=== PATIENT | female | born 1985 | race Caucasian/White ===

== ENCOUNTER → 2016-07-29 | Outpatient (CLI) | payer OTHER ==
[~2016-07-29] MED LIST: ACET50TA PO; IBUP-1114 PO; IBUP100SUS PO; PREN1TAB11 PO; PRENTAB26 PO; TUMS500C PO
[2016-07-29 12:34] LABS: ALBUMIN 3.4 GM/DL (3.2-5.2); ALBUMIN/GLOBULIN RATIO 0.94 (1.00-1.93); ALKALINE PHOSPHATASE 58 U/L (45-117); ALT/SGPT 22 U/L (12-78); ANION GAP 7 MEQ/L (8-16); AST/SGOT 18 U/L (15-37); BILIRUBIN,DIRECT < 0.1 MG/DL (0.0-0.2); BILIRUBIN,TOTAL 0.4 MG/DL (0.2-1.0); BLOOD UREA NITROGEN 13 MG/DL (7-18); CALCIUM LEVEL 8.6 MG/DL (8.5-10.1); CARBON DIOXIDE LEVEL 29 MEQ/L (21-32); CHLORIDE LEVEL 107 MEQ/L (98-107); CHOLESTEROL LEVEL 180 MG/DL (<200); CREATININE FOR GFR 0.62 MG/DL (0.55-1.02); GLOMERULAR FILTRATION RATE > 60.0 (>60); GLUCOSE, FASTING 83 MG/DL (70-105); POTASSIUM SERUM 4.1 MEQ/L (3.5-5.1); SODIUM LEVEL 143 MEQ/L (136-145); TRIGLYCERIDES LEVEL 275 MG/DL (<150)
== END ==
LOC: M LAB 10:54
PROVIDERS: ATTEND Nurse Practitioner Family
DX: A15.0 Tuberculosis of lung (principal); E04.0 Nontoxic diffuse goiter; Z13.220 Encounter for screening for lipoid disorders

== ENCOUNTER → 2017-05-29 | Outpatient (REF) | payer OTHER | LOC: M LAB REF 12:56 | DX: J11.1 Influenza due to unidentified influenza virus with other respiratory manifestations (principal) | CPT/HCPCS: 87633 ==

== ENCOUNTER 2017-07-03 09:22 | Emergency (ER) | payer OTHER ==
[2017-07-03] MEDS: METOCLOPRAMIDE INJ 10MG/2ML VIAL (J2765) IV (10:14)
[2017-07-03] MEDS: NS 1,000 ML IV (10:14)
[2017-07-03 10:17] LABS: BASO % 0.4 % (0.0-1.0); EOS # 0.4 10^3/uL (0.0-0.50); EOS % 4.6 % (0.0-3.0); HEMATOCRIT 42.6 % (36.0-47.0); HEMOGLOBIN 14.6 g/dl (12.0-16.0); IMMATURE GRANULOCYTE % 0.2 % (0-3.0); LYMPH # 1.8 10^3/uL (1.5-4.5); LYMPH % 22.2 % (24.0-44.0); MEAN CORPUSCULAR HEMOGLOBIN 30.6 pg (27.0-33.0); MEAN CORPUSCULAR HGB CONC 34.3 g/dl (32.0-36.5); MEAN CORPUSCULAR VOLUME 89.3 fl (80.0-96.0); MONO # 0.3 10^3/uL (0.0-0.8); MONO % 3.7 % (0.0-5.0); NEUTROPHILS # 5.7 10^3/uL (1.8-7.7); NEUTROPHILS % 68.9 % (36.0-66.0); PLATELET COUNT, AUTOMATED 172 10^3/uL (150-450); RED BLOOD COUNT 4.77 10^6/uL (4.00-5.40); RED CELL DISTRIBUTION WIDTH 12.5 % (11.5-14.5); WHITE BLOOD COUNT 8.3 10^3/uL (4.0-10.0)
[2017-07-03 10:43] LABS: ALBUMIN 3.4 GM/DL (3.2-5.2); ALBUMIN/GLOBULIN RATIO 0.81 (1.00-1.93); ALKALINE PHOSPHATASE 81 U/L (45-117); ALT/SGPT 35 U/L (12-78); ANION GAP 5 MEQ/L (8-16); AST/SGOT 33 U/L (7-37); BILIRUBIN,DIRECT < 0.1 MG/DL (0.0-0.2); BILIRUBIN,TOTAL 0.2 MG/DL (0.2-1.0); BLOOD UREA NITROGEN 10 MG/DL (7-18); CALCIUM LEVEL 8.3 MG/DL (8.5-10.1); CARBON DIOXIDE LEVEL 27 MEQ/L (21-32); CHLORIDE LEVEL 107 MEQ/L (98-107); CREATININE FOR GFR 0.75 MG/DL (0.55-1.30); GLOMERULAR FILTRATION RATE > 60.0 (>60); GLUCOSE, FASTING 88 MG/DL (70-100); HCG, SERUM QUANTITATIVE < 1.0 MIU/ML; LIPASE 116 U/L (73-393); POTASSIUM SERUM 3.7 MEQ/L (3.5-5.1); SODIUM LEVEL 139 MEQ/L (136-145); TOTAL PROTEIN 7.6 GM/DL (6.4-8.2)
[2017-07-03 10:57] LABS: INFLUENZA A AMPLIFICATION NEGATIVE (NEGATIVE); INFLUENZA B AMPLIFICATION NEGATIVE (NEGATIVE)
[2017-07-03 11:38] LABS: APPEARANCE, URINE CLOUDY (CLEAR); BACTERIA, URINE AUTO NEGATIVE (NEGATIVE); BILIRUBIN, URINE AUTO NEGATIVE (NEGATIVE); BLOOD, URINE BLOOD NEGATIVE (NEGATIVE); COLOR, URINE YELLOW (YELLOW); GLUCOSE, URINE (UA) AUTO NEGATIVE (NEGATIVE); KETONE, URINE AUTO NEGATIVE (NEGATIVE); LEUKOCYTE ESTERASE, URINE AUTO TRACE (NEGATIVE); MUCUS, URINE LARGE (NEGATIVE); NITRITE, URINE AUTO NEGATIVE (NEGATIVE); PROTEIN, URINE AUTO NEGATIVE (NEGATIVE); RBC, URINE AUTO 1 /HPF (0-3); SPECIFIC GRAVITY URINE AUTO 1.023 (1.002-1.035); SQUAMOUS EPITHELIAL CELL UR AU 38 /HPF (0-6); UROBILINOGEN, URINE AUTO 0.2 mg/dL (0.0-2.0); WBC, URINE AUTO 2 /HPF (0-3)
== END 2017-07-03 12:37 | disposition home or self-care (01) ==
LOC: M ED 09:22
DX: J06.9 Acute upper respiratory infection, unspecified (principal); J45.909 Unspecified asthma, uncomplicated; F33.9 Major depressive disorder, recurrent, unspecified; Z79.3 Long term (current) use of hormonal contraceptives
CPT/HCPCS: J2765

== ENCOUNTER 2018-07-04 13:43 | Emergency (ER) | payer OTHER ==
[~2018-07-04] VITALS: Ht 167.6 cm; Wt 80.3 kg
[~2018-07-04 13:43] MED LIST changes: +MAPA500T2 PO; +TESS100C PO; +TRI-TAB16; +ZOFR4TAB14 PO
[2018-07-04] MEDS ORDERED: SERT-155 (13:51)
[2018-07-04 14:56] LABS: INFLUENZA A AMPLIFICATION NEGATIVE (NEGATIVE); INFLUENZA B AMPLIFICATION NEGATIVE (NEGATIVE)
[2018-07-04] MEDS ORDERED: MUCI600T37 PO (15:10)
[2018-07-04] MEDS ORDERED: TESS100C PO (15:10)
[2018-07-04 15:16] VITALS: BP 121/83
== END 2018-07-04 15:27 | disposition home or self-care (01) ==
LOC: M ED 13:43
DX: J20.9 Acute bronchitis, unspecified (principal); J45.909 Unspecified asthma, uncomplicated; Z86.59 Personal history of other mental and behavioral disorders; Z88.8 Allergy status to other drugs, medicaments and biological substances

== ENCOUNTER → 2019-08-04 | Outpatient (CLI) | payer OTHER ==
[~2019-08-04] MED LIST changes: -ACET50TA PO; +IBUP100S44 PO; -IBUP100SUS PO; +MAPA500T17 PO; +MUCI600T37 PO; +SERT50TA29
--- NOTE | 2019-08-04 17:33 | REP ---
Clinical: Chronic bilateral knee pain. Technique: AP, lateral, bilateral oblique and sunrise views of the right and left knee. Findings: Right knee demonstrates minimal increased sclerosis along the medial tibial plateau as well as mild patellofemoral joint space narrowing. Remainder of the examination is age-appropriate. No acute fracture or dislocation. No effusion. Left knee demonstrates minimal increased sclerosis along the medial tibial plateau as well as mild patellofemoral joint space narrowing. Remainder of the examination is age-appropriate. No acute fracture or dislocation. Impression: Very minimal symmetric age-related degenerative changes. Electronically Signed by Honorio Arana MD 08/04/2019 05:25 P
== END ==
LOC: M WUC 13:07
PROVIDERS: ATTEND Physician Assistant
DX: M25.561 Pain in right knee (principal); M25.562 Pain in left knee

== ENCOUNTER → 2019-08-17 | Outpatient (CLI) | payer OTHER ==
[2019-08-17 12:05] LABS: BASO # 0.1 10^3/uL (0.0-0.2); BASO % 0.7 % (0.0-1.0); C REACTIVE PROTEIN QUANTITATIV < 0.30 MG/DL (0.00-0.30); EOS # 0.3 10^3/uL (0.0-0.5); EOS % 4.5 % (0.0-3.0); HEMATOCRIT 43.5 % (36.0-47.0); HEMOGLOBIN 14.6 g/dl (12.0-15.5); LYMPH # 2.2 10^3/uL (1.5-5.0); LYMPH % 30.8 % (24.0-44.0); MEAN CORPUSCULAR HEMOGLOBIN 30.7 pg (27.0-33.0); MEAN CORPUSCULAR HGB CONC 33.6 g/dl (32.0-36.5); MEAN CORPUSCULAR VOLUME 91.4 fl (80.0-96.0); MONO # 0.3 10^3/uL (0.0-0.8); NEUTROPHILS # 4.4 10^3/uL (1.5-8.5); NEUTROPHILS % 59.7 % (36.0-66.0); PLATELET COUNT, AUTOMATED 231 10^3/uL (150-450); RED BLOOD COUNT 4.76 10^6/uL (4.00-5.40); RHEUMATOID FACTOR QUANT < 10.0 IU/ML (<15.0); WHITE BLOOD COUNT 7.3 10^3/uL (4.0-10.0)
[2019-08-17 12:29] LABS: ERYTHROCYTE SEDIMENTATION RATE 12 mm/hr (0-20)
[2019-08-23 14:07] LABS: ANTI DOUBLE STRAND-DNA AB <1 IU/mL (0-9); ANTINUCLEAR ANTIBODIES DIRECT Positive (Negative); HLA-B27 Negative (.); Lyme Disease IgG/IgM Antibodie <0.91 ISR (0.00-0.90); Lyme Disease IgM Ab Quantitati <0.80 index (0.00-0.79); RNP ANTIBODIES <0.2 AI (0.0-0.9); SJOGREN'S ANTI SS-A <0.2 AI (0.0-0.9); SJOGREN'S ANTI SS-B 1.7 AI (0.0-0.9); SMITH ANTIBODIES <0.2 AI (0.0-0.9)
== END ==
LOC: M LAB 10:52
PROVIDERS: ATTEND Orthopaedic Surgery
DX: M25.562 Pain in left knee (principal)

== ENCOUNTER 2020-06-01 10:39 | Emergency (ER) | payer OTHER ==
[~2020-06-01] VITALS: Ht 167.6 cm; Wt 84.3 kg
--- OUTSIDE RECORDS SUMMARY | 2020-06-01 10:48 | CCD ---
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 Active Not available hydroxyzine HCl 25 mg tablet Take 1 tablet every day by oral route at bedtime. 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/24/2016 History Emotional State Finding Active 11/18/2017 History Pain in Right Knee Active 08/03/2019 History Pain in Left Knee Active 08/03/2019 History Seasonal Allergic Rhinitis Active 09/21/2019 Histo ry Mild Intermittent Asthma Active 09/21/2019 History Rheumatoid Arthritis of Multiple Joints Active 09/21/[address] Concept Active 09/21/2019 History Hypertrophic Condition of Skin Active 10/29/2019 H istory Screening for Malignant Neoplasm of Cervix Active 10/[address] Concept Active 10/29/2019 History Breast Neoplasm Screening Status Active 10/29/2019 History Procedures Notes: elbow surgery Results Lab Results None recorded. Past Encounters 03/06/2020 Tension-type Headache; Psychophysiologic Insomnia; Allergic Rhinitis Robson Beavers, RPA-C: [address] [facility], [facility] [address], [place] [address], Ph. Social History Tobacco Smoking Status Never Smoker Vaccine List Vaccine Type influenza, seasonal, injectable 02/13/2016 Tdap 10/15/2010 Plan of Care Reminders Provider Appointments None recorded. Lab None recorded. Referral None recorded. Procedures None recorded. Surgeries None recorded. Imaging None recorded. Vitals 03/06/2020 03:50PM ESTABLISHED [id number] Height Weight BMI Blood Pressure 66 in 183 lbs 6.4 oz 29.6 kg/m2 127/85 mm[Hg ] 10/29/2019 Height Weight Blood Pressure 66 in 183 lbs 2.08 oz 116/81 mm[Hg] 09/21/2019 Height Weight Blood Pressure 66 in 182 lbs 8 oz 118/82 mm[Hg] 08/03/2019 Height Weight Blood Pressure 66 in 181 lbs 4 oz 119/80 mm[Hg]
--- OUTSIDE RECORDS SUMMARY | 2020-06-01 10:48 | CCD ---
Author Organization Unknown Address [address] [place] [address] Phone [phone] Care Team Providers Care Press Loader Name Role Phone Robson Beavers Jeannette Unavailable Unavailable Allergies Code Code System Name Reaction Severity Status Onset NKDA Notes: SEASONAL Medications Name Status Start Date Stop Date albuterol sulfate HFA 90 mcg/actuation aerosol inhaler Active Not available cefuroxime axetil 500 mg tablet TAKE 1 TABLET BY MOUTH EVERY 12 HOURS FOR 10 DAYS Completed 03/06/2020 fluticasone propionate 50 mcg/actuation nasal spray,suspension SPRAY ONE SPRAY IN EACH NOSTRIL ONCE A DAY Active Not available hydroxyzine HCl 25 mg tablet TAKE ONE TABLET BY MOUTH AT BEDTIME Completed 11/2020 zawukpow-foaewmtvt-zrzcgzaxg 3.5 mg-10,000 unit/mL-1 % ear d rops,susp Completed 03/06/2020 prednisone 5 mg tablet TAKE TWO TABLETS BY MOUTH EVERY MORNING AND TAKE ONE TABLET BY MOUTH EVERY EVENING FOR 5 DAYS THEN TAKE ONE TABLET BY MOUTH TWICE A DAY FOR Completed 03/06/2020 sumatriptan 25 mg tablet TAKE 1 TABLET BY MOUTH AT HEADACHE ONSET REPEAT WITH 1 TABLET IF HEADACHE PERSIST AFTER 2 HOURS MAXIMUM DAILY DOSE 2 Active Not available Problems Name Status Onset [...] Results Lab Results None recorded. Past Encounters 05/22/2020 Painless Rectal Bleeding EL FalconC: [address] , [facility] [address], [place] [address], Ph. 03/06/2020 Tension-type Headache; Psychophysiologic Insomnia; Allergic Rhinitis EL SantoC: [address] , [facility] [address], [place] [address], Ph. Social History Tobacco Smoking Status Never Smoker Vaccine List Vaccine Type influenza, seasonal, injectable 02/13/2016 Tdap 10/15/2010 Plan of Care Patient Instructions Please go to the ER if bleeding recurred , faintness, dizziness, black tarry stool, abdominal pain, fever, chills, pain. We have referred you to gastroenterology Reminders Provider Appointments None recorded. Lab None recorded. Referral None recorded. Procedures None recorded. Surgeries None recorded. Imaging None recorded. Vitals 05/22/2020 11:50AM [facility] 20 Height Blood Pressure 66 in 153/93 mm[Hg] 03/06/2020 03:50PM ESTABLISHED [id number] Height Weight BMI Blood Pressure 66 in 183 lbs 6.4 oz 29.6 kg/m2 127/85 mm[Hg ] 10/29/2019 Height Weight BMI Blood Pressure 66 in 183 lbs 2.08 oz 29.66 kg/m2 116/81 mm[H g] 09/21/2019 Height Weight BMI Blood Pressure 66 in 182 lbs 8 oz 29.56 kg/m2 118/82 mm[Hg] 08/03/2019 Height Weight BMI Blood Pressure 66 in 181 lbs 4 oz 29.36 kg/m2 119/80 mm[Hg]
--- OUTSIDE RECORDS SUMMARY | 2020-06-01 10:49 | CCD ---
Author Author [facility] Organization [facility] Address Unknown Phone Unavailable Care Team Providers Care Surg Rn Name Role Phone BEAVERS, MICHAEL ROBSON RPA-C Unavailable Unavailable BEAVERS, MICHAEL ROBSON RPA-C Unavailable Unavailable BEAVERS, MICHAEL ROBSON RPA-C Unavailable Unavailable BEAVERS, MICHAEL ROBSON RPA-C Unavailable Unavailable BEAVERS, MICHAEL ROBSON RPA-C Unavailable Unavailable BEAVERS, MICHAEL ROBSON RPA-C Unavailable Unavailable BEAVERS, MICHAEL ROBSON RPA-C Unavailable Unavailable BEAVERS, MICHAEL ROBSON RPA-C Unavailable Unavailable BEAVERS, MICHAEL ROBSON RPA-C Unavailable Unavailable BEAVERS, MICHAEL ROBSON RPA-C Unavailable Unavailable BEAVERS, MICHAEL ROBSON RPA-C Unavailable Unavailable BEAVERS, MICHAEL ROBSON RPA-C Unavailable Unavailable BEAVERS, MICHAEL ROBSON RPA-C Unavailable Unavailable BEAEVRS, MICHAEL ROBSON RPA-C Unavailable Unavailable BEAVERS, MICHAEL ROBSON RPA-C Unavailable Unavailable BEAVERS, MICHAEL ROBSON RPA-C Unavailable Unavailable BEAVERS, MICHAEL ROBSON RPA-C Unavailable Unavailable BEAVERS, MICHAEL ROBSON RPA-C Unavailable Unavailable BEAVERS, MICHAEL ROBSON RPA-C Unavailable Unavailable BEAVERS, MICHAEL ROBSON RPA-C Unavailable Unavailable BEAVERS, MICHAEL ROBSON RPA-C Unavailable Unavailable BEAVERS, MICHAEL ROBSON RPA-C Unavailable Unavailable BEAVERS, MICHAEL ROBSON RPA-C Unavailable Unavailable BEAVERS, MICHAEL ROBSON RPA-C Unavailable Unavailable BEAVERS, MICHAEL ROBSON RPA-C Unavailable Unavailable BEAVERS, MICHAEL ROBSON RPA-C Unavailable Unavailable BEAVERS, MICHAEL ROBSON RPA-C Unavailable Unavailable BEAVERS, MICHAEL ROBSON RPA-C Unavailable Unavailable BEAVERS, MICHAEL ROBSON RPA-C Unavailable Unavailable BEAVERS, MICHAEL ROBSON RPA-C Unavailable Unavailable BEAVERS, MICHAEL ROBSON RPA-C Unavailable Unavailable BEAVERS, MICHAEL ROBSON RPA-C Unavailable Unavailable BEAVERS, MICHAEL ROBSON RPA-C Unavailable Unavailable BEAVERS, MICHAEL ROBSON RPA-C Unavailable Unavailable BEAVERS, MICHAEL ROBSON RPA-C Unavailable Unavailable BEAVERS, MICHAEL ROBSON RPA-C Unavailable Unavailable BEAVERS, MICHAEL ROBSON RPA-C Unavailable Unavailable BEAVERS, MICHAEL ROBSON RPA-C Unavailable Unavailable BEAVERS, MICHAEL ROBSON RPA-C Unavailable Unavailable SMALLWOOD, SUKHWINDER Unavailable Unavailable SMALLWOOD, SUKHWINDER Unavailable Unavailable SMALLWOOD, SUKHWINDER Unavailable Unavailable SMALLWOOD, SUKHWINDER Unavailable Unavailable SMALLWOOD, SUKHWINDER Unavailable Unavailable SMALLWOOD, SUKHWINDER Unavailable Unavailable SMALLWOOD, SUKHWINDER Unavailable Unavailable SMALLWOOD, SUKHWINDER Unavailable Unavailable SMALLWOOD, SUKHWINDER Unavailable Unavailable SMALLWOOD, SUKHWINDER Unavailable Unavailable SMALLWOOD, SUKHWINDER Unavailable Unavailable SMALLWOOD, SUKHWINDER Unavailable Unavailable SMALLWOOD, SUKHWINDER Unavailable Unavailable SMALLWOOD, SUKHWINDER Unavailable Unavailable SMALLWOOD, SUKHWINDER Unavailable Unavailable SMALLWOOD, SUKHWINDER Unavailable Unavailable SMALLWOOD, SUKHWINDER Unavailable Unavailable SMALLWOOD, SUKHWINDER Unavailable Unavailable SMALLWOOD, SUKHWINDER Unavailable Unavailable SMALLWOOD, SUKHWINDER Unavailable Unavailable SMALLWOOD, SUKHWINDER Unavailable Unavailable SMALLWOOD, SUKHWINDER Unavailable Unavailable SMALLWOOD, SUKHWINDER Unavailable Unavailable SMALLWOOD, SUKHWINDER Unavailable Unavailable SMALLWOOD, SUKHWINDER Unavailable Unavailable Casey Arita MD Unavailable Unavailable Casey Arita MD Unavailable Unavailable Casey Arita MD Unavailable Unavailable Casey Arita MD Unavailable Unavailable Casey Arita MD Unavailable Unavailable Pasniciuc, I Che DIAZ Unavailable Unavailable Pasniciuc, Casey Bolton MD Unavailable Unavailable Pasniciuc, I Che DIAZ Unavailable Unavailable Pasniciuc, Casey Bolton MD Unavailable Unavailable Pasniciuc, I Che DIAZ Unavailable Unavailable Pasniciuc, I Che DIAZ Unavailable Unavailable Pasniciuc, Casey Bolton MD Unavailable Unavailable Pasniciuc, Casey Bolton MD Unavailable Unavailable Pasniciuc, Casey Bolton MD Unavailable Unavailable Pasniciuc, Casey Bolton MD Unavailable Unavailable Pasniciuc, Casey Bolton MD Unavailable Unavailable Pasniciuc, I Che DIAZ Unavailable Unavailable Pasniciuc, I Che DIAZ Unavailable Unavailable Pasniciuc, I Che DIAZ Unavailable Unavailable Pasniciuc, Casey Bolton MD Unavailable Unavailable Pasniciuc, I Che DIAZ Unavailable Unavailable Pasniciuc, I Che DIAZ Unavailable Unavailable Pasniciuc, I Che DIAZ Unavailable Unavailable Pasniciuc, Casey Bolton MD Unavailable Unavailable Pasniciuc, Casey Bolton MD Unavailable Unavailable Pasniciuc, Casey Bolton MD Unavailable Unavailable Pasniciuc, Casey Bolton MD Unavailable Unavailable Pasniciuc, Casey Bolton MD Unavailable Unavailable Pasniciuc, I Che DIAZ Unavailable Unavailable Pasniciuc, Casey Bolton MD Unavailable Unavailable Pasniciuc, Casey Bolton MD Unavailable Unavailable Pasniciuc, Casey Bolton MD Unavailable Unavailable Pasniciuc, Casey Bolton MD Unavailable Unavailable Pasniciuc, Casey Bolton MD Unavailable Unavailable Pasniciuc, I Che DIAZ Unavailable Unavailable Pasniciuc, Casey Bolton MD Unavailable Unavailable Pasniciuc, Casey Bolton MD Unavailable Unavailable Pasniciuc, Casey Bolton MD Unavailable Unavailable Pasniciuc, Casey Bolton MD Unavailable Unavailable Pasniciuc, Casey Bolton MD Unavailable Unavailable Pasniciuc, Casey Bolton MD Unavailable Unavailable Pasniciuc, Casey Bolton MD Unavailable Unavailable Pasniciuc, Casey Bolton MD Unavailable Unavailable Pasniciuc, Casey Bolton MD Unavailable Unavailable Pasniciuc, Casey Bolton MD Unavailable Unavailable Pasniciuc, Casey Bolton MD Unavailable Unavailable Pasniciuc, Casey Bolton MD Unavailable Unavailable Pasniciuc, Casey Bolton MD Unavailable Unavailable Park, Eunmi Unavailable Fish, B Alvino DIAZ Unavailable Unavailable Fish, B Alvino DIAZ Unavailable Unavailable Fish, B Alvino DIAZ Unavailable Unavailable Fish, B Alvino DIAZ Unavailable Unavailable Fish, Mary Jo De lOiveira MD Unavailable Unavailable Fish, B Alvino DIAZ Unavailable Unavailable Fish, B Alvino DIAZ Unavailable Unavailable Fish, B Alvino DIAZ Unavailable Unavailable Fish, B Alvino DIAZ Unavailable Unavailable Fish, B Alvino DIAZ Unavailable Unavailable Fish, B Alvino DIAZ Unavailable Unavailable Fish, B Alvino DIAZ Unavailable Unavailable Fish, B Alvino DIAZ Unavailable Unavailable Fish, B Alvino DIAZ Unavailable Unavailable Fish, B Alvino DIAZ Unavailable Unavailable Fish, B Alvino DIAZ Unavailable Unavailable Fish, B Alvino DIAZ Unavailable Unavailable Fish, B Alvino DIAZ Unavailable Unavailable Fish, B Alvino DIAZ Unavailable Unavailable Fish, B Alvino DIAZ Unavailable Unavailable Fish, B Alvino DIAZ Unavailable Unavailable Fish, B Alvino DIAZ Unavailable Unavailable Fish, B Alvino DIAZ Unavailable Unavailable Fish, B Alvino DIAZ Unavailable Unavailable Fish, B Alvino DIAZ Unavailable Unavailable Fish, B Alvino DIAZ Unavailable Unavailable Fish, B Alvino DIAZ Unavailable Unavailable Fish, B Alvino DIAZ Unavailable Unavailable Fish, B Alvino DIAZ Unavailable Unavailable Fish, B Alvino DIAZ Unavailable Unavailable Fish, B Alvino DIAZ Unavailable Unavailable Fish, B Alvino DIAZ Unavailable Unavailable Fish, B Alvino DIAZ Unavailable Unavailable Fish, B Alvino DIAZ Unavailable Unavailable Fish, B Alvino DIAZ Unavailable Unavailable Fish, B Alvino DIAZ Unavailable Unavailable Fish, B Alvino DIAZ Unavailable Unavailable Fish, B Alvino DIAZ Unavailable Unavailable Fish, B Alvino DIAZ Unavailable Unavailable Fish, B Alvino DIAZ Unavailable Unavailable Fish, B Alvino DIAZ Unavailable Unavailable Fish, B Alvino DIAZ Unavailable Unavailable Fish, B Alvino DIAZ Unavailable Unavailable Fish, B Alvino DIAZ Unavailable Unavailable Fish, B Alvino DIAZ Unavailable Unavailable Fish, B Alvino DIAZ Unavailable Unavailable Fish, B Alvino DIAZ Unavailable Unavailable Fish, B Alvino DIAZ Unavailable Unavailable Fish, B Alvino DIAZ Unavailable Unavailable Fish, B Alvino DIAZ Unavailable Unavailable Fish, B Alvino DIAZ Unavailable Unavailable Fish, B Alvino DIAZ Unavailable Unavailable Fish, B Alvino DIAZ Unavailable Unavailable [facility], KGATES Unavailable Unavailable BEAVERS, MICHAEL ROBSON RPA-C Unavailable Unavailable BEAVERS, MICHAEL ROBSON RPA-C Unavailable Unavailable BEAVERS, MICHAEL ROBSON RPA-C Unavailable Unavailable BEAVERS, MICHAEL ROBSON RPA-C Unavailable Unavailable BEAVERS, MICHAEL ROBSON RPA-C Unavailable Unavailable BEAVERS, MICHAEL ROBSON RPA-C Unavailable Unavailable BEAVERS, MICHAEL ROBSON RPA-C Unavailable Unavailable BEAVERS, MICHAEL ROBSON RPA-C Unavailable Unavailable BEAVERS, MICHAEL ROBSON RPA-C Unavailable Unavailable BEAVERS, MICHAEL ROBSON RPA-C Unavailable Unavailable BEAVERS, MICHAEL ROBSON RPA-C Unavailable Unavailable BEAVERS, MICHAEL ROBSON RPA-C Unavailable Unavailable BEAVERS, MICHAEL ROBSON RPA-C Unavailable Unavailable BEAVERS, MICHAEL ROBSON RPA-C Unavailable Unavailable BEAVERS, MICHAEL ROBSON RPA-C Unavailable Unavailable BEAVERS, MICHAEL ROBSON RPA-C Unavailable Unavailable BEAVERS, MICHAEL ROBSON RPA-C Unavailable Unavailable BEAVERS, MICHAEL ROBSON RPA-C Unavailable Unavailable BEAVERS, MICHAEL ROBSON RPA-C Unavailable Unavailable BEAVERS, MICHAEL ROBSON RPA-C Unavailable Unavailable BEAVERS, MICHAEL ROBSON RPA-C Unavailable Unavailable BEAVERS, MICHAEL ROBSON RPA-C Unavailable Unavailable BEAVERS, MICHAEL ROBSON RPA-C Unavailable Unavailable BEAVERS, MICHAEL ROBSON RPA-C Unavailable Unavailable BEAVERS, MICHAEL ROBSON RPA-C Unavailable Unavailable BEAVERS, MICHAEL ROBSON RPA-C Unavailable Unavailable BEAVERS, MICHAEL ROBSON RPA-C Unavailable Unavailable BEAVERS, MICHAEL ROBSON RPA-C Unavailable Unavailable BEAVERS, MICHAEL ROBSON RPA-C Unavailable Unavailable BEAVERS, MICHAEL ROBSON RPA-C Unavailable Unavailable BEAVERS, MICHAEL ROBSON RPA-C Unavailable Unavailable BEAVERS, MICHAEL ROBSON RPA-C Unavailable Unavailable BEAVERS, MICHAEL ROBSON RPA-C Unavailable Unavailable BEAVERS, MICHAEL ROBSON RPA-C Unavailable Unavailable BEAVERS, MICHAEL ROBSON RPA-C Unavailable Unavailable BEAVERS, MICHAEL ROBSON RPA-C Unavailable Unavailable BEAVERS, MICHAEL ROBSON RPA-C Unavailable Unavailable BEAVERS, MICHAEL ROBSON RPA-C Unavailable Unavailable BEAVERS, MICHAEL ROBSON RPA-C Unavailable Unavailable [facility], RFROST BEAVERS PA ROBSON Unavailable Unavailable Re-disclosure Warning The records that you are about to access may contain information from federally-assisted alcohol or drug abuse programs. If such information is present, then the following federally mandated warning applies: This information has been disclosed to you from records protected by federal confidentiality rules (42 CFR part 2). The federal rules prohibit you from making any further disclosure of this information unless further disclosure is expressly permitted by the written consent of the person to whom it pertains or as otherwise permitted by 42 CFR part 2. A general authorization for the release of medical or other information is NOT sufficient for this purpose. The Federal rules restrict any use of the information to criminally investigate or prosecute any alcohol or drug abuse patient.The records that you are about to access may contain highly sensitive health information, the redisclosure of which is protected by Article 27-F of the [facility] Public Health law. If you continue you may have access to information: Regarding HIV / AIDS; Provided by facilities licensed or operated by the [facility] Office of Mental Health; or Provided by the [facility] Office for People With Developmental Disabilities. If such information is present, then the following [facility] mandated warning applies: This information has been disclosed to you from confidential records which are protected by state law. State law prohibits you from making any further disclosure of this information without the specific written consent of the person to whom it pertains, or as otherwise permitted by law. Any unauthorized further disclosure in violation of state law may result in a fine or mcc sentence or both. A general authorization for the release of medical or other information is NOT sufficient authorization for further disc losure. Allergies and Adverse Reactions Type Description Substance Reaction Status Data Source(s ) Miscellaneous allergy SEASONAL SEASONAL [facility] Family History Family Member Name Family Member Gender Family Member Status Date o f Status Description Data Source(s) Unknown Female Problem (finding) 10/11/2019 12:00:00 AM EDT [facility] ([facility]) Unknown Female Problem (finding) 10/11/2019 12:00:00 AM EDT [facility] ([facility]) Encounters Encounter Providers Location Date Indications Data Source(s ) LALA Falcon: [address], [address], [place] [address], Ph. Attender: SUKHWINDER SMALLWOOD [facility] Medical 05/22/2020 12:00:00 AM CATHERINE MCKEON ([facility]) LALA Santo: [address], [place] [address], Ph. Attender: ROBSON REEVES [facility] 03/06/2020 12:00:00 AM EST MIKE ([facility]) LALA Santo: [address], [place] [address], Ph. Attender: ROBSON REEVES [facility] 03/06/2020 12:00:00 AM EST MIKE ([facility]) Psychiatric Diagnostic Evaluation (Non-Medical) Attender: [facility] 01/27/2020 12:00:00 PM EDT - 01/27/2020 12:00:00 PM EDT [facility] ([facility]) Attender: [facility] 01/27/2020 12:00:00 AM EDT [facility] ([facility]) Extended Individual Psychotherapy - 45 min Attender: [facility] 01/12/2020 09:00:00 AM EDT - 01/12/2020 09:00:00 AM EDT [facility] ([facility]) Attender: [facility] 01/12/2020 12:00:00 AM EDT [facility] ([facility]) OutpatientOFFICE/OUTPATIENT VISIT, EST Attender: Che mcginnis MD [facility] 12/13/2019 03:40:00 PM EDT - 12/13/2019 03:40:00 PM ED T [facility] Plica syndrome, right knee Pain Outpatient Attender: ELIU HAYNES [facility] 06/2019 12:55:00 PM EDT [facility] Outpatient Attender: ROBSON REEVES [facility] 10/29/2019 01:38:01 PM EDT [facility] Outpatient Referrer: Che Arita MD 10/11/2019 04:09:5 9 PM EDT [facility] OutpatientOFFICE/OUTPATIENT VISIT, NEW Attender: Che mcginnis MD [facility] 10/11/2019 03:00:00 PM EDT - 10/11/2019 03:00:00 PM ED T RashPainPolyarthritisOther specified abnormal findings of blood chemistry [facility] ([facility]) Rash Pain Polyarthritis Other specified abnormal findings of blo od chemistry Outpatient Attender: ROBSON BEAVERS LALA [facility] 09/27/2019 10:40:02 AM EDT [facility] Outpatient Attender: ELIU HAYNES PAYTONJERONIMO [facility] 09/12 10:39:01 AM EDT [facility] Outpatient Attender: ROBSON BEAVERS LALA [facility] 09/22/2019 12:00:24 AM EDT [facility] Outpatient Attender: ROBSON BEAVERS LALA [facility] 09/21/2019 09:38:01 AM EDT [facility] Outpatient Attender: ELIU HAYNES ERNST [facility] 05/2019 02:15:00 PM EDT [facility] Outpatient Attender: Alvino Schultz MD Physical Therapy 09/09/2019 0 2:45:00 PM EDT [facility] ([facility]) Outpatient [facility]: [facility]/13 10:34:03 AM EDT [facility] OFFICE OUTPATIENT NEW 30 MINUTES Attender: Alvino Schultz MD Physic al Therapy 08/16/2019 10:45:00 AM EDT [facility] ([facility]) Outpatient Att[facility]: [facility] 07/14 09:52:00 AM EDT [facility] 10:12:01 AM ED T [facility] Outpatient Attender: [facility]EN [facility] 08/03/2019 10:06:00 AM ED T [facility]/03/2019 10:03:00 AM ED T [facility]: [facility]/03/2019 09:53:00 AM ED T [facility]: [facility] 07/30/2019 10:39:00 AM ED [facility]: [facility] 07/02/2019 12:47:00 PM ED [facility] Outpatient [facility]: [facility]/02/2019 12:46:00 PM ED T [facility] Medications Medication Brand Name Start Date Product Form Dose Route Admi nistrative Instructions Pharmacy Instructions Status Indications Reaction Description Data Source(s) 25 mg 03/06/2020 12:00:00 AM EST tablet 30 TAKE ONE TABLET BY MOUTH AT BEDTIME TAKE ONE TABLET BY MOUTH AT BEDTIME SOLD: 03/07/2020 [facility] 25 mg 03/06/2020 12:00:00 AM EST tablet 9 TAKE 1 TABLET BY MOUTH AT HEADACHE ONSET REPEAT WITH 1 TABLET IF HEADACHE PERSIST AFTER 2 HOURS MAXIMUM DAILY DOSE = 2 TAKE 1 TABLET BY MOUTH AT HEADACHE ONSET REPEAT WITH 1 TABLET IF HEADACHE PERSIST AFTER 2 HOURS MAXIMUM DAILY DOSE = 2 SOLD: 03/07/2020 [facility] 50 mcg/actuation 03/06/2020 12:00:00 AM EST spray,suspension 16 SPRAY ONE SPRAY IN EACH NOSTRIL ONCE A DAY SPRAY ONE SPRAY IN EACH NOSTRIL ONCE A DAY SOLD: 03/07/2020 [facility] 5 mg 10/11/2019 12:00:00 AM EDT tablet 30 TAKE TWO TABLETS BY MOUTH EVERY MORNING AND TAKE ONE TABLET BY MOUTH EVERY EVENING FOR 5 DAYS, THEN TAKE ONE TABLET BY MOUTH TWICE A DAY FOR 5 DAYS, THEN TAKE ONE TABLET BY MOUTH EVERY MORNING FOR 5 DAYS TAKE TWO TABLETS BY MOUTH EVERY MORNING AND TAKE ONE TABLET BY MOUTH EVERY EVENING FOR 5 DAYS, THEN TAKE ONE TABLET BY MOUTH TWICE A DAY FOR 5 DAYS, THEN TAKE ONE TABLET BY MOUTH EVERY MORNING FOR 5 DAYS SOLD: 10/18/2019 [facility] Prednisone 5 MG Oral Tablet prednisone 5 mg tablet prednison e 5 mg tablet 10/11/2019 12:00:00 AM EDT completed take 2 tablets in am and one in pm for 5 days; 1 tablet BID for 5 days; 1 tablet in am for 5 days. [facility] ([facility]) 90 mcg/actuation 09/21/2019 12:00:00 AM EDT HFA aerosol inha ler 8 INHALE 2 PUFFS BY MOUTH EVERY 4 HOURS NEEDED FOR WHEEZING OR FOR SHORTNESS OF BREATH INHALE 2 PUFFS BY MOUTH EVERY 4 HOURS NEEDED FOR WHEEZING OR FOR SHORTNESS OF BREATH SOLD: 09/23/2019 [facility] 3.5-10,000-1 mg/mL-unit/mL-% 08/20/2019 12:00:00 AM EDT drop s,suspension 10 INSTILL 3 DROPS IN THE AFFECTED EAR(S) THREE TIMES A DAY FOR 7 DAYS INSTILL 3 DROPS IN THE AFFECTED EAR(S) THREE TIMES A DAY FOR 7 DAYS SOLD: 08/20/2019 [facility] 500 mg 04/19/2019 12:00:00 AM EST tablet 20 TAKE 1 TABLET BY MOUTH EVERY 12 HOURS FOR 10 DAYS TAKE 1 TABLET BY MOUTH EVERY 12 HOURS FOR 10 DAYS SOLD : 04/19/2019 [facility] Cefuroxime 500 MG Oral Tablet cefuroxime axetil 500 mg tablet TAKE 1 TABLET BY MOUTH EVERY 12 HOURS FOR 10 DAYS cefuroxime axetil 500 mg tablet TAKE 1 T ABLET BY MOUTH EVERY 12 HOURS FOR 10 DAYS co mpleted cefuroxime 500 MG Oral Tablet MIKE ([facility]) Prednisone 5 MG Oral Tablet prednisone 5 mg tablet TAKE TWO TABLETS BY MOUTH EVERY MORNING AND TAKE ONE TABLET BY MOUTH EVERY EVENING FOR 5 DAYS THEN TAKE ONE TABLET BY MOUTH TWICE A DAY FOR prednisone 5 mg tablet TAKE TWO TABLETS BY MOUTH EVERY MORNING AND TAKE ONE TABLET BY MOUTH EVERY EVENING FOR 5 DAYS THEN TAKE ONE TABLET BY MOUTH TWICE A DAY FOR completed prednisone 5 MG Oral Tablet [facility] ([facility]) Hydroxyzine Hydrochloride 25 MG Oral Tab let hydroxyzine HCl 25 mg tablet TAKE ONE TABLET BY MOUTH AT BEDTIME hydroxyzine HCl 25 mg tablet TAKE ONE TA BLET BY MOUTH AT BEDTIME completed hydroxyzine hydrochloride 25 MG Oral Tablet [facility] ([facility]) Cefuroxime 500 MG Oral Tablet cefuroxime axetil 500 mg tablet TAKE 1 TABLET BY MOUTH EVERY 12 HOURS FOR 10 DAYS cefuroxime axetil 500 mg tablet TAKE 1 T ABLET BY MOUTH EVERY 12 HOURS FOR 10 DAYS co mpleted cefuroxime 500 MG Oral Tablet [facility] ([facility]) Hydrocortisone 10 MG/ML / Neomycin 3.5 M G/ML / Polymyxin B 56273 UNT/ML Otic Suspension jvwtsgoi-apfqiyefg-ohbafjjwf 3.5 mg-10,000 unit/mL-1 % ear drops,susp uzorboqm-qpvrqamuk-fqcrzhkoo 3.5 mg-10,000 unit/mL-1 % ear drops,susp completed hydrocortisone 1 0 MG/ML / neomycin 3.5 MG/ML / polymyxin B 45501 UNT/ML Otic Suspension MIKE ([facility]) Prednisone 5 MG Oral Tablet prednisone 5 mg tablet TAKE TWO TABLETS BY MOUTH EVERY MORNING AND TAKE ONE TABLET BY MOUTH EVERY EVENING FOR 5 DAYS THEN TAKE ONE TABLET BY MOUTH TWICE A DAY FOR prednisone 5 mg tablet TAKE TWO TABLETS BY MOUTH EVERY MORNING AND TAKE ONE TABLET BY MOUTH EVERY EVENING FOR 5 DAYS THEN TAKE ONE TABLET BY MOUTH TWICE A DAY FOR completed prednisone 5 MG Oral Tablet [facility] ([facility]) Hydrocortisone 10 MG/ML / Neomycin 3.5 M G/ML / Polymyxin B 56741 UNT/ML Otic Suspension uoduhlib-inhyqymar-idwsbucdz 3.5 mg-10,000 unit/mL-1 % ear drops,susp huajcrkl-lokbarith-imjtvolke 3.5 mg-10,000 unit/mL-1 % ear drops,susp completed hydrocortisone 1 0 MG/ML / neomycin 3.5 MG/ML / polymyxin B 89573 UNT/ML Otic Suspension [facility] ([facility]) Insurance Providers Payer name Policy type / Coverage type Policy ID Covered constitution party ID Covered constitution party's relationship to ellis Policy Ellis Plan Information [facility] MCDO [id number] SP [id number] Managed [facility] - [facility] Community Plan P [id number] S [id number] Medicaid S [id number] S [id number] Managed Care - Community Plan [facility] P [id number] S [id number] Managed Care - Community Plan [facility] P [id number] S [id number] Medicaid S [id number] S [id number] [employer] MCDO [id number] SP [id number] MEDICAID [id number] SP [id number] [facility](MCAID) O [id number] S [id number] MEDICAID M [id number] [facility] [employer] M[employer]O [id number] SP [id number] [employer] [id number] SP [id number] [employer] UNAVAILABLE UNAVAILABLE [employer] [id number] SP [id number] O BLUE [id number] SP [id number] O BLUE [id number] SP [id number] [employer] P [id number] S [id number] Problems, Conditions, and Diagnoses Code Display Name Description Problem Type Effective Dates Data Source(s) F33.1 Major depressive disorder, recurrent, mo derate Major Depressive Disorder, Recurrent episode, Moderate Condition 01/27/2020 12:00:00 AM EDT [facility] ([facility]) 701.9 Skin tag Skin tag 10/29/2019 01:37:30 PM ED T [facility] left nipple Z12.39 Encounter for other screening for malign ant neoplasm of breast Encounter for other screening for malignant neoplasm of breast 0 10/29/2019 01:37:30 PM EDT [facility] V76.2 Screening for malignant neoplasms of the cervix Screening for malignant neoplasms of the cervix 10/29/2019 01:37:30 PM EDT [facility] Z01.419 Encounter for gynecological examination (general) (routine) without abnormal findings Encounter for gynecological examination (general) (routine) without abnormal findings 10/29/2019 01:37:30 PM EDT [place] Noah barr [facility] 714.0 Rheumatoid arthritis of multiple joints Rheumatoid arthritis of multiple joints 10/29/2019 01:37:30 PM EDT [facility] 09/2019 [facility] [id number] Breast neoplasm screening status Breast Neoplasm Screening Status Problem 10/29/2019 12:00:00 AM EDT [place] ([facility]) [id number] SNOMED CT Concept SNOMED CT Concept Problem 10/28 12:00:00 AM EDT [place] ([facility]) [id number] Screening for malignant neoplasm of cerv ix Screening for Malignant Neoplasm of Cervix Problem 10/29/2019 12:00:00 AM EDT [place] ([facility]) [id number] Hypertrophic condition of skin Hypertrophic Condition of Skin Problem 10/29/2019 12:00:00 AM EDT [place] ([facility]) [id number] Breast neoplasm screening status Breast Neoplasm Screening Status Problem 10/29/2019 12:00:00 AM EDT [place] ([facility]) [id number] SNOMED CT Concept SNOMED CT Concept Problem 10/28 12:00:00 AM EDT [place] ([facility]) [id number] Screening for malignant neoplasm of cerv ix Screening for Malignant Neoplasm of Cervix Problem 10/29/2019 12:00:00 AM EDT [place] ([facility]) 76554914 Hypertrophic condition of skin Hypertrophic Condition of Skin Problem 10/29/2019 12:00:00 AM EDT [place] ([facility]) V85.25 Body Mass Index 29.0-29.9, adult Body Mass Index 29.0- 29.9, adult 09/27/2019 10:38:09 AM EDT [facility] V18.0 Family history of diabetes mellitus Family history of diabetes mellitus 09/21/2019 09:37:51 AM EDT [facility] [id number] Other seasonal allergic rhinitis Other seasonal allerg ic rhinitis 09/21/2019 09:37:51 AM EDT [facility] [id number] Mild intermittent asthma, uncomplicated Mild intermittent asthma, uncomplicated 09/21/2019 09:37:51 AM EDT [facility] Z00.00 Encounter for general adult medical examination without abnormal findings Encounter for general adult medical examination without abno rmal findings 09/21/2019 09:37:51 AM EDT [facility] [id number] SNOMED CT Concept SNOMED CT Concept Problem 09/20 12:00:00 AM EDT [place] ([facility]) [id number] Rheumatoid arthritis of multiple joints Rheumatoid Arthritis of Multiple Joints Problem 09/21/2019 12:00:00 AM EDT [place] ([facility]) [id number] Mild intermittent asthma Mild Intermittent Asthma Prob peg 09/21/2019 12:00:00 AM EDT [place] ([facility]) [id number] Seasonal allergic rhinitis Seasonal Allergic Rhinitis Problem 09/21/2019 12:00:00 AM EDT [place] ([facility]) [id number] SNOMED CT Concept SNOMED CT Concept Problem 09/20 12:00:00 AM EDT [place] ([facility]) 355614362 Rheumatoid arthritis of multiple joints Rheumatoid Arthritis of Multiple Joints Problem 09/21/2019 12:00:00 AM EDT [place] ([facility]) 870271343 Mild intermittent asthma Mild Intermittent Asthma Prob peg 09/21/2019 12:00:00 AM EDT [place] ([facility]) 039752373 Seasonal allergic rhinitis Seasonal Allergic Rhinitis Problem 09/21/2019 12:00:00 AM EDT [place] ([facility]) 719.46 Pain in left knee Pain in left knee 08/03/2019 10:10:31 AM EDT [facility] 719.46 Pain in right knee Pain in right knee 0 10:10:31 AM EDT [facility] [id number] Pain in left knee Pain in Left Knee Problem 12:00:00 AM EDT [place] ([facility]) [id number] Pain in right knee Pain in Right Knee Problem 08/03/2019 12:00:00 AM EDT [place] ([facility]) [id number] Pain in left knee Pain in Left Knee Problem 12:00:00 AM EDT [place] ([facility]) [id number] Pain in right knee Pain in Right Knee Problem 08/03/2019 12:00:00 AM EDT [place] ([facility]) Surgeries/Procedures Procedure Description Date Indications Data Source(s) Psychiatric Diagnostic Evaluation (Non-Medical) 01/27/2020 12:00:00 AM EDT - 01/27/2020 12:00:00 AM EDT [facility] ([facility]) Psychiatric Diagnostic Evaluation (Non-Medical) 2019 12:00:00 AM EDT [facility] ([facility]) Extended Individual Psychotherapy - 45 min 01/12/2020 12:00:00 AM EDT - 01/12/2020 12:00:00 AM EDT [facility] ([facility]) Extended Individual Psychotherapy - 45 min 0 12:00:00 AM EDT [facility] ([facility]) OFFICE/OUTPATIENT VISIT, [facility] 12/13/2019 12:00:00 AM EDT - 12/13/2019 12:00:00 AM EDT [facility] ([facility]) OFFICE/OUTPATIENT VISIT, NEW 10/11/2019 12:00:00 AM EDT - 10/11/2019 12:00:00 AM EDT [facility] ([facility]) CERVICAL SPINE X-RAY, 4 VIEWS 10/11/2019 12:00:00 AM EDT - 10/11/2019 12:00:00 AM EDT [facility] ([facility]) CCP ANTIBODY 10/11/2019 12:00:00 AM EDT - 10/11/2019 1 2:00:00 AM EDT [facility] ([facility]) RHEUMATOID FACTOR, QUANT 10/11/2019 12:0 0:00 AM EDT - 10/11/2019 12:00:00 AM EDT [facility] ([facility]) ANTINUCLEAR ANTIBODIES ([facility]) Titer By SWT 10/11/2019 12:00:00 AM EDT - 10/11/2019 12:00:00 AM EDT [facility] ROUTINE VENIPUNCTURE 10/11/2019 12:00:00 AM EDT - 10/11/2019 12:00:00 AM EDT [facility] ([facility]) CCP ANTIBODY 10/11/2019 12:00:00 AM EDT - 10/11/2019 1 2:00:00 AM EDT [facility] ([facility]) RHEUMATOID FACTOR, QUANT 10/11/2019 12:0 0:00 AM EDT - 10/11/2019 12:00:00 AM EDT [facility] ([facility]) ASSAY OF BLOOD/URIC ACID 10/11/2019 12:0 0:00 AM EDT - 10/11/2019 12:00:00 AM EDT [facility] ([facility]) ANTINUCLEAR ANTIBODIES ([facility]) Titer By SWT 10/11/2019 12:00:00 AM EDT - 10/11/2019 12:00:00 AM EDT [facility] C-REACTIVE PROTEIN 10/11/2019 12:00:00 AM EDT - 2019 12:00:00 AM EDT [facility] ([facility]) RBC SED RATE, AUTOMATED 10/11/2019 12:00 :00 AM EDT - 10/11/2019 12:00:00 AM EDT [facility] ([facility]) MRI Lower Extremity Any Joint 08/19/2019 12:00:00 AM E DT [place] ([facility]) MRI Lower Extremity Any Joint 08/19/2019 12:00:00 AM E DT [facility] ([facility]) Results ID Date Data Source [id number] 05/23/2020 02:00:00 PM EST [facility] Name Value Range Interpretation Code Description Data Genevieve rce(s) Supporting Document(s) SARS coronavirus 2 RNA Not Detected [facility] [place] This lab was ordered by [facility] and reported by [facility]. ID Date Data Source [id number] 05/16/2020 10:30:00 AM EST [facility] Name Value Range Interpretation Code Description Data Genevieve rce(s) Supporting Document(s) SARS coronavirus 2 RNA Not Detected [facility] [place] This lab was ordered by [facility] and reported by [facility]. ID Date Data Source [id number] 05/09/2020 02:00:00 PM EST [facility] Name Value Range Interpretation Code Description Data Genevieve rce(s) Supporting Document(s) SARS coronavirus 2 RNA Not Detected [facility] [place] This lab was ordered by [facility] and reported by [facility]. ID Date Data Source [id number] 05/02/2020 10:30:00 AM EST [facility] Name Value Range Interpretation Code Description Data Genevieve rce(s) Supporting Document(s) SARS coronavirus 2 RNA Not Detected [facility] [place] This lab was ordered by [facility] and reported by [facility]. ID Date Data Source [id number] 04/25/2020 03:00:00 PM EST [facility] Name Value Range Interpretation Code Description Data Genevieve rce(s) Supporting Document(s) SARS coronavirus 2 RNA Not Detected [facility] [place] This lab was ordered by [facility] and reported by [facility]. ID Date Data Source [id number] 04/18/2020 01:00:00 PM EST [facility] Name Value Range Interpretation Code Description Data Genevieve rce(s) Supporting Document(s) SARS coronavirus 2 RNA Not Detected [facility] [place] This lab was ordered by [facility] and reported by [facility]. ID Date Data Source [id number] 04/11/2020 03:05:00 PM EST [facility] Name Value Range Interpretation Code Description Data Genevieve rce(s) Supporting Document(s) SARS coronavirus 2 RNA [facility] This lab was ordered by [facility] and reported by [facility]. ID Date Data Source [id number] 04/04/2020 02:00:00 PM EST [facility] Name Value Range Interpretation Code Description Data Genevieve rce(s) Supporting Document(s) SARS coronavirus 2 RNA [facility] This lab was ordered by [facility] and reported by [facility]. ID Date Data Source [id number] 03/28/2020 09:15:00 AM EST [facility] Name Value Range Interpretation Code Description Data Genevieve rce(s) Supporting Document(s) SARS coronavirus 2 RNA [facility] This lab was ordered by [facility] and reported by [facility]. ID Date Data Source [id number] 03/21/2020 01:05:00 PM EST [facility] Name Value Range Interpretation Code Description Data Genevieve rce(s) Supporting Document(s) SARS coronavirus 2 RNA [facility] This lab was ordered by [facility] and reported by [facility]. ID Date Data Source [id number] 03/16/2020 08:39:00 AM EST [facility] Name Value Range Interpretation Code Description Data Genevieve rce(s) Supporting Document(s) SARS coronavirus 2 RNA [facility] This lab was ordered by [facility] and reported by [facility]. ID Date Data Source [id number] 03/07/2020 09:00:00 AM EST [facility] Name Value Range Interpretation Code Description Data Genevieve rce(s) Supporting Document(s) SARS coronavirus 2 RNA [facility] This lab was ordered by [facility] and reported by [facility]. ID Date Data Source [id number] 02/29/2020 10:30:00 AM EST [facility] Name Value Range Interpretation Code Description Data Genevieve rce(s) Supporting Document(s) SARS coronavirus 2 RNA [facility] This lab was ordered by [facility] and reported by [facility]. ID Date Data Source [id number] 02/22/2020 12:00:00 PM EST [facility] Name Value Range Interpretation Code Description Data Genevieve rce(s) Supporting Document(s) SARS coronavirus 2 RNA [facility] This lab was ordered by [facility] and reported by [facility]. ID Date Data Source [id number] 02/15/2020 10:38:00 AM EST [facility] Name Value Range Interpretation Code Description Data Genevieve rce(s) Supporting Document(s) SARS coronavirus 2 RNA [facility] This lab was ordered by [facility] and reported by [facility]. ID Date Data Source [id number] 02/08/2020 02:00:00 PM EDT [facility] Name Value Range Interpretation Code Description Data Genevieve rce(s) Supporting Document(s) SARS coronavirus 2 RNA [facility] This lab was ordered by [facility] and reported by [facility]. ID Date Data Source [id number] 02/01/2020 02:25:00 PM EDT [facility] Name Value Range Interpretation Code Description Data Genevieve rce(s) Supporting Document(s) SARS coronavirus 2 RNA [facility] This lab was ordered by [facility] and reported by [facility]. ID Date Data Source [id number] 01/25/2020 10:35:00 AM EDT [facility] Name Value Range Interpretation Code Description Data Genevieve rce(s) Supporting Document(s) SARS coronavirus 2 RNA [facility] This lab was ordered by [facility] and reported by [facility]. ID Date Data Source [id number] 01/18/2020 10:00:00 AM EDT [facility] Name Value Range Interpretation Code Description Data Genevieve rce(s) Supporting Document(s) SARS coronavirus 2 RNA [facility] This lab was ordered by [facility] and reported by [facility]. ID Date Data Source [id number] 01/11/2020 09:00:00 AM EDT [facility] Name Value Range Interpretation Code Description Data Genevieve rce(s) Supporting Document(s) SARS coronavirus 2 RNA [facility] This lab was ordered by [facility] and reported by [facility]. ID Date Data Source [id number] 01/06/2020 10:00:00 AM EDT [facility] Name Value Range Interpretation Code Description Data Genevieve rce(s) Supporting Document(s) SARS coronavirus 2 RNA [facility] This lab was ordered by [facility] and reported by [facility]. ID Date Data Source [id number] 12/28/2019 11:05:00 AM EDT [facility] Name Value Range Interpretation Code Description Data Genevieve rce(s) Supporting Document(s) SARS coronavirus 2 RNA [facility] This lab was ordered by [facility] and reported by [facility]. ID Date Data Source [id number] 12/21/2019 12:00:00 PM EDT [facility] Name Value Range Interpretation Code Description Data Genevieve rce(s) Supporting Document(s) SARS coronavirus 2 RNA [facility] This lab was ordered by [facility] and reported by [facility]. ID Date Data Source [id number] 12/16/2019 11:00:00 AM EDT [facility] Name Value Range Interpretation Code Description Data Genevieve rce(s) Supporting Document(s) SARS coronavirus 2 RNA [facility] This lab was ordered by [facility] and reported by [facility]. ID Date Data Source [id number] 12/07/2019 11:09:00 AM EDT [facility] Name Value Range Interpretation Code Description Data Genveieve rce(s) Supporting Document(s) SARS coronavirus 2 RNA [facility] This lab was ordered by [facility] and reported by [facility]. ID Date Data Source [id number] 11/02/2019 03:32:00 PM EDT [facility] Name Value Range Interpretation Code Description Data Genevieve rce(s) Supporting Document(s) SARS coronavirus 2 RNA [facility] This lab was ordered by [facility] and reported by [facility]. ID Date Data Source [id number] 10/29/2019 01:07:25 PM EDT [facility] Measurements & CalculationsHeight: 66 inches (5 ft. 6 in.) 167.64 cm Weight: 183 pounds 2 oz. 83.24 kg Body Mass Index (BMI): 29.66BMI Interpretation: OverweightBody Surface Area (BSA): 1.93Weight Management Education Done (Nutrition/Physical Activity)Vital SignsTemperature: 98.7F 37.06C tympanic Pulse Rate: 83 beats/minuteRespiratory Rate: 18 respirations/minuteBlood Pressure: 116/81 left arm sitting automaticO2 Saturation: 97% Vital Signs performed by: Bernice Dowell LPN, October 29, 2019 1:09 PMInitial Intake Information From: patientRoom #: 2Infectious Disease / Travel ScreeningRecent travel for you or any close contacts? NoHave you had any close contact with anyone diagnosed with or under investigation for COVID-19 (coronavirus)? NoFever? NoRespiratory symptoms: cough, cold, congestion, shortness of breath, difficulty breathing? NoLoss of smell? NoLoss of taste? NoSmoking, Tobacco, Vaping or Smoke Exposure StatusSmoke Status: former smokerTobacco Use: NoDo you vape? NoPassive Smoke Exposure: YesPassive Smoke Exposure comments: outsideMenstrual HistoryLast Menstrual Period (LMP): 10/10/2019Any possibility of ? NoHealthcare HistorySince your last office visit...Have you been admitted to the hospital? NoHave you been to an emergency room (ER) or urgent care clinic? NoHave you seen another healthcare provider? Yes - ortho groupHave you seen a dentist? Yes - [facility]Int[facility] performed by: Bernice Dowell LPN, October 29, 2019 1:10 PMRate Your HealthIn general, would you say your health is? FairPain AssessmentAre you currently having any pain which... You would like your provider to address? No Affects your activity level? NoDepression Screening - PHQ-2Over the last two weeks, have you... Had little interest or pleasure in doing things? Not at all Been feeling down, depressed, or hopeless? Not at all PHQ-2 Score: 0Anxiety Screening - THANIA-2Over the last two weeks, have you been... Feeling nervous, anxious, or on edge? Not at all Unable to stop or control worrying? Not at all THANIA-2 Score: 0Food InsecurityWithin the past year...Did you worry whether your food would run out before you got money to buy more? NoWas there a time when the food you bought didn't last and you didn't have money to get more? NoScreening, Brief Intervention, & Referral to Treatment (SBIRT)Pre-Screening Questions How many times have you have 4 or more drinks in a day? 0How many times have you used an illegal drug or used a prescription medication for a non- medical reason? 0Performed by: Bernice Dowell LPN, October 29, 2019 1:11 PMPatient History Medical History:AsthmaSeasonal allergiesTB- treated in pastpossible Sjogren's 08/2019RA in both knees-10/05/19urgical History:elbow surgeryFamily History:Diabetes (Father)Social/Personal History: OB Past History History Total Preg.: 4 Full Term: 3 Spontaneous Ab: 1 LivinMenstrual History LMP: 10/10/2019Use Contraception? NoExperienced Menopause? NoChief ComplaintPap smearHistory of Present Illness (HPI)34 yo female pt presents for routine well woman exam and pap smear. No com plaints. Declines STI screening. Seen for initial Rheum intake 10/05/2019, diagnosed with rheumatoid arthritis in her knees and possible Sjogren's still. Returns 12/13/2019. Started on Prednisone, ends in 4 days. HPI performed by: Robson BENJAMIN, October 29, 2019 1:24 PMTransitions of Care InboundProblem ReviewProblem List was reviewed and/or updated during this visit.Medication Reconciliation & ReviewMedication List was reviewed and/or updated during this visit, including review of any [id number] medications, herbal therapies, and/or supplements.Allergy ReviewAllergy List was reviewed and/or updated during this visit.Adult Preventive CareLabs/Meds/Other Counseling-Nutrition and Physical Activity:BMI Interpretation: Overweight (10/29/2019) Counseling: Done (10/29/2019) Physical Activity: Done (10/29/2019)Review of Systems General: Denies loss of appetite, chills, dizziness, fatigue, fever, headache, feeling ill. Cardiovascular: Denies chest pain, palpitations, feeling faint. Respira tory: Denies cough, difficulty breathing, shortness of breath. Breast: Denies discoloration, tenderness, breast changes, breast lump, nipple discharge. Gastrointestinal: Denies nausea, vomiting, diarrhea, pain or discomfort. Genitourinary: Denies pain with urination, burning with urination, urinary frequency, blood in urine, pelvic pain, vaginal discharge, vaginal sores, vaginal itching. Skin: Denies rash, redness, itching. Physical ExamGeneral Appearance: well nourished, well hydrated, no acute distressEyes, External: conjunctivae and lids normal, EOMIThyroid: no nodules, masses, tenderness, or enlargementBreasts, Inspection: no asymmetry, skin changes, or nipple discharge, flesh toned skin tag on left nipple (unchanged per patient)Breasts, Palpation: no masses or tendernessPeripheral Circulation: no clubbing, cyanosis, edema, or varicositiesAbdomen: soft, non-tender, no masses, bowel sounds normalExternal Genitalia: normal, no lesions or dischargeVulva: normal, no lesions or dischargeVagina: normal appearance, no discharge or lesions; no evidence of cystocele or rectoceleCervix: normal appearance, no lesions or discharge, no cervical motion tenderness, no friabilityUterus: normal size and position, midline, mobileAdnexa: no masses or tendernessGait & Station: normalSkin, Inspection: no rashes, lesions, or ulcerationsAxillary Nodes: no adenopathyOrientation: oriented to time, place, and personMood & Affect: no depression, anxiety, or agitationJudgment & Insight: intactChaperone During Exam: Titus Villanueva Management Plan Transitions of CareInboundRate Your HealthIn general, would you say your health is? FairAssessment & Plan Problems:Added: Encounter for gynecological examination (general) (routine) without abnormal findings (WAD21-Y42.419) Assessment: Instructions: You have had your PAP smear done today to test for cervical cancer. The results typically take about 7 days to return. You will be notified of your results, but you should expect a phone call if your results are abnormal in any way. If pap is normal, current recommendation is to repeat this test every 2-3 years. Recommend annual well woman and breast exams.Screening for malignant neoplasms of the cervix (ICD-V76.2) (QTR00-U33.4) Assessment: Instructions: As above.Encounter for other screening for malignant neoplasm of breast (ICD10- Z12.39) Assessment: Instructions: Clinical breast exam was performed in the office today, no abormalities identified. Patient instructed on how to perform self breast exams at home and recommended to perform this monthly. Notify the o ffice of any concerns.Skin tag (ICD-701.9) (OMJ16-V55.8): left nipple Assessment: Instructions: Monitor.Changed:From: Dx of Anti-nuclear factor positive (ICD-795.79) (SRH93-O18.8): possible Sjogren's To: Rheumatoid arthritis of multiple joints (ICD-714.0) (FIT03-W65.89): 09/2019 [facility] RheumAssessed:Rheumatoid arthritis of multiple joints (ICD-714.0) (ICD10- M06.89): 09/2019 [facility] Rheum Assessment: Instructions: Continue per harness cleaner.Assessment not Saved Skin tag (ADL79-M35.8): Patient Instructions/Care Plan: Encounter for gynecological examination (general) (routine) without abnormal findings: You have had your PAP smear done today to test for cervical cancer. The results typically take about 7 days to return. You will be notified of your results, but you should expect a phone call if your results are abnormal in any way. If pap is normal, current recommendation is to repeat this test every 2-3 years. Recommend annual well woman and breast exams.Screening for malignant neoplasms of the cervix: As above.Encounter for other screening for malignant neoplasm of breast: Clinical breast exam was performed in the office today, no abormalities identified. Patient instructed on how to perform self breast exams at home and recommended to perform this monthly. Notify the office of any concerns.Skin tag: Monitor.Rheumatoid arthritis of multiple joints: Continue per harness cleaner. Plan developed in collaboration with patient and/or familyMedications:CEPHALEXIN 500 MG ORAL CAPSULEPREDNISONE 20 MG ORAL TABLETALBUTEROL SULFATE HFA 108 (90 BASE) MCG/ACT INHALATION AEROSOL SOLUTIONMedication Changes:Added: PREDNISONE 10 MG ORAL TABLET-take two in the morningCEPHALEXIN 500 MG ORAL CAPSULE-take one capsule by mouth three times a day for 7 daysChanged:From: ORAL PREDNISONE 10 MG ORAL TABLET Qty: [id number] To: PREDNISONE 20 MG ORAL TABLET-take 2 tablets by mouth everyday for 8 daysAllergies:* SEASONAL (Moderate)Orders:CYTP C/V AUTO THIN LYR PREPJ SCR SYS PHYS [CPT-74960] Preventive, Est, (18-39) [CPT-14548] Follow-Up Return to clinic: in 1 year for preventive care visitAdditional Follow-Up: well womanClinical Visit Summary Completed Name Value Range Interpretation Code Description Data Genevieve rce(s) Supporting Document(s) ID Date Data Source [id number] 10/26/2019 03:49:00 PM EDT [facility] Name Value Range Interpretation Code Description Data Genevieve rce(s) Supporting Document(s) SARS coronavirus 2 RNA [facility] This lab was ordered by [facility] and reported by [facility]. ID Date Data Source [id number] 10/19/2019 11:28:00 AM EDT [facility] Name Value Range Interpretation Code Description Data Genevieve rce(s) Supporting Document(s) SARS coronavirus 2 RNA [facility] This lab was ordered by [facility] and reported by [facility]. ID Date Data Source [id number] 10/12/2019 11:43:00 AM EDT [facility] Name Value Range Interpretation Code Description Data Genevieve rce(s) Supporting Document(s) SARS CORONAVIRUS 2 RNA [facility] This lab was ordered by [facility] and reported by [facility]. ID Date Data Source [id number] 10/11/2019 04:15:00 PM [facility] CERVICALCLINICAL HISTORY: Neck pain, no trauma.COMPARISON: None available.TECHNIQUE: AP, lateral, and obliques of the cervical spine.FINDINGS: There is straightening of the cervical lordosis. No alignment abnormality is seen. Mild posterior spurring is present at C4-5 and possibly C7-T1. No significant disc space narrowing is identified. Prevertebral soft tissues do not appear widened. There is slight calcification of the anterior longitudinal ligament at C6-7. Neural foramina appear widely patent.IMPRESSION: Mild degenerative changes. Possible muscle spasm. No alignment abnormality or foraminal narrowing identifiedDictated by: ALVINO LASSITER M.D. on 10/11/2019 04:25 PM Transcribed by: babs on 10/11/2019 04:28 PMcc: Name Value Range Interpretation Code Description Data Genevieve rce(s) Supporting Document(s) ID Date Data Source [id number] 10/11/2019 03:48:00 PM EDT [facility] Name Value Range Interpretation Code Description Data Genevieve rce(s) Supporting Document(s) 15 mm/h (0-20) ESR [facility] ([facility]) Unless otherwise specified, testing perf ormed by [facility] [address] [place] [address]

ID Date Data Source [id number] 10/11/2019 03:48:00 PM EDT [facility] ([facility]) Name Value Range Interpretation Code Description Data Genevieve rce(s) Supporting Document(s) 4.1 g/dL (3.5-4.6) ALBUMIN [facility] ([facility]) Unless otherwise specified, testing perf ormed by [facility] [address] [place] [address]

ID Date Data Source [id number] 10/11/2019 03:48:00 PM EDT [facility] ([facility]) Name Value Range Interpretation Code Description Data Genevieve rce(s) Supporting Document(s) 20 U/L (12-78) ALT (SGPT) [facility] ([facility]) Unless otherwise specified, testing perf ormed by [facility] [address] [place] [address] 01016

ID Date Data Source [id number] 10/11/2019 03:48:00 PM EDT [facility] ([facility]) Name Value Range Interpretation Code Description Data Genevieve rce(s) Supporting Document(s) 17 U/L (11-39) AST (SGOT) [facility] ([facility]) Unless otherwise specified, testing perf ormed by [facility] [address] [place] [address] 525[address]

ID Date Data Source [id number] 10/11/2019 03:48:00 PM EDT [facility] ([facility]) Name Value Range Interpretation Code Description Data Genevieve rce(s) Supporting Document(s) >60 (>59) GFR ( AMER) [facility] ([facility]) 0.81 mg/dL (0.60-1.00) CREATININE [facility] ([facility]) >60 (>59) GFR [facility] GFR INTERPRETATION [facility] ([facility]) --NORMAL KIDNEY FUNCTION OR MILD DISEASE - GFR >OR= 60CHRONIC KIDNEY DISEASE - GFR 15 - 59RENAL FAILURE - GFR <15 Est. GFR calculation based on the MDRDstudy equation, which assumes a steadystate for creatinine. Est. GFR should notbe used for medication dosing.Unless otherwise specified, testing performed by [facility] [employer] [address] [place] [address]

ID Date Data Source [id number] 10/11/2019 03:48:00 PM EDT [facility] ([facility]) Name Value Range Interpretation Code Description Data Genevieve rce(s) Supporting Document(s) 9.0 10*3/uL (4.1-11.0) WBC [facility] ([facility] 4.59 10*6/uL (4.00-5.40) RBC [facility] 41.7 % (36.0-47.0) HCT [facility] ([facility]) 14.1 g/dL (12.0-16.0) HGB [facility] ([facility]) 30.8 pg (27.0-32.0) MCH [facility] ([facility]) 33.9 g/dL (32.0-36.0) MCHC [facility] ([facility]) 90.8 fL (80.0-95.0) MCV [facility] ([facility]) 13.9 % (10.5-14.5) RDW [facility] ([facility]) 9.7 fL (7.1-10.7) MPV [facility] ([facility]) 211 10*3/uL (150-450) PLT [facility] ([facility]) 66.3 % (35.0-75.0) NEUT % [facility] ([facility]) 3.5 % (0.0-8.0) MONO % [facility] 25.1 % (16.0-52.0) LYMPH % [facility] ([facility]) 5.9 10*3/uL (1.8-7.7) NEUT # [facility] ([facility]) 4.3 % (0.0-5.0) EOS % [facility] 0.8 % (0.0-4.0) BASO % [facility] 2.3 10*3/uL (1.2-4.8) LYMPH # [facility] ([facility]) 0.3 10*3/uL (0.0-0.8) MONO # [facility] ([facility]) 0.4 10*3/uL (0.0-0.5) EOS # [facility] ([facility]) 0.1 10*3/uL (0.0-0.2) BASO # [facility] ([facility]) Unless otherwise specified, testing perf ormed by [facility] [address] [place] [address] 88165

ID Date Data Source [id number] 10/11/2019 03:48:00 PM EDT [facility] ([facility]) Name Value Range Interpretation Code Description Data Genevieve rce(s) Supporting Document(s) 4.0 mg/dL (2.6-6.0) URIC ACID [facility]) Unless otherwise specified, testing perf ormed by [facility] [address] [place] [address]

ID Date Data Source [id number] 10/11/2019 03:48:00 PM EDT [facility] ([facility]) Name Value Range Interpretation Code Description Data Genevieve rce(s) Supporting Document(s) Negative ANAIFA [facility] ID Date Data Source [id number] 10/11/2019 03:48:00 PM EDT [facility] ([facility]) Name Value Range Interpretation Code Description Data Genevieve rce(s) Supporting Document(s) <0.3 (0.0-0.5) C REACTIVE PROTEIN @ [facility] ( [facility]) Unless otherwise specified, testing perf ormed by [facility] [employer] [address] [place] [address]

ID Date Data Source 10/11/2019 09:05:19 PM EDT [facility] Name Value Range Interpretation Code Description Data Genevieve rce(s) Supporting Document(s) WBC 9.0 10*3/uL (4.1-11.0) [facility] RBC 4.59 10*6/uL (4.00-5.40) [facility] HGB 14.1 g/dL (12.0-16.0) [facility] HCT 41.7 % (36.0-47.0) [facility] MCV 90.8 fL (80.0-95.0) [facility] MCH 30.8 pg (27.0-32.0) [facility] MCHC 33.9 g/dL (32.0-36.0) [facility] RDW 13.9 % (10.5-14.5) [facility] PLT 211 10*3/uL (150-450) [facility] MPV 9.7 fL (7.1-10.7) [facility] NEUT % 66.3 % (35.0-75.0) [facility] LYMPH % 25.1 % (16.0-52.0) [facility] MONO % 3.5 % (0.0-8.0) [facility] EOS % 4.3 % (0.0-5.0) [facility] BASO % 0.8 % (0.0-4.0) [facility] NEUT # 5.9 10*3/uL (1.8-7.7) [facility] LYMPH # 2.3 10*3/uL (1.2-4.8) [facility] MONO # 0.3 10*3/uL (0.0-0.8) [facility] Eosinophils [#/volume] in Blood by Automated count 0.4 10*3/uL (0.0-0 .5) [facility] BASO # 0.1 10*3/uL (0.0-0.2) [facility] ID Date Data Source 10/11/2019 09:24:04 PM EDT [facility] Name Value Range Interpretation Code Description Data Genevieve rce(s) Supporting Document(s) ESR 15 mm/h (0-20) [facility] ID Date Data Source 10/11/2019 09:45:48 PM EDT [facility] Name Value Range Interpretation Code Description Data Genevieve rce(s) Supporting Document(s) ALBUMIN 4.1 g/dL (3.5-4.6) [facility] ID Date Data Source 10/11/2019 09:45:48 PM EDT [facility] Name Value Range Interpretation Code Description Data Genevieve rce(s) Supporting Document(s) ALT (SGPT) 20 U/L (12-78) [facility] ID Date Data Source 10/11/2019 09:45:48 PM EDT [facility] Name Value Range Interpretation Code Description Data Genevieve rce(s) Supporting Document(s) AST (SGOT) 17 U/L (11-39) [facility] ID Date Data Source 10/11/2019 09:45:48 PM EDT [facility] [employer] Name Value Range Interpretation Code Description Data Genevieve rce(s) Supporting Document(s) CREATININE 0.81 mg/dL (0.60-1.00) [facility] GFR >60 ml/min/1.73m2 (>59) [facility] [employer] GFR ( AMER) >60 ml/min/1.73m2 (>59) [facility] [employer] [facility] GFR INTERPRETATION [facility] [employer] [facility] --NORMAL KIDNEY FUNCTION OR MILD DISEASE - GFR >OR= 60CHRONIC KIDNEY DISEASE - GFR 15 - 59RENAL FAILURE - GFR <15 Est. GFR calculation based on the MDRDstudy equation, which assumes a steadystate for creatinine. Est. GFR should notbe used for medication dosing. ID Date Data Source 10/11/2019 09:45:48 PM EDT [facility] [employer] Name Value Range Interpretation Code Description Data Genevieve rce(s) Supporting Document(s) C REACTIVE PROTEIN @ <0.3 mg/dL (0.0-0.5) [facility] ID Date Data Source 10/11/2019 09:45:48 PM EDT [facility] [employer] Name Value Range Interpretation Code Description Data Genevieve rce(s) Supporting Document(s) URIC ACID 4.0 mg/dL (2.6-6.0) [facility] ID Date Data Source [id number] 10/05/2019 11:41:00 AM EDT [facility] Name Value Range Interpretation Code Description Data Genevieve rce(s) Supporting Document(s) SARS CORONAVIRUS 2 RNA [facility] This lab was ordered by [facility] and reported by [facility]. ID Date Data Source [id number] 09/28/2019 11:49:00 AM EDT [facility] Name Value Range Interpretation Code Description Data Genevieve rce(s) Supporting Document(s) SARS CORONAVIRUS 2 RNA [facility] This lab was ordered by [facility] and reported by [facility]. ID Date Data Source [id number] 09/21/2019 09:07:01 AM EDT [facility] Measurements & CalculationsHeight: 66 inches (5 ft. 6 in.) 167.64 cm Weight: 182 pounds 8 oz. 82.95 kg Body Mass Index (BMI): 29.56BMI Interpretation: OverweightBody Surface Area (BSA): 1.93Weight Management Education Done (Nutrition/Physical Activity)Vital SignsTemperature: 98.1F tympanic Pulse Rate: 78 beats/minuteRespiratory Rate: 18 respirations/minuteBlood Pressure: 118/82 right arm sitting automaticO2 Saturation: 97% room airVital Signs performed by: Dena Welch LPN, September 21, 2019 9:18 AMVital Signs performed by: Robson BENJAMIN, September 21, 2019 9:24 AMInitial Intake Information From: patientRoom #: 2Infectious Disease / Travel ScreeningRecent travel for you or any close contacts? NoHave you had any close contact with anyone diagnosed with or under investigation for COVID-19 (coronavirus)? NoFever? NoRespiratory symptoms: cough, cold, congestion, shortness of breath, difficulty breathing? NoLoss of smell? NoLoss of taste? NoSmoking, Tobacco, Vaping or Smoke Exposure StatusSmoke Status: former smokerTobacco Use: NoDo you vape? NoMenstrual HistoryLast Menstrual Period (LMP): 09/06/2019Any possibility of ? NoHealthcare HistorySince your last office visit...Have you been admitted to the hospital? NoHave you been to an emergency room (ER) or urgent care clinic? NoHave you seen another healthcare provider? Yes - ortho groupHave you seen a dentist? Yes - [facility]Intake performed by: Dena Welch LPN, September 21, 2019 9:11 AMRate Your HealthIn general, would you say your health is? GoodPain AssessmentAre you currently having any pain which... You would like your provider to address? Yes Affects your activity level? NoDepression Screening - PHQ-2Over the last two weeks, have you... Had little interest or pleasure in doing things? Not at all Been feeling down, depressed, or hopeless? Not at all PHQ-2 Score: 0Anxiety Screening - THANIA-2Over the last two weeks, have you been... Feeling nervous, anxious, or on edge? Not at all Unable to stop or control worrying? Not at all THANIA-2 Score: 0Pain AssessmentPain ScaleNumeric Rating Scale: 5 / 10Location: right kneeDuration: yearsCharacter/Quality: achingIs the pain radiating? NoPRAPARE Sociodemographic Characteristics Race: White Ethnicity: Not or Preferred Language: EnglishFamily and Home Address: [address] [place] [address] What is your housing situation today? I have housing Are you worried about losing your housing? NoMoney and Resources What is the highest level of school that you have finished? high school graduate Employed? 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 PT Insurance: Managed Care - [facility] Community PlanIn the past year, have you or any family members you live with been unable to get any of the following when it was really needed? Denies Insecurity: food, utilities, clothing, early childhood director, phone, legal services, otherIn the past year, have you had trouble affording costs associated with health insurance (such as deductibles, co-payments, etc.)? NoSocial and Emotional Health How often do you see or talk to people that you care about and feel close to? More than 5 times a week How stressed are you? SomewhatAdditional Optional Domains In the past 3 months, have you spent more than 2 nights in a row in a mcc, alf, nursing home center or juvenile correctional facility? No Has lack of transportation kept you from medical appointments or from getting your medications? NoIn the past year, have you had trouble getting any of the following when it was really needed (check all that apply)?noneIn the past year, have you had trouble paying the costs associated with health care or medicine (such as co-payments, costs for services, prices of medicines)? NoHow confident are you that you can control and manage most of your health problems? Somewhat confident Are you a refugee? No (Country of origin: [place]) Do you feel physically and emotionally safe where you live? Yes In the past year, have you been afraid of a partner, ex-partner? NoScreening, Brief Intervention, & Referral to Treatment (SBIRT)Pre-Screening Questions How many times have you have 4 or more drinks in a day? 0How many times have you used an illegal drug or used a prescription medication for a non-medical reason? 0Performed by: Dena Welch LPN, September 21, 2019 9:13 AMPatient History Medical History:AsthmaSeasonal allergiesTB- treated in pastpossible Sjogren's 08/2019Surgical History:elbow surgeryFamily History:Diabetes (Father)Soc ial/Personal History: Chief Complaintannual examHistory of Present Illness (HPI)34 yo female here for annual PE.Pt states no concerns at this time. Last tetanus booster was at age 27. Pt states she needs refill on albuterol inhaler for asthma. Has been taking Liudmila OTC with significant improvement of her allergy symptoms. HPI performed by: Robson BENJAMIN, September 21, 2019 9:26 AMTransitions of Care InboundProblem ReviewProblem List was reviewed and/or updated during this visit.Medication Reconciliation & ReviewMedication List was reviewed and/or updated during this visit, including review of any [id number] medications, herbal therapies, and/or supplements.Allergy ReviewAllergy List was reviewed and/or updated during this visit.Adult Preventive CareProvider Calculated and Reviewed all Clinical Protocols for patient today. Labs/Meds/Other Counseling-Nutrition and Physical Activity:BMI Interpretation: Overweight (09/21/2019) Counseling: Done (09/21/2019) Physical Activity: Done (09/21/2019)Review of Systems General: Denies loss of appetite, chills, dizziness, fatigue, fever, headache, feeling ill, sweats. Eyes: Denies blurring of vision, double vision. Ears/Nose/Throat: Denies earache, decreased hearing, nasal congestion, sore throat, difficulty swallowing, tooth pain, swollen glands. Cardiovascular: Denies chest pain, palpitations, feeling faint, peripheral edema. Respiratory: Denies cough, difficulty breathing, shortness of breath, wheezing. Gastrointestinal: Denies nausea, vomiting, diarrhea, constipation, pain or discomfort. Genitourinary: Denies pain with urination, burning with urination, blood in urine, pelvic pain. Musculoskeletal: Complains of joint pain. follows with ortho and pending referral from ortho to [facility] in [place] for possible sjogren'sSkin: Denies rash, suspicious lesions. Neurologic: Denies weakness, numbness/tingling, feeling faint. Psychiatric: Denies depression, anxiety. Physical ExamGeneral Appearance: well nourished, well hydrated, no acute distressEyes, External: conjunctivae and lids normal, EOMIExternal Ears: normal, no lesions or deformitiesHearing: grossly intactOtoscopy: canals clear, tympanic membranes int act, no fluid, light reflex intact bilaterallyExternal Nose: normal, no lesions or deformitiesNasal: mucosa, septum, and turbinates normal, nares patentLips/Teeth/Gums: normal dentition, no gingival inflammation, no labial lesionsPharynx: tongue normal, posterior pharynx without erythema or exudate, no thrush/aphthous ulcerNeck: supple, no masses, trachea midline, full range of motion of neckThyroid: no nodules, masses, tenderness, or enlargementRespiratory, Auscultation: clear to auscultation bilaterally; no rales, rhonchi, or wheezesRespiratory, Effort: no intercostal retractions or use of accessory musclesCardiovascular, Auscultation: S1, S2 audible; no murmur, rub, or gallop; RRRPeripheral Circulation: no clubbing, cyanosis, edema, or varicositiesAbdomen: soft, non-tender, no masses, bowel sounds normalGait & Station: normalSkin, Inspection: no rashes, lesions, or ulcerationsOrientation: oriented to time, place, and personMood & Affect: no depression, anxiety, or agitationJudgment & Insight: intactCare Management Plan Transitions of CareInboundRate Your HealthIn general, would you say your health is? GoodAssessment & Plan Problems:Added: Encounter for general adult medical examination without abnormal findings (TWZ89-V58.00) Assessment: Instructions: Recommend annual medical appointments. Recommend routine dental and vision care. Recommend influenza vaccines annually and tetanus boosters every 10 years. Due for pap, scheduled in the near future.Mild intermittent asthma, uncomplicated (XJP71-H77.20) Assessment: Instructions: Continue with antihistamine daily and albuterol inhaler as needed. Call with any concerns or worsening symptoms.Other seasonal allergic rhinitis (KKO25-H10.2) Assessment: Instructions: As above.Anti-nuclear factor positive (ICD-795.79) (SXA84-Y20.8): possible Sjogren's Assessment: Instructions: Continue per orthopedics. Pending referral to arthritis specialist in [place].Family history of diabetes mellitus (ICD-V18.0) (OFF02-P11.3) Assessment: Instructions: Fasting labs ordered to screen sugar.Changed:From: Dx of BMI 28.0- 28.9 (ICD-V85.24) (GKS99-X97.28) To: Body Mass Index 29.0-29.9, adult (ICD- V85.25) (ZME19-P49.29)Assessed:Overweight (ICD-278.02) (EDB45-N03.3) Assessment: Instructions: Fasting labs have been ordered for you today, please complete these at the facility of your choice. When labs are drawn, please ensure that you have had nothing to eat or drink for 8-10 hours prior to the blood drawn. Water or black coffee is OK to have before the blood draw.Body Mass Index 29.0-29.9, adult (ICD-V85.25) (KMC97-Z93.29) Assessment: Instructions: As above.Patient Instructions/Care Plan: Encounter for general adult medical examination without abnormal findings: Recommend annual medical appointments. Recommend routine dental and vision care. Recommend influenza vaccines annually and tetanus boosters every 10 years. Due for pap, scheduled in the near future.Mild intermittent asthma- uncomplicated: Continue with antihistamine daily and albuterol inhaler as needed. Call with any concerns or worsening symptoms.Other seasonal allergic rhinitis: As above.Anti-nuclear factor positive: Continue per orthopedics. Pending referral to arthritis specialist in [place].Overweight: Fasting labs have been ordered for you today, please complete these at the facility of your choice. When labs are drawn, pl ease ensure that you have had nothing to eat or drink for 8-10 hours prior to the blood drawn. Water or black coffee is OK to have before the blood draw.Family history of diabetes mellitus: Fasting labs ordered to screen sugar.Body Mass Index 29.0-29.9- adult: As above. Plan developed in collaboration with patient and/or familyMedications:ALBUTEROL SULFATE HFA 108 (90 BASE) MCG/ACT INHALATION AEROSOL SOLUTIONMedication Changes:New Prescription:ALBUTEROL SULFATE HFA 108 (90 BASE) MCG/ACT INHALATION AEROSOL SOLUTION-2 puffs oral inhalation q 4 hrs prn wheezing or shortness of breath Qty: 1[Inhaler] Refills: 5 Method: ElectronicAllergies:* SEASONAL (Moderate)Orders:Basic Metabolic Panel [[id number], [id number]] Preventive, Est, (18- 39) [[id number]] Follow-Up Return to clinic: in 1 year for preventive care visitAdditional Follow-Up: annual PEClinical Visit Summary CompletedMedications:ALBUTEROL SULFATE HFA 108 (90 BASE) MCG/ACT INHALATION AEROSOL SOLUTION (ALBUTEROL SULFATE) 2 puffs oral inhalation q 4 hrs prn wheezing or shortness of breath #1[Inhaler] x 5 Entered and Authorized by: Robson BENJAMIN Method used: Electronically to [facility] (retail) [address] [place] [address] Note to Pharmacy: Route: INH; RxID: [id number] signed by Robson BENJAMIN on 09/27/2019 at 10:38 AM Name Value Range Interpretation Code Description Data Genevieve rce(s) Supporting Document(s) ID Date Data Source [id number] 09/21/2019 06:00:00 AM EDT [facility] Name Value Range Interpretation Code Description Data Genevieve rce(s) Supporting Document(s) SARS CORONAVIRUS 2 RNA [facility] This lab was ordered by [facility] and reported by [facility]. ID Date Data Source [id number] 09/14/2019 02:07:00 PM EDT [facility] Name Value Range Interpretation Code Description Data Genevieve rce(s) Supporting Document(s) SARS CORONAVIRUS 2 RNA [facility] This lab was ordered by [facility] and reported by [facility]. ID Date Data Source [id number] 09/08/2019 03:22:00 PM EDT [facility] Name Value Range Interpretation Code Description Data Genevieve rce(s) Supporting Document(s) SARS CORONAVIRUS 2 RNA [facility] This lab was ordered by [facility] and reported by [facility]. ID Date Data Source [id number] 08/30/2019 03:35:00 PM EDT [facility] Name Value Range Interpretation Code Description Data Genevieve rce(s) Supporting Document(s) SARS CORONAVIRUS 2 RNA [facility] This lab was ordered by [facility] and reported by [facility]. ID Date Data Source [id number] 08/17/2019 10:58:00 AM EDT [facility] Name Value Range Interpretation Code Description Data Genevieve rce(s) Supporting Document(s) C reactive protein [Mass/volume] in Serum or Plasma by High sensitivity method Laboratory test result 0.00-0.30 [facility] ([facility]) ID Date Data Source [id number] 08/17/2019 10:58:00 AM EDT [facility]) Name Value Range Interpretation Code Description Data Genevieve rce(s) Supporting Document(s) Lyme Disease IgM Ab Quantitati Laboratory test result 0.00-0.79 [facility] ([facility]) <content>Negative <0.80</content >
<content>Equivocal 0.80 - 1.19</content>
<content>Positive >1.19</content>
<content>.</content>
<content>IgM levels may peak at 3-6 weeks post infection, then</content>
<content>gradually decline.</content>
<content></content> Lyme Disease IgG/IgM Antibodie Laboratory test result 0.00-0.90 [facility] ([facility]) <content>Negative <0.91</content >
<content>Equivocal 0.91 - 1.09</content>
<content>Positive >1.09</content>
<content></content> ID Date Data Source [id number] 08/17/2019 10:58:[address] [facility] ([facility]) Name Value Range Interpretation Code Description Data Genevieve rce(s) Supporting Document(s) Erythrocyte sedimentation rate by Westergren method 12 mm/hr 0-20 [facility] ([facility]) HLA-B27 related Ag [Presence] Laboratory test result [facility] ([facility]) HLA-B*27 Negative B27 allele interpretation for all loci based on IMGT/HLA database version 3.38 This test was developed and its performance characteristics determined by [facility]. It has not been cleared or approved by the Food and Drug Administration. [facility] CLIA ID Number [id number] . This test was performed using PCR (Polymerase Chain Reaction)/SSOP (Sequence Specific Oligonucleotide Probes) technique. SBT (Sequence Based Typing) and/or SSP (Sequence Specific Primers) may be used as supplemental methods when necessary. Please contact [facility] Customer Service at if you have any questions. . Director of [facility] Laboratory Dr Bob Segundo, PhD ID Date Data Source [id number] 08/17/2019 10:58:[address] [facility] ([facility]) Name Value Range Interpretation Code Description Data Genevieve rce(s) Supporting Document(s) Antinuclear Antibodies Direct Laboratory test result Abnormal (applies to non- numeric results) [facility]) Anti Double Strand-Dna AB Laboratory test result 0-9 [facility] ([facility]) <content>Negative <5</content>
<content>Equivocal 5 - 9</content>
<content>Positive >9</content>
<content></content> SOFTWARE VALIDATION TECHNICIAN Antibodies Laboratory test result 0.0-0.9 [facility] ([facility]) Daly Antibodies Laboratory test result 0.0-0.9 [facility] ([facility]) Sjogren's Anti SS-B 1.7 AI 0.0-0.9 [facility] (No [facility]) Sjogren's Anti SS-A Laboratory test result 0.0-0.9 [facility] ([facility]) Perez Comment Laboratory test result TRUONG Bah ([facility]) . Autoantibody Disease Association Condition Frequency -------- --------- Antinuclear Antibody, SLE, mixed connective Direct (PEREZ-D) tissue diseases -------- --------- dsDNA SLE 40 - 60% -------- --------- Chromatin Drug induced SLE 90% SLE 48 - 97% -------- --------- SSA (Ro) SLE 25 - 35% Sjogren's Syndrome 40 - 70% Lupus 100% -------- --------- SSB (La) SLE 10% Sjogren's Syndrome 30% ------- --------- Sm (anti-Daly) SLE 15 - 30% ------- --------- SOFTWARE VALIDATION TECHNICIAN Mixed Connective Tissue Disease 95% (U1 nRNP, SLE 30 - 50% anti-ribonucleoprotein) Polymyositis and/or Dermatomyositis 20% -------- --------- Scl-70 (antiDNA Scleroderma (diffuse) 20 - 35% topoisomerase) Crest 13% -------- --------- Radhika-1 Polymyositis and/or Dermatomyositis 20 - 40% -------- --------- Centromere B Scleroderma - Crest variant 80% Performed at: [facility] [id number] Hydraulic Press Operator: Renate Ya MD, Phone: [phone] Performed at: [facility] [id number] Hydraulic Press Operator: Bob Segundo PhD, Phone: [phone] ID Date Data Source [id number] 08/17/2019 10:58:00 AM EDT [facility] ([facility] ) Name Value Range Interpretation Code Description Data Genevieve rce(s) Supporting Document(s) Rheumatoid factor [Units/volume] in Serum or Plasma Laboratory test result [facility] ([facility]) ID Date Data Source [id number] 08/17/2019 10:58:00 AM EDT [facility] ([facility] ) Name Value Range Interpretation Code Description Data Genevieve rce(s) Supporting Document(s) Red Blood Count 4.76 10 4.00-5.40 [facility] ([facility]) White Blood Count 7.3 10 4.0-10.0 [facility] ([facility]) Hematocrit 43.5 % 36.0-47.0 [facility] ([facility]) Hemoglobin 14.6 g/dL 12.0-15.5 [facility] ([facility]) Mean Corpuscular Volume 91.4 fl 80.0-96.0 M [facility] ([facility]) Mean Corpuscular HGB Conc 33.6 g/dL 32.0-36.5 [facility] ([facility]) Mean Corpuscular Hemoglobin 30.7 pg 27.0-33.0 [facility] ([facility]) Platelet Count, Automated 231 10 150-450 [facility] ([facility]) Red Cell Distribution Width 12.9 % 11.5-14.5 [facility] ([facility]) Neutrophils % 59.7 % 36.0-66.0 [facility] ([facility]) Cochran % 4.0 % 0.0-5.0 [facility] ([facility] Lymph % 30.8 % 24.0-44.0 [facility] ([facility]) Baso % 0.7 % 0.0-1.0 [facility] ([facility]) Eos % 4.5 % 0.0-3.0 [facility] ([facility]) Neutrophils # 4.4 10 1.5-8.5 [facility] Nucleated Red Blood Cell % 0.0 % 0-0 [facility] ([facility]) Immature Granulocyte % 0.3 % 0-3.0 [facility] ([facility]) Cochran # 0.3 10 0.0-0.8 [facility] ([facility]) Lymph # 2.2 10 1.5-5.0 [facility] ([facility]) Eos # 0.3 10 0.0-0.5 [facility] ([facility]) Baso # 0.1 10 0.0-0.2 [facility] ([facility]) ID Date Data Source [id number] 08/03/2019 09:45:45 AM EDT [facility] Measurements & CalculationsHeight: 66 inches (5 ft. 6 in.) 167.64 cm Weight: 181 pounds 4 oz. 82.39 kg Body Mass Index (BMI): 29.36BMI Interpretation: OverweightBody Surface Area (BSA): 1.92Vital SignsTemperature: 97.6F tympanic Pulse Rate: 64 beats/minuteRespiratory Rate: 18 respirations/minuteBlood Pressure: 11 9/80 left arm sitting automaticO2 Saturation: 98% room airVital Signs performed by: Dena Welch LPN, August 03, 2019 9:57 AMVital Signs performed by: Robson BENJAMIN, August 03, 2019 10:01 AMInitial Intake Information from: patientRoom #: 1Smoking, Tobacco, Vaping or Smoke Exposure StatusSmoke Status: former smokerTobacco Use: NoDo you vape? NoPassive Smoke Exposure: YesPassive Smoke Exposure comments: outsideMenstrual HistoryLast Menstrual Period (LMP): 07/03/2019Any possibility of ? NoHealthcare HistorySince your last office visit...Have you been admitted to the hospital? NoHave you been to an emergency room (ER) or urgent care clinic? NoHave you seen another healthcare provider? NoHave you seen a dentist? Yes - [facility] dentalRate Your HealthIn general, would you say your health is? GoodPain AssessmentAre you currently having any pain which... You would like your provider to address? Yes Affects your activity level? YesDepression Screening - PHQ-2Over the last two weeks, have you... Had little interest or pleasure in doing things? Not at all Been feeling down, depressed, or hopeless? Several days PHQ-2 Score: 1Anxiety Screening - THANIA-2Over the last two weeks, have you been... Feeling nervous, anxious, or on edge? Nearly every day Unable to stop or control worrying? Not at all THANIA-2 Score: 3Infectious Disease / Travel ScreeningRecent travel for you or any close contacts? NoHave you had any close contact with anyone diagnosed with or under investigation for COVID-19 (coronavirus)? NoHave you had any of the following symptoms recently? Fever? NoRespiratory symptoms: cough, cold, congestion, shortness of breath, difficulty breathing? NoGeneralized Anxiety Disorder 7-Item Screening (THANIA-7)Answer Guide:0 = Not at all1 = Several days2 = Over half the days3 = Nearly every dayOver the last 2 weeks, how often have you been bothered by the following problems?Feeling nervous, anxious, or on edge: 3Not being able to stop or control worryinWorrying too much about different things: 1Trouble relaxinBeing so restless that it's hard to sit still: 0Becoming easily annoyed or irritable: 0Feeling afraid as if something awful might happen: 3Answer Guide:0 = Not difficult at all1 = Somewhat difficult2 = Very difficult3 = Extremely difficultHow difficult have these made it for you to do your work, take care of things at home, or get along with other people? 0GAD-7 Screening Results THANIA-2 Score: 3GAD-7 Score: 10Functional Impairment: Not difficult at allRecommendation: Moderate anxietyPHQ-9 1. Over the last 2 weeks, patient reports the following frequency of symptoms: a. Little interest or pleasure in doing things -Not at all b. Feeling down, depressed, or hopeless -Several days c. Trouble falling asleep, staying asleep, or sleeping too much -Nearly every day d. Feeling tired or having little energy -Nearly every day e. Poor appetite or overeating -More than half the days f. Feeling bad about yourself, feeling that you are a failure, or feeling that you have let yourself or your family down -Several days g. Trouble concentrating on things such as reading the newspaper or watching television -Several days h. Moving or speaking so slowly that other people could have noticed. Or being so fidgety or restless that you have been moving around a lot more than usual -Not at all i. Thinking that you would be better off or that you want to hurt yourself in some way -Not at all2. If you checked off any problems, how difficult have these problems made it for you to do your work, take care of things at home, or get along with o ther people? -Somewhat DifficultToday's PHQ-9 Results Score: 11 Severity: Moderate Diagnosis Recommendation: No recommendation Functional Impairment: Somewhat DifficultToday's Follow-Up Action Depression follow-up done.Pain AssessmentPain ScaleNumeric Rating Scale: 6 / 10Location: maisha kneesDuration: yearsCharacter/Quality: throbbing. shooting when going uptairsIs the pain radiating? YesTo what body part(s) is the pain radiating? sometimes down to feetScreening, Brief Intervention, & Referral to Treatment (SBIRT)Pre- Screening Questions How many times have you have 4 or more drinks in a day? 0How many times have you used an illegal drug or used a prescription medication for a non-medical reason? 0Performed by: Dena Welch LPN, August 03, 2019 9:52 AMPatient History Medical History:AsthmaTB- treated in pastSurgical History:elbow surgFamily History:Diabetes (Father)Social/Personal History: Chief Complaintbil knee pain over the last yearHistory of Present Illness (HPI)34 y/o female here for bilateral knee pain over the last year.Pt states it is a throbbing pain but has a shooting pain along the top of the knee cap when climbing stairs and after a full day of working, right worse than left, ongoing for the last year. Pt states she has used icy hot, heat/ice, ibuprofen in the past and it helps but only for a short period. States the pain is constant but waxes and wanes, is never gone. Denies swelling, injury, prior knee issues. Admits to arthritis in the family. Pt is a [employer] and is active daily both at work and at home with her children, does not have a sedentary lifestyle. HPI performed by: Robson BENJAMIN, August 03, 2019 10:04 AMTransitions of Care InboundProblem ReviewProblem List was reviewed and/or updated during this visit.Medication Reconciliation & ReviewMedication List was reviewed and/or updated during this visit, including review of any oypc-emx-iaqvcrs medications, herbal therapies, and/or supplements. Patient has no known medications.All ergy ReviewAllergy List was reviewed and/or updated during this visit. Patient has no known allergies.Provider Calculated and Reviewed all Clinical Protocols for patient today. Cancer Screening Pap Smear/HPV TestingReviewed: Previous Comments: [facility], 06/01 last PAP (11/18/2017)Today's Comments: [facility] HealthReview of Systems General: Denies chills, dizziness, fatigue, fever, headache, feeling ill. Musculoskeletal: Complains of see HPI, joint pain, muscle aches, stiffness. Denies joint swelling, recent injury. Skin: Denies rash, redness, itching, suspicious lesions. Neurologic: Denies weakness, numbness/tingling. Physical ExamGeneral Appearance: well nourished, well hydrated, no acute distressEyes, External: conjunctivae and lids normal, EOMIRespiratory, Auscultation: clear to auscultation bilaterally; no rales, rhonchi, or wheezesCardiovascular, Auscultation: S1, S2 audible; no murmur, rub, or gallop; RRRPeripheral Circulation: no clubbing, cyanosis, edema, or varicositiesGait & Station: normalLower Extremity, Right: normal ROM and strength, no joint enlargement, pain to palpation proximal to patella, positive patellar grind b/l, crepitus with flexion, no laxity or instability of the kneeLower Extremity, Left: normal ROM and strength, no joint enlargement, pain to palpation proximal to patella, positive patellar grind b/l, crepitus with flexion, no laxity or instability of the kneeSkin, Inspection: no rashes, lesions, or ulcerationsOrientation: oriented to time, place, and personJudgment & Insight: intactCare Management Plan Transitions of CareInboundRate Your HealthIn general, would you say your health is? GoodAssessment & Plan Problems:Added: Pain in right knee (ICD-719.46) ([id number]-Z89.561) Assessment: Instructions: Knee xrays, given order today to take elsewhere for views. Will also refer to ortho for ongoing knee pain. Discussed the utility of physical therapy, which may provide some relief. Continue ibuprofen, heat/ice alternati ng, elevate the legs and rest after work or prolonged activity. May try over the counter supportive knee brace in the meantime.Pain in left knee (ICD-719.46) (ZMQ08-S31.562) Assessment: Instructions: As above.Patient Instructions/Care Plan: Pain in right knee: Knee xrays, given order today to take elsewhere for views. Will also refer to ortho for ongoing knee pain. Discussed the utility of physical therapy, which may provide some relief. Continue ibuprofen, heat/ice alternating, elevate the legs and rest after work or prolonged activity. May try over the counter supportive knee brace in the meantime.Pain in left knee: As above. Plan developed in collaboration with patient and/or familyMedication Changes:Removed:SERTRALINE HCL 50 MG ORAL TABLET-1 tab by mouth every dayAllergies:No Known Allergies (updated 08/03/2019) Orders:X-Ray - Knee, complete, 4 or more views [CPT-32264] X-Ray - Knee, complete, 4 or more views [CPT-31297] Adult - Ofc Vst, EST, Level III [CPT- 21137] Orthopaedics Consult [CPT-89140] Follow-Up Return to clinic: in 6 weeks for preventive care visitAdditional Follow-Up: annual PEClinical Visit Summary Completed Name Value Range Interpretation Code Description Data Genevieve rce(s) Supporting Document(s) Procedure Social History Code Duration Value Status Description Data Source(s ) Smoking 01/27/2020 12:00:00 AM EDT Unknown if ever smoked comp leted Unknown if ever smoked [facility] ([facility]) Smoking 01/12/2020 12:00:00 AM EDT Unknown if ever smoked comp leted Unknown if ever smoked [facility] ([facility]) Caffeine Use Details 12/13/2019 12:00:00 AM EDT completed [facility] ([facility]) 12/13/2019 12:00:00 AM EDT Ex-cigarette smoker completed Ex-cigarette smoker [facility] ([facility]) Smoking 12/13/2019 12:00:00 AM EDT Former smoker completed Former smoker Lela ([facility]) Vital Signs ID Date Data Source UNK Name Value Range Interpretation Code Description Data Source(s) Systolic blood pressure 153 mm[Hg] 153 mm[Hg] [facility] Body height 66 [in_i] 66 [in_i] [facility] ([facility]) Diastolic blood pressure 93 mm[Hg] 93 mm[Hg] [facility] ([facility]) Body weight 2934.4 [oz_av] 2934.4 [oz_av] ATHEN A ([facility]) Systolic blood pressure 127 mm[Hg] 127 mm[Hg] A THENA ([facility]) Body mass index (BMI) [Ratio] 29.6 kg/m2 29.6 k g/m2 [facility] ([facility]) Body height 66 [in_i] 66 [in_i] [facility] ([facility]) Diastolic blood pressure 85 mm[Hg] 85 mm[Hg] [facility] ([facility]) Body weight 2934.4 [oz_av] 2934.4 [oz_av] ATHEN A ([facility]) Systolic blood pressure 127 mm[Hg] 127 mm[Hg] [facility] Body mass index (BMI) [Ratio] 29.6 kg/m2 29.6 k g/m2 [facility] ([facility]) Body height 66 [in_i] 66 [in_i] [facility] ([facility]) Diastolic blood pressure 85 mm[Hg] 85 mm[Hg] [facility] ([facility]) Body mass index (BMI) [Ratio] 30.38 kg/m2 Overweight 30.38 kg/m2 [facility] ([facility]) Diastolic blood pressure 82 mm[Hg] 82 mm[Hg] [facility] ([facility]) Systolic blood pressure 120 mm[Hg] 120 mm[Hg] N [facility] ([facility]) Body weight 83.461 kg 83.461 kg [facility] ([facility]) Body height 165.74 cm 165.74 cm [facility] ([facility]) Body weight 2930.08 [oz_av] 2930.08 [oz_av] ATH ANUSHA ([facility]) Systolic blood pressure 116 mm[Hg] 116 mm[Hg] A [facility] ([facility]) Body mass index (BMI) [Ratio] 29.66 kg/m2 29.66 kg/m2 [facility] ([facility]) Body height 66 [in_i] 66 [in_i] [facility] ([facility]) Diastolic blood pressure 81 mm[Hg] 81 mm[Hg] [facility] ([facility]) Body weight 2930.08 [oz_av] 2930.08 [oz_av] ATH ANUSHA ([facility]) Systolic blood pressure 116 mm[Hg] 116 mm[Hg] A [facility] ([facility]) Body height 66 [in_i] 66 [in_i] [facility] ([facility]) Diastolic blood pressure 81 mm[Hg] 81 mm[Hg] [facility] ([facility]) Body mass index (BMI) [Ratio] 30.22 kg/m2 Overweight 30.22 kg/m2 [facility] ([facility]) Diastolic blood pressure 60 mm[Hg] 60 mm[Hg] [facility] ([facility]) Systolic blood pressure 100 mm[Hg] 100 mm[Hg] N [facility] ([facility]) Body weight 83.007 kg 83.007 kg [facility] ([facility]) Body height 165.74 cm 165.74 cm [facility] Body weight 2920 [oz_av] 2920 [oz_av] MI[facility] ([facility]) Systolic blood pressure 118 mm[Hg] 118 mm[Hg] A [facility] ([facility]) Body mass index (BMI) [Ratio] 29.56 kg/m2 29.56 kg/m2 [facility] ([facility]) Body height 66 [in_i] 66 [in_i] [facility] ([facility]) Diastolic blood pressure 82 mm[Hg] 82 mm[Hg] [facility] ([facility]) Body weight 2920 [oz_av] 2920 [oz_av] [facility] ([facility]) Systolic blood pressure 118 mm[Hg] 118 mm[Hg] A [facility] ([facility]) Body height 66 [in_i] 66 [in_i] [facility] ([facility]) Diastolic blood pressure 82 mm[Hg] 82 mm[Hg] [facility] ([facility]) Body mass index (BMI) [Ratio] 29.4 kg/m2 29.4 k g/m2 [facility] ([facility]) Body weight 179.12 [lb_av] 179.12 [lb_av] MEDEN T ([facility]) Body height 65.5 [in_i] 65.5 [in_i] [facility] ([facility]) 5'5.50" Body temperature 96.5 [degF] 96.5 [degF] [facility] ([facility] ) Body weight 2900 [oz_av] 2900 [oz_av] [facility] ([facility]) Systolic blood pressure 119 mm[Hg] 119 mm[Hg] [facility] Body mass index (BMI) [Ratio] 29.36 kg/m2 29.36 kg/m2 [facility] ([facility]) Body height 66 [in_i] 66 [in_i] [facility] ([facility]) Diastolic blood pressure 80 mm[Hg] 80 mm[Hg] [facility] ([facility]) Body weight 2900 [oz_av] 2900 [oz_av] [facility] ([facility]) Systolic blood pressure 119 mm[Hg] 119 mm[Hg] Bryanna CHIN ([facility]) Body height 66 [in_i] 66 [in_i] [facility] ([facility]) Diastolic blood pressure 80 mm[Hg] 80 mm[Hg] [facility] ([facility]) Patient Treatment Plan of Care Planned Activity Planned Date Details Description Data Source (s) Prednisone 5 MG Oral Tablet 10/11/2019 12:00:00 AM EDT [facility] ([facility]) Prednisone 5 MG Oral Tablet [facility] ([facility]) Hydrocortisone 10 MG/ML / Neomycin 3.5 M G/ML / Polymyxin B 90414 UNT/ML Otic Suspension [facility] ([facility]) Hydroxyzine Hydrochloride 25 MG Oral Tablet [facility] ([facility]) Cefuroxime 500 MG Oral Tablet [facility] ([facility]) Prednisone 5 MG Oral Tablet [facility] ([facility]) Hydrocortisone 10 MG/ML / Neomycin 3.5 M G/ML / Polymyxin B 95120 UNT/ML Otic Suspension [facility] ([facility]) Cefuroxime 500 MG Oral Tablet [facility] ([facility])
[2020-06-01 11:40] LABS: BASO % 0.4 % (0.0-1.0); EOS # 0.4 10^3/uL (0.0-0.5); EOS % 4.9 % (0.0-3.0); HEMOGLOBIN 13.9 g/dl (12.0-15.5); LYMPH # 1.5 10^3/uL (1.5-5.0); LYMPH % 19.3 % (24.0-44.0); MEAN CORPUSCULAR HEMOGLOBIN 30.3 pg (27.0-33.0); MEAN CORPUSCULAR HGB CONC 33.1 g/dl (32.0-36.5); MEAN CORPUSCULAR VOLUME 91.5 fl (80.0-96.0); MONO # 0.3 10^3/uL (0.0-0.8); MONO % 3.3 % (2.0-8.0); NEUTROPHILS # 5.7 10^3/uL (1.5-8.5); NEUTROPHILS % 71.8 % (36.0-66.0); PLATELET COUNT, AUTOMATED 216 10^3/uL (150-450); RED BLOOD COUNT 4.59 10^6/uL (4.00-5.40); WHITE BLOOD COUNT 7.9 10^3/uL (4.0-10.0)
--- OUTSIDE RECORDS SUMMARY | 2020-06-01 11:45 | CCD ---
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 If you continue you may have access to information: Regarding HIV / AIDS; Provided by facilities licensed or operated by the [facility] Office of Mental Health; or Provided by the [facility] Office for People With Developmental Disabilities. If such information is present, then the following [facility] mandated warning applies: This information has [...] law may result in a fine or chcf sentence or both. A general authorization for the release of medical or other information is NOT sufficient authorization for further disc losure. Allergies and Adverse Reactions Type Description Substance Reaction Status Data Source(s ) Miscellaneous allergy SEASONAL SEASONAL [facility] Family History Family Member Name Family Member Gender Family Member Status Date o f Status Description Data Source(s) Unknown Female Problem (finding) 10/11/2019 12:00:00 AM EDT [facility] ([facility]) Unknown Female Problem (finding) 10/11/2019 12:00:00 AM EDT [facility] ([facility]) Encounters Encounter Providers Location Date Indications Data Source(s ) LALA Falcon: [address], [address], [place] [address], Ph. Attender: SUKHWINDER SMALLWOOD [facility] Medical 05/22/2020 12:00:00 AM CATHERINE MCKEON ([facility]) LALA Santo: [address], [place] [address], Ph. Attender: ROBSON REEVES [facility] Medical 03/06/2020 12:00:00 AM EST MIKE ([facility]) LALA Santo: [address], [place] [address], Ph. Attender: ROBSON REEVES [facility] - [facility] 03/06/2020 12:00:00 AM EST MIKE ([facility]) Psychiatric Diagnostic Evaluation (Non-Medical) Attender: [facility] 01/27/2020 12:00:00 PM EDT - 01/27/2020 12:00:00 PM EDT [facility] ([facility]) Attender: [facility] 01/27/2020 12:00:00 AM EDT [facility] ([facility]) Extended Individual Psychotherapy - 45 min Attender: [facility] 01/12/2020 09:00:00 AM EDT - 01/12/2020 09:00:00 AM EDT [facility] ([facility]) Attender: [facility] 01/12/2020 12:00:00 AM EDT [facility] ([facility]) OutpatientOFFICE/OUTPATIENT VISIT, EST Attender: Che mcginnis MD [facility] 12/13/2019 03:40:00 PM EDT - 12/13/2019 03:40:00 PM ED T Plica syndrome[facility] Plica syndrome, right knee Pain Outpatient Attender: ELIU HAYNES [facility] 06/2019 12:55:[address] [facility] Outpatient Attender: ROBSON REEVES [facility] 10/29/2019 01:38:[address] [facility] Outpatient Referrer: Che Arita MD 10/11/2019 04:09:5 9 PM EDT [facility] OutpatientOFFICE/OUTPATIENT VISIT, NEW Attender: Che mcginnis MD [facility] 10/11/2019 03:00:00 PM EDT - 10/11/2019 03:00:00 PM ED T RashPainPolyarthritisOther specified abnormal findings of blood [facility]) Rash Pain Polyarthritis Other specified abnormal findings of blo od chemistry Outpatient Attender: ROBSON BEAVERS [facility] 09/27/2019 10:40:[address] [facility] Outpatient Attender: ELIU HAYNES PAYTONJERONIMO [facility] 09/12 10:39:[address] [facility] Outpatient Attender: ROBSON BEAVERS [facility] 09/22/2019 12:00:[address] [facility] Outpatient Attender: ROBSON BEAVERS [facility] 09/21/2019 09:38:[address] [facility] Outpatient Attender: ELIU HAYNES ERNST [facility] 05/2019 02:15:[address] [facility] Outpatient Attender: Alvino Schultz MD Physical Therapy 09/09/2019 0 2:45:00 PM EDT [facility] ([facility]) [facility]patient [facility]: [facility]/13 10:34:[address] [facility] OFFICE OUTPATIENT NEW 30 MINUTES Attender: Alvino Schultz MD Physic al Therapy 08/16/2019 10:45:00 AM EDT [facility] ([facility]) Outpatient [facility]: [facility] 07/14 09:52:[address] [facility] 10:12:[address] [facility] Out[facility] Attender: [facility] 08/03/2019 10:06:[address] [facility] 08/03/2019 10:03:[address] [facility] 08/03/2019 09:53:[address] [facility] Att[facility]: [facility] 07/30/2019 10:39:00 AM ED [facility] Outpatient Attender: [facility] 07/02/2019 12:47:00 PM ED [facility] Outpatient Attender: [facility] 07/02/2019 12:46:[address] [facility] Medications Medication Brand Name Start Date [...] mpleted cefuroxime 500 MG Oral Tablet MIKE ([facility]) Prednisone 5 MG Oral Tablet prednisone 5 [...] completed prednisone 5 MG Oral Tablet [facility]KE ([facility]) Hydroxyzine Hydrochloride 25 MG Oral Tab let hydroxyzine HCl 25 mg tablet TAKE ONE TABLET BY MOUTH AT BEDTIME hydroxyzine HCl 25 mg tablet TAKE ONE TA BLET BY MOUTH AT BEDTIME completed hydroxyzine hydrochloride 25 MG Oral Tablet [facility]KE ([facility]) Cefuroxime 500 MG Oral Tablet cefuroxime axetil 500 mg tablet TAKE 1 TABLET BY MOUTH EVERY 12 HOURS FOR 10 DAYS cefuroxime axetil 500 mg tablet TAKE 1 T ABLET BY MOUTH EVERY 12 HOURS FOR 10 DAYS co mpleted cefuroxime 500 MG Oral Tablet MIKE ([facility]) Hydrocortisone 10 MG/ML / Neomycin 3.5 M G/ML / Polymyxin B 29157 UNT/ML Otic Suspension mksrbgqk-dqejcizza-fiptlnhtd 3.5 mg-10,000 unit/mL-1 % ear drops,susp shvgdszj-rpurkixnz-mkdwvnehs 3.5 mg-10,000 unit/mL-1 % ear drops,susp completed hydrocortisone 1 0 MG/ML / neomycin 3.5 MG/ML / polymyxin B 86234 UNT/ML Otic Suspension [facility] ([facility]) Prednisone 5 MG Oral Tablet prednisone 5 [...] completed prednisone 5 MG Oral Tablet [facility] ([facility]) Hydrocortisone 10 MG/ML / Neomycin 3.5 M G/ML / Polymyxin B 89601 UNT/ML Otic Suspension wotaytsb-zpzfkzmgs-kogqunaye 3.5 mg-10,000 unit/mL-1 % ear drops,susp whnlhvll-ctaazsifp-bwzxdrgyd 3.5 mg-10,000 unit/mL-1 % ear drops,susp completed hydrocortisone 1 0 MG/ML / neomycin 3.5 MG/ML / polymyxin B 91714 UNT/ML Otic Suspension [facility] ([facility]) Insurance Providers Payer name Policy type / Coverage type Policy ID Covered green party ID Covered green party's relationship to ellis Policy Ellis Plan Information [facility] MCDO [id number] SP [id number] [facility] MCDO [id number] SP [id number] Managed Care - [facility] Community Plan P [id number] S [id number] Medicaid S [id number] S [id number] Managed Care - Community Plan [facility] P [id number] S [id number] Managed Care - Community Plan [facility] P [id number] S [id number] Medicaid S [id number] S [id number] MEDICAID [id number] SP [id number] [facility](MCA[facility]) O [id number] S [id number] MEDICAID M [id number] S [id number] [employer] COMMUNITY PLAN MCDO [id number] SP [id number] [employer] [id number] SP [id number] [employer] UNAVAILABLE UNAVAILABLE [employer] [id number] SP [id number] O BLUE [id number] SP [id number] O BLUE [id number] SP [id number] [employer] P [id number] S [id number] Problems, Conditions, and Diagnoses Code Display Name Description Problem Type Effective Dates Data Source(s) F33.1 Major depressive disorder, recurrent, mo derate Major Depressive Disorder, Recurrent episode, Moderate Condition 01/27/2020 12:00:00 AM EDT [facility] ([facility]) 701.9 Skin tag Skin tag 10/29/2019 01:37:[address] [facility] left nipple Z12.39 Encounter for other screening for malign ant neoplasm of breast Encounter for other screening for malignant neoplasm of breast 0 10/29/2019 01:37:[address] [facility] V76.2 Screening for malignant neoplasms of the cervix Screening for malignant neoplasms of the cervix 10/29/2019 01:37:30 PM EDT Lyman Suad kimball [facility] Z01.419 Encounter for gynecological examination (general) (routine) without abnormal findings Encounter for gynecological examination (general) (routine) without abnormal findings 10/29/2019 01:37:30 PM EDT Lyman Noah barr [facility] 714.0 Rheumatoid arthritis of multiple joints Rheumatoid arthritis of multiple joints 10/29/2019 01:37:[address] [facility] 09/2019 [facility] [id number] Breast neoplasm screening status Breast Neoplasm Screening Status Problem 10/29/2019 12:00:00 AM EDT [facility] [place] ([facility]) 566579982 SNOMED CT Concept SNOMED CT Concept Problem 10/28 12:00:00 AM EDT [place] ([facility]) 397916053 Screening for malignant neoplasm of cerv ix Screening for Malignant Neoplasm of Cervix Problem 10/29/2019 12:00:00 AM EDT [place] ([facility]) 15586957 Hypertrophic condition of skin Hypertrophic Condition of Skin Problem 10/29/2019 12:00:00 AM EDT [place] ([facility]) 888605921 Breast neoplasm screening status Breast Neoplasm Screening Status Problem 10/29/2019 12:00:00 AM EDT [place] ([facility]) 834753518 SNOMED CT Concept SNOMED CT Concept Problem 10/28 12:00:00 AM EDT [place] ([facility]) 504564510 Screening for malignant neoplasm of cerv ix Screening for Malignant Neoplasm of Cervix Problem 10/29/2019 12:00:00 AM EDT [place] ([facility]) 00930784 Hypertrophic condition of skin Hypertrophic Condition of Skin Problem 10/29/2019 12:00:00 AM EDT [place] ([facility]) V85.25 Body Mass Index 29.0-29.9, adult Body Mass Index 29.0- 29.9, adult 09/27/2019 10:38:[address] [facility] V18.0 Family history of diabetes mellitus Family history of diabetes mellitus 09/21/2019 09:37:[address] [facility] 23074062 Other seasonal allergic rhinitis Other seasonal allerg ic rhinitis 09/21/2019 09:37:[address] [facility] 407320320 Mild intermittent asthma, uncomplicated Mild intermittent asthma, uncomplicated 09/21/2019 09:37:[address] [facility] Z00.00 Encounter for general adult medical examination without abnormal findings Encounter for general adult medical examination without abno rmal findings 09/21/2019 09:37:[address] [facility] 229716930 SNOMED CT Concept SNOMED CT Concept Problem 09/20 12:00:00 AM EDT [place] ([facility]) 790486253 Rheumatoid arthritis of multiple joints Rheumatoid Arthritis of Multiple Joints Problem 09/21/2019 12:00:00 AM EDT [place] ([facility]) 770622109 Mild intermittent asthma Mild Intermittent Asthma Prob peg 09/21/2019 12:00:00 AM EDT [facility] ([facility]) 328894768 Seasonal allergic rhinitis Seasonal Allergic Rhinitis Problem 09/21/2019 12:00:00 AM EDT [place] ([facility]) 392080427 SNOMED CT Concept SNOMED CT Concept Problem 09/20 12:00:00 AM EDT [facility] ([facility]) 724359927 Rheumatoid arthritis of multiple joints Rheumatoid Arthritis of Multiple Joints Problem 09/21/2019 12:00:00 AM EDT [place] ([facility]) 393636802 Mild intermittent asthma Mild Intermittent Asthma Prob peg 09/21/2019 12:00:00 AM EDT [place] ([facility]) 650551026 Seasonal allergic rhinitis Seasonal Allergic Rhinitis Problem 09/21/2019 12:00:00 AM EDT [place] ([facility]) 719.46 Pain in left knee Pain in left knee 08/03/2019 10:10:[address] [facility] 719.46 Pain in right knee Pain in right knee 0 10:10:[address] [facility] [id number] Pain in left knee Pain in Left Knee Problem 12:00:00 AM EDT [facility] ([facility]) 755370250541117 Pain in right knee Pain in Right Knee Problem 08/03/2019 12:00:00 AM EDT [facility] ([facility]) 517805110605760 Pain in left knee Pain in Left Knee Problem 12:00:00 AM EDT [facility] ([facility]) 900298837316887 Pain in right knee Pain in Right Knee Problem 08/03/2019 12:00:00 AM EDT [facility] ([facility]) Surgeries/Procedures Procedure Description Date Indications Data Source(s) Psychiatric Diagnostic Evaluation (Non-Medical) 01/27/2020 12:00:00 AM EDT - 01/27/2020 12:00:00 AM EDT [facility] ([facility]) Psychiatric Diagnostic Evaluation (Non-Medical) 2019 12:00:00 AM EDT [facility] ([facility]) Extended Individual Psychotherapy - 45 min 01/12/2020 12:00:00 AM EDT - 01/12/2020 12:00:00 AM EDT [facility] ([facility]) Extended Individual Psychotherapy - 45 min 0 12:00:00 AM EDT [facility] ([facility]) OFFICE/OUTPATIENT VISIT, [facility] 12/13/2019 12:00:00 AM EDT - 12/13/2019 12:00:00 [...] Joint 08/19/2019 12:00:00 AM E DT [facility] ([facility]) MRI Lower Extremity Any Joint 08/19/2019 12:00:00 AM E DT [facility] ([facility]) Results ID Date Data Source [id number] 05/23/2020 02:00:00 PM EST [facility] Name Value Range Interpretation Code Description Data Genevieve rce(s) Supporting Document(s) SARS coronavirus 2 RNA Not Detected [facility] [place] This lab was ordered by [facility] and reported by [facility]. ID Date Data Source [id number] 05/16/2020 10:30:00 AM EST [facility] Name Value Range Interpretation Code Description Data Genevieve rce(s) Supporting Document(s) SARS coronavirus 2 RNA Not Detected [facility] [place] This lab was ordered by [facility] and reported by [facility]. ID Date Data Source [id number] 05/09/2020 02:00:00 PM EST [facility] Name Value Range Interpretation Code Description Data Genevieve rce(s) Supporting Document(s) SARS coronavirus 2 RNA Not Detected [facility] [place] This lab was ordered by [facility] and reported by [facility]. ID Date Data Source [id number] 05/02/2020 10:30:00 AM EST [facility] Name Value Range Interpretation Code Description Data Genevieve rce(s) Supporting Document(s) SARS coronavirus 2 RNA Not Detected [facility] [place] This lab was ordered by [facility] and reported by [facility]. ID Date Data Source [id number] 04/25/2020 03:00:00 PM EST [facility] Name Value Range Interpretation Code Description Data Genevieve rce(s) Supporting Document(s) SARS coronavirus 2 RNA Not Detected [facility] [place] This lab was ordered by [facility] and reported by [facility]. ID Date Data Source [id number] 04/18/2020 01:00:00 PM EST [facility] Name Value Range Interpretation Code Description Data Genevieve rce(s) Supporting Document(s) SARS coronavirus 2 RNA Not Detected [facility] [place] This lab was ordered by [facility] and reported by [facility]. ID Date Data Source [id number] 04/11/2020 03:05:00 PM EST [facility] Name Value Range Interpretation Code Description Data Genevieve rce(s) Supporting Document(s) SARS coronavirus 2 RNA [facility] This lab was ordered by [facility] and reported by [facility]. ID Date Data Source [id number] 04/04/2020 02:00:00 PM EST [facility] Name Value Range Interpretation Code Description Data Genevieve rce(s) Supporting Document(s) SARS coronavirus 2 RNA [facility] This lab was ordered by [facility] and reported by [facility]. ID Date Data Source [id number] 03/28/2020 09:15:00 AM EST [facility] Name Value Range Interpretation Code Description Data Genevieve rce(s) Supporting Document(s) SARS coronavirus 2 RNA [facility] This lab was ordered by [facility] and reported by [facility]. ID Date Data Source [id number] 03/21/2020 01:05:00 PM EST [facility] Name Value Range Interpretation Code Description Data Genevieve rce(s) Supporting Document(s) SARS coronavirus 2 RNA [facility] This lab was ordered by [facility] and reported by [facility]. ID Date Data Source [id number] 03/16/2020 08:39:00 AM EST [facility] Name Value Range Interpretation Code Description Data Genevieve rce(s) Supporting Document(s) SARS coronavirus 2 RNA [facility] This lab was ordered by [facility] and reported by [facility]. ID Date Data Source [id number] 03/07/2020 09:00:00 AM EST [facility] Name Value Range Interpretation Code Description Data Genevieve rce(s) Supporting Document(s) SARS coronavirus 2 RNA [facility] This lab was ordered by [facility] and reported by [facility]. ID Date Data Source [id number] 02/29/2020 10:30:00 AM EST [facility] Name Value Range Interpretation Code Description Data Genevieve rce(s) Supporting Document(s) SARS coronavirus 2 RNA [facility] This lab was ordered by [facility] and reported by [facility]. ID Date Data Source [id number] 02/22/2020 12:00:00 PM EST [facility] Name Value Range Interpretation Code Description Data Genevieve rce(s) Supporting Document(s) SARS coronavirus 2 RNA [facility] This lab was ordered by [facility] and reported by [facility]. ID Date Data Source [id number] 02/15/2020 10:38:00 AM EST [facility] Name Value Range Interpretation Code Description Data Genevieve rce(s) Supporting Document(s) SARS coronavirus 2 RNA [facility] This lab was ordered by [facility] and reported by [facility]. ID Date Data Source [id number] 02/08/2020 02:00:00 PM EDT [facility] Name Value Range Interpretation Code Description Data Genevieve rce(s) Supporting Document(s) SARS coronavirus 2 RNA [facility] This lab was ordered by [facility] and reported by [facility]. ID Date Data Source [id number] 02/01/2020 02:25:00 PM EDT [facility] Name Value Range Interpretation Code Description Data Genevieve rce(s) Supporting Document(s) SARS coronavirus 2 RNA [facility] This lab was ordered by [facility] and reported by [facility]. ID Date Data Source [id number] 01/25/2020 10:35:00 AM EDT [facility] Name Value Range Interpretation Code Description Data Genevieve rce(s) Supporting Document(s) SARS coronavirus 2 RNA [facility] This lab was ordered by [facility] and reported by [facility]. ID Date Data Source [id number] 01/18/2020 10:00:00 AM EDT [facility] Name Value Range Interpretation Code Description Data Genevieve rce(s) Supporting Document(s) SARS coronavirus 2 RNA [facility] This lab was ordered by [facility] and reported by [facility]. ID Date Data Source [id number] 01/11/2020 09:00:00 AM EDT [facility] Name Value Range Interpretation Code Description Data Genevieve rce(s) Supporting Document(s) SARS coronavirus 2 RNA [facility] This lab was ordered by [facility] and reported by [facility]. ID Date Data Source [id number] 01/06/2020 10:00:00 AM EDT [facility] Name Value Range Interpretation Code Description Data Genevieve rce(s) Supporting Document(s) SARS coronavirus 2 RNA [facility] This lab was ordered by [facility] and reported by [facility]. ID Date Data Source [id number] 12/28/2019 11:05:00 AM EDT [facility] Name Value Range Interpretation Code Description Data Genevieve rce(s) Supporting Document(s) SARS coronavirus 2 RNA [facility] This lab was ordered by [facility] and reported by [facility]. ID Date Data Source [id number] 12/21/2019 12:00:00 PM EDT [facility] Name Value Range Interpretation Code Description Data Genevieve rce(s) Supporting Document(s) SARS coronavirus 2 RNA [facility] This lab was ordered by [facility] and reported by [facility]. ID Date Data Source [id number] 12/16/2019 11:00:00 AM EDT [facility] Name Value Range Interpretation Code Description Data Genevieve rce(s) Supporting Document(s) SARS coronavirus 2 RNA [facility] This lab was ordered by [facility] and reported by [facility]. ID Date Data Source [id number] 12/07/2019 11:09:00 AM EDT [facility] Name Value Range Interpretation Code Description Data Genevieve rce(s) Supporting Document(s) SARS coronavirus 2 RNA [facility] This lab was ordered by [facility] and reported by [facility]. ID Date Data Source [id number] 11/02/2019 03:32:00 PM EDT [facility] Name Value Range Interpretation Code Description Data Genevieve rce(s) Supporting Document(s) SARS coronavirus 2 RNA [facility] This lab was ordered by [facility] and reported by [facility]. ID Date Data Source [id number] 10/29/2019 01:07:[address] [facility] Measurements & CalculationsHeight: 66 inches (5 [...] during this visit, including review of any xidn-kun-qrpiyxd medications, herbal therapies, and/or supplements.Allergy ReviewAllergy List [...] gynecological examination (general) (routine) without abnormal findings (SFU07-I90.419) Assessment: Instructions: You have had your PAP [...] for malignant neoplasms of the cervix (ICD-V76.2) (IJQ05-D84.4) Assessment: Instructions: As above.Encounter for other screening for malignant neoplasm of breast (ICD10- Z12.39) Assessment: Instructions: Clinical breast exam was performed in the office today, no abormalities identified. Patient instructed on how to perform self breast exams at home and recommended to perform this monthly. Notify the o ffice of any concerns.Skin tag (ICD-701.9) (KTE12-N39.8): left nipple Assessment: Instructions: Monitor.Changed:From: Dx of Anti-nuclear factor positive (ICD-795.79) (RFW43-M45.8): possible Sjogren's To: Rheumatoid arthritis of multiple joints (ICD-714.0) (NQG83-H77.89): 09/2019 [facility] Rheum[facility]:Rheumatoid arthritis of multiple joints (ICD-714.0) (ICD10- M06.89): 09/2019 [facility] Rhe[facility] Assessment: Instructions: Continue per radio announcer.Assessment not Saved Skin tag (WVF22-X42.8): Patient Instructions/Care Plan: Encounter for gynecological examination [...] Monitor.Rheumatoid arthritis of multiple joints: Continue per radio announcer. Plan developed in collaboration with patient and/or familyMedications:CEPHALEXIN 500 MG ORAL CAPSULEPREDNISONE 20 MG ORAL TABLETALBUTEROL SULFATE HFA 108 (90 BASE) MCG/ACT INHALATION AEROSOL SOLUTIONMedication Changes:Added: PREDNISONE 10 MG ORAL TABLET-take two in the morningCEPHALEXIN 500 MG ORAL CAPSULE-take one capsule by mouth three times a day for 7 daysChanged:From: ORAL PREDNISONE 10 MG ORAL TABLET Qty: [id number] To: PREDNISONE 20 MG ORAL TABLET-take 2 tablets by mouth everyday for 8 daysAllergies:* SEASONAL (Moderate)Orders:CYTP C/V AUTO THIN LYR PREPJ SCR SYS PHYS [CPT-15658] Preventive, Est, (18-39) [CPT-07611] Follow-Up Return to clinic: in 1 year for preventive care visitAdditional Follow-Up: well womanClinical Visit Summary Completed Name Value Range Interpretation Code Description Data Genevieve rce(s) Supporting Document(s) ID Date Data Source [id number] 10/26/2019 03:49:00 PM EDT [facility] Name Value Range Interpretation Code Description Data Genevieve rce(s) Supporting Document(s) SARS coronavirus 2 RNA [facility] This lab was ordered by [facility] and reported by [facility]. ID Date Data Source [id number] 10/19/2019 11:28:00 AM EDT [facility] Name Value Range Interpretation Code Description Data Genevieve rce(s) Supporting Document(s) SARS coronavirus 2 RNA [facility] This lab was ordered by [facility] and reported by [facility]. ID Date Data Source [id number] 10/12/2019 11:43:00 AM EDT [facility] Name Value Range Interpretation Code Description Data Genevieve rce(s) Supporting Document(s) SARS CORONAVIRUS 2 RNA [facility] This lab was ordered by [facility] and reported by [facility]. ID Date Data Source [id number] 10/11/2019 04:15:00 PM EDT [facility] [place] [facility] [place] SPINE CERVICALCLINICAL HISTORY: Neck pain, no [...] rce(s) Supporting Document(s) ID Date Data Source [id number] 10/11/2019 03:48:00 PM EDT [facility] Name Value Range Interpretation Code Description Data Genevieve rce(s) Supporting Document(s) 15 mm/h (0-20) ESR [facility] ([facility]) Unless otherwise specified, testing perf ormed by [facility] [address] [place] [id number]

ID Date Data Source [id number] 10/11/2019 03:48:00 PM EDT [facility] ([facility]) Name Value Range Interpretation Code Description Data Genevieve rce(s) Supporting Document(s) 4.1 g/dL (3.5-4.6) ALBUMIN [facility] ([facility]) Unless otherwise specified, testing perf ormed by [facility] [address] [place] [id number]

ID Date Data Source [id number] 10/11/2019 03:48:00 PM EDT [facility] ([facility]) Name Value Range Interpretation Code Description Data Genevieve rce(s) Supporting Document(s) 20 U/L (12-78) ALT (SGPT) [facility] ([facility]) Unless otherwise specified, testing perf ormed by [facility] [address] [place] [address]19

ID Date Data Source [id number] 10/11/2019 03:48:00 PM EDT [facility] ([facility]) Name Value Range Interpretation Code Description Data Genevieve rce(s) Supporting Document(s) 17 U/L (11-39) AST (SGOT) [facility] ([facility]) Unless otherwise specified, testing perf ormed by [facility] [address] [place] [address] 13147

ID Date Data Source [id number] 10/11/2019 03:48:00 PM EDT [facility] ([facility]) Name Value Range Interpretation Code Description Data Genevieve rce(s) Supporting Document(s) >60 (>59) GFR ( AMER) [facility] ([facility]) 0.81 mg/dL (0.60-1.00) CREATININE [facility] ([facility]) >60 (>59) GFR [facility] GFR INTERPRETATION [facility] ([facility]) --NORMAL KIDNEY FUNCTION OR MILD DISEASE - GFR >OR= 60CHRONIC KIDNEY DISEASE - GFR 15 - 59RENAL FAILURE - GFR <15 Est. GFR calculation based on the MDRDstudy equation, which assumes a steadystate for creatinine. Est. GFR should notbe used for medication dosing.Unless otherwise specified, testing performed by [facility] [place] [facility] [address] [place] [address]

ID Date Data Source [id number] 10/11/2019 03:48:00 PM EDT [facility] ([facility] [...] otherwise specified, testing perf ormed by [facility] [address] [place] [address] 13275

ID Date Data Source [id number] 10/11/2019 03:48:00 PM EDT [facility] ([facility]) Name Value Range Interpretation Code Description Data Genevieve rce(s) Supporting Document(s) 4.0 mg/dL (2.6-6.0) URIC ACID [facility]) Unless otherwise specified, testing perf ormed by [facility] [address] [place] [address] 89284

ID Date Data Source [id number] 10/11/2019 03:48:00 PM EDT [facility] ([facility]) Name Value Range Interpretation Code Description Data Genevieve rce(s) Supporting Document(s) Negative ANAIFA [facility] ID Date Data Source [id number] 10/11/2019 03:48:00 PM EDT [facility] ([facility]) Name Value Range Interpretation Code Description Data Genevieve rce(s) Supporting Document(s) <0.3 (0.0-0.5) C REACTIVE PROTEIN @ [facility] ( [facility]) Unless otherwise specified, testing perf ormed by [facility] [place] [facility] [address] [place] [id number]

ID Date Data Source 10/11/2019 09:05:19 PM [...] - CORE MPV 9.7 fL (7.1-10.7) [facility] - C[facility] NEUT % 66.3 % (35.0-75.0) [facility] LYMPH % 25.1 % (16.0-52.0) [facility] C[facility] MONO % 3.5 % (0.0-8.0) [facility] - CORE EOS % 4.3 % (0.0-5.0) [facility] - CORE BASO % 0.8 % (0.0-4.0) [facility] - CORE NEUT # 5.9 10*3/uL (1.8-7.7) [facility] LYMPH # 2.3 10*3/uL (1.2-4.8) [facility] - C[facility] MONO # 0.3 10*3/uL (0.0-0.8) [facility] [facility] Eosinophils [#/volume] in Blood by Automated count 0.4 10*3/uL (0.0-0 .5) [facility] - CORE BASO # 0.1 10*3/uL (0.0-0.2) [facility] [place] - C[facility] ID Date Data Source 10/11/2019 09:24:04 PM EDT [facility] Name Value Range Interpretation Code Description Data Genevieve rce(s) Supporting Document(s) ESR 15 mm/h (0-20) [facility] ID Date Data Source 10/11/2019 09:45:48 PM EDT [facility] Name Value Range Interpretation Code Description Data Genevieve rce(s) Supporting Document(s) ALBUMIN 4.1 g/dL (3.5-4.6) [facility] ID Date Data Source 10/11/2019 09:45:48 PM EDT [facility] Name Value Range Interpretation Code Description Data Genevieve rce(s) Supporting Document(s) ALT (SGPT) 20 U/L (12-78) [facility] ID Date Data Source 10/11/2019 09:45:48 PM EDT [facility] Name Value Range Interpretation Code Description Data Genevieve rce(s) Supporting Document(s) AST (SGOT) 17 U/L (11-39) [facility] ID Date Data Source 10/11/2019 09:45:48 PM EDT [facility] [employer] Name Value Range Interpretation Code Description Data Genevieve rce(s) Supporting Document(s) CREATININE 0.81 mg/dL (0.60-1.00) [facility] GFR >60 ml/min/1.73m2 (>59) [facility] [place] [employer] GFR ( AMER) >60 ml/min/1.73m2 (>59) [facility] [employer] [facility] GFR INTERPRETATION [facility] [place] [facility] --NORMAL KIDNEY FUNCTION OR MILD DISEASE - GFR >OR= 60CHRONIC KIDNEY DISEASE - GFR 15 - 59RENAL FAILURE - GFR <15 Est. GFR calculation based on the MDRDstudy equation, which assumes a steadystate for creatinine. Est. GFR should notbe used for medication dosing. ID Date Data Source 10/11/2019 09:45:48 PM EDT [facility] [employer] Name Value Range Interpretation Code Description Data Genevieve rce(s) Supporting Document(s) C REACTIVE PROTEIN @ <0.3 mg/dL (0.0-0.5) [facility] ID Date Data Source 10/11/2019 09:45:48 PM EDT [facility] [employer] Name Value Range Interpretation Code Description Data Genevieve rce(s) Supporting Document(s) URIC ACID 4.0 mg/dL (2.6-6.0) [facility] ID Date Data Source [id number] 10/05/2019 11:41:00 AM EDT [facility] Name Value Range Interpretation Code Description Data Genevieve rce(s) Supporting Document(s) SARS CORONAVIRUS 2 RNA [facility] This lab was ordered by [facility] and reported by [facility]. ID Date Data Source [id number] 09/28/2019 11:49:00 AM EDT [facility] Name Value Range Interpretation Code Description Data Genevieve rce(s) Supporting Document(s) SARS CORONAVIRUS 2 RNA [facility] This lab was ordered by [facility] and reported by [facility]. ID Date Data Source [id number] 09/21/2019 09:07:[address] [facility] Measurements & CalculationsHeight: 66 inches (5 [...] or Preferred Language: EnglishFamily and Home Address: [address] [place] [address] What is your housing situation today? I have housing Are you worried about losing your housing? NoMoney and Resources What is the highest level of school that you have finished? high school graduate Employed? 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 Denies Insecurity: food, utilities, clothing, early childhood teacher, phone, legal services, otherIn the past year, [...] 2 nights in a row in a chcf, senior living, fpc center or juvenile correctional facility? No Has [...] during this visit, including review of any rujg-hoc-hlocify medications, herbal therapies, and/or supplements.Allergy ReviewAllergy List [...] referral from ortho to [facility] in [place] for possible sjogren'sSkin: Denies rash, suspicious lesions. [...] general adult medical examination without abnormal findings (WKR27-L10.00) Assessment: Instructions: Recommend annual medical appointments. Recommend routine dental and vision care. Recommend influenza vaccines annually and tetanus boosters every 10 years. Due for pap, scheduled in the near future.Mild intermittent asthma, uncomplicated (WYZ64-H39.20) Assessment: Instructions: Continue with antihistamine daily and albuterol inhaler as needed. Call with any concerns or worsening symptoms.Other seasonal allergic rhinitis (EXF62-L86.2) Assessment: Instructions: As above.Anti-nuclear factor positive (ICD-795.79) (HLS35-D78.8): possible Sjogren's Assessment: Instructions: Continue per orthopedics. Pending referral to arthritis specialist in [place].Family history of diabetes mellitus (ICD-V18.0) (GHI22-A61.3) Assessment: Instructions: Fasting labs ordered to screen sugar.Changed:From: Dx of BMI 28.0- 28.9 (ICD-V85.24) (QHW92-V49.28) To: Body Mass Index 29.0-29.9, adult (ICD- V85.25) (YLB95-V53.29)Assessed:Overweight (ICD-278.02) (FUD88-C37.3) Assessment: Instructions: Fasting labs have been ordered for you today, please complete these at the facility of your choice. When labs are drawn, please ensure that you have had nothing to eat or drink for 8-10 hours prior to the blood drawn. Water or black coffee is OK to have before the blood draw.Body Mass Index 29.0-29.9, adult (ICD-V85.25) (PLR52-V08.29) Assessment: Instructions: As above.Patient Instructions/Care Plan: Encounter [...] orthopedics. Pending referral to arthritis specialist in [place].Overweight: Fasting labs have been ordered for you [...] 5 Method: ElectronicAllergies:* SEASONAL (Moderate)Orders:Basic Metabolic Panel [[id number], [id number]] Preventive, Est, (18- 39) [CPT-42982] Follow-Up Return to clinic: in 1 year for preventive care visitAdditional Follow-Up: annual PEClinical Visit Summary CompletedMedications:ALBUTEROL SULFATE HFA 108 (90 BASE) MCG/ACT INHALATION AEROSOL SOLUTION (ALBUTEROL SULFATE) 2 puffs oral inhalation q 4 hrs prn wheezing or shortness of breath #1[Inhaler] x 5 Entered and Authorized by: Robson BENJAMIN Method used: Electronically to [facility] (retail) [address] [place] [address] Note to Pharmacy: Route: INH; RxID: [id number] signed by Robson BENJAMIN on 09/27/2019 at 10:38 AM Name Value Range Interpretation Code Description Data Genevieve rce(s) Supporting Document(s) ID Date Data Source [id number] 09/21/2019 06:00:00 AM EDT [facility] Name Value Range Interpretation Code Description Data Genevieve rce(s) Supporting Document(s) SARS CORONAVIRUS 2 RNA [facility] This lab was ordered by [facility] and reported by [facility]. ID Date Data Source [id number] 09/14/2019 02:07:00 PM EDT [facility] Name Value Range Interpretation Code Description Data Genevieve rce(s) Supporting Document(s) SARS CORONAVIRUS 2 RNA [facility] This lab was ordered by [facility] and reported by [facility]. ID Date Data Source [id number] 09/08/2019 03:22:00 PM EDT [facility] Name Value Range Interpretation Code Description Data Genevieve rce(s) Supporting Document(s) SARS CORONAVIRUS 2 RNA [facility] This lab was ordered by [facility] and reported by [facility]. ID Date Data Source [id number] 08/30/2019 03:35:00 PM EDT [facility] Name Value Range Interpretation Code Description Data Genevieve rce(s) Supporting Document(s) SARS CORONAVIRUS 2 RNA [facility] This lab was ordered by [facility] and reported by [facility]. ID Date Data Source [id number] 08/17/2019 10:58:00 AM EDT [facility] ) Name Value Range Interpretation Code Description Data Genevieve rce(s) Supporting Document(s) C reactive protein [Mass/volume] in Serum or Plasma by High sensitivity method Laboratory test result 0.00-0.30 [facility] ([facility]) ID Date Data Source [id number] 08/17/2019 10:58:00 AM EDT [facility] ([facility]) Name Value Range Interpretation Code Description Data Genevieve rce(s) Supporting Document(s) Lyme Disease IgM Ab Quantitati Laboratory test result 0.00-0.79 [facility] ([facility]) <content>Negative <0.80</content >
<content>Equivocal 0.80 - 1.19</content>
<content>Positive >1.19</content>
<content>.</content>
<content>IgM levels may peak at 3-6 weeks post infection, then</content>
<content>gradually decline.</content>
<content></content> Lyme Disease IgG/IgM Antibodie Laboratory test result 0.00-0.90 [facility] ([facility]) <content>Negative <0.91</content >
<content>Equivocal 0.91 - 1.09</content>
<content>Positive >1.09</content>
<content></content> ID Date Data Source [id number] 08/17/2019 10:58:00 AM EDT [facility] ([facility]) Name Value Range Interpretation Code Description Data Genevieve rce(s) Supporting Document(s) Erythrocyte sedimentation rate by Westergren method 12 mm/hr 0-20 [facility] ([facility]) HLA-B27 related Ag [Presence] Laboratory test result [facility] ([facility]) HLA-B*27 Negative B27 allele interpretation for all loci based on IMGT/HLA database version 3.38 This test was developed and its performance characteristics determined by [employer]. It has not been cleared or approved by the Food and Drug Administration. [facility] CLIA ID Number [id number] . This test was performed using PCR (Polymerase Chain Reaction)/SSOP (Sequence Specific Oligonucleotide Probes) technique. SBT (Sequence Based Typing) and/or SSP (Sequence Specific Primers) may be used as supplemental methods when necessary. Please contact [facility] Customer Service at if you have any questions. . Director of [facility] Laboratory Dr Bob Segundo, PhD ID Date Data Source [id number] 08/17/2019 10:58:00 AM EDT [facility] ([facility]) Name Value Range Interpretation Code Description Data Genevieve rce(s) Supporting Document(s) Antinuclear Antibodies Direct Laboratory test result Abnormal (applies to non- numeric results) [facility] ([facility]) Anti Double Strand-Dna AB Laboratory test result 0-9 [facility] ([facility]) <content>Negative <5</content>
<content>Equivocal 5 - 9</content>
<content>Positive >9</content>
<content></content> ADMINISTRATIVE SUPPORT CLERK Antibodies Laboratory test result 0.0-0.9 [facility] ([facility]) Daly Antibodies Laboratory test result 0.0-0.9 [facility] ([facility]) Sjogren's Anti SS-B 1.7 AI 0.0-0.9 [facility] (No [facility]) Sjogren's Anti SS-A Laboratory test result 0.0-0.9 [facility] ([facility]) Perez Comment Laboratory test result [facility] ([facility]) . Autoantibody Disease Association Condition Frequency [...] (anti-Daly) SLE 15 - 30% ------- --------- ADMINISTRATIVE SUPPORT CLERK Mixed Connective Tissue Disease 95% (U1 nRNP, SLE 30 - 50% anti-ribonucleoprotein) Polymyositis and/or Dermatomyositis 20% -------- --------- Scl-70 (antiDNA Scleroderma (diffuse) 20 - 35% topoisomerase) Crest 13% -------- --------- Radhika-1 Polymyositis and/or Dermatomyositis 20 - 40% -------- --------- Centromere B Scleroderma - Crest variant 80% Performed at: [facility] Lab[address] [id number] Ironworker: Renate Ya MD, Phone: [phone] Performed at: [facility] Lab[address] [id number] Ironworker: Bob Segundo PhD, Phone: [phone] ID Date Data Source [id number] 08/17/2019 10:58:00 AM EDT [facility] ([facility] ) Name Value Range Interpretation Code Description Data Genevieve rce(s) Supporting Document(s) Rheumatoid factor [Units/volume] in Serum or Plasma Laboratory test result [facility] ([facility]) ID Date Data Source [id number] 08/17/2019 10:58:00 AM EDT [facility] ([facility] ) Name Value Range Interpretation Code Description Data Genevieve rce(s) Supporting Document(s) Red Blood Count 4.76 10 4.00-5.40 [facility] ([facility]) White Blood Count 7.3 10 4.0-10.0 [facility] ([facility]) Hematocrit 43.5 % 36.0-47.0 [facility] ([facility]) Hemoglobin 14.6 g/dL 12.0-15.5 [facility] ([facility]) Mean Corpuscular Volume 91.4 fl 80.0-96.0 M [facility] ([facility]) Mean Corpuscular HGB Conc 33.6 g/dL 32.0-36.5 [facility] ([facility]) Mean Corpuscular Hemoglobin 30.7 pg 27.0-33.0 [facility] ([facility]) Platelet Count, Automated 231 10 150-450 [facility] ([facility]) Red Cell Distribution Width 12.9 % 11.5-14.5 [facility] ([facility]) Neutrophils % 59.7 % 36.0-66.0 [facility] ([facility]) Bledsoe % 4.0 % 0.0-5.0 [facility] ([facility] Lymph % 30.8 % 24.0-44.0 [facility] ([facility]) Baso % 0.7 % 0.0-1.0 [facility] ([facility]) Eos % 4.5 % 0.0-3.0 [facility] ([facility]) Neutrophils # 4.4 10 1.5-8.5 [facility] Nucleated Red Blood Cell % 0.0 % 0-0 [facility] ([facility]) Immature Granulocyte % 0.3 % 0-3.0 [facility] ([facility]) Bledsoe # 0.3 10 0.0-0.8 [facility] ([facility]) Lymph # 2.2 10 1.5-5.0 [facility] ([facility]) Eos # 0.3 10 0.0-0.5 [facility] ([facility]) Baso # 0.1 10 0.0-0.2 [facility] ([facility]) ID Date Data Source [id number] 08/03/2019 09:45:[address] [facility] Measurements & CalculationsHeight: 66 inches (5 [...] arthritis in the family. 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 HPI performed by: Robson BENJAMIN, August 03, 2019 10:04 AMTransitions of Care InboundProblem ReviewProblem List was reviewed and/or updated during this visit.Medication Reconciliation & ReviewMedication List was reviewed and/or updated during this visit, including review of any rhil-olg-whtrmvm medications, herbal therapies, and/or supplements. Patient has no known medications.All ergy ReviewAllergy List was reviewed and/or updated during this visit. Patient has no known allergies.Provider Calculated and Reviewed all Clinical Protocols for patient today. Cancer Screening Pap Smear/HPV TestingReviewed: Previous Comments: [facility], 06/01 last PAP (11/18/2017)Today's Comments[facility] HealthReview of Systems General: Denies chills, dizziness, [...] Plan Problems:Added: Pain in right knee (ICD-719.46) (AWA53-C19.561) Assessment: Instructions: Knee xrays, given order today to take elsewhere for views. Will also refer to ortho for ongoing knee pain. Discussed the utility of physical therapy, which may provide some relief. Continue ibuprofen, heat/ice alternati ng, elevate the legs and rest after work or prolonged activity. May try over the counter supportive knee brace in the meantime.Pain in left knee (ICD-719.46) (RWB05-O06.562) Assessment: Instructions: As above.Patient Instructions/Care Plan: Pain [...] - Knee, complete, 4 or more views [CPT-14782] X-Ray - Knee, complete, 4 or more views [CPT-76624] Adult - Ofc Vst, EST, Level III [CPT- 44767] Orthopaedics Consult [CPT-68115] Follow-Up Return to clinic: in 6 weeks for preventive care visitAdditional Follow-Up: annual PEClinical Visit Summary Completed Name Value Range Interpretation Code Description Data Genevieve rce(s) Supporting Document(s) Procedure Social History Code Duration Value Status Description Data Source(s ) Smoking 01/27/2020 12:00:00 AM EDT Unknown if ever smoked comp leted Unknown if ever smoked [facility] ([facility]) Smoking 01/12/2020 12:00:00 AM EDT Unknown if ever smoked comp leted Unknown if ever smoked [facility] ([facility]) Caffeine Use Details 12/13/2019 12:00:00 AM EDT completed [employer] ([facility]) 12/13/2019 12:00:00 AM EDT Ex-cigarette smoker completed Ex-cigarette smoker [facility] ([employer]) Smoking 12/13/2019 12:00:00 AM EDT Former smoker completed Former smoker [employer] ([employer]) Vital Signs ID Date Data Source UNK Name Value Range Interpretation Code Description Data Source(s) Systolic blood pressure 153 mm[Hg] 153 mm[Hg] [facility] Body height 66 [in_i] 66 [in_i] MIKE ([facility]) Diastolic blood pressure 93 mm[Hg] 93 mm[Hg] [facility]KE ([facility]) Body weight 2934.4 [oz_av] 2934.4 [oz_av] ATHEN A ([facility]) Systolic blood pressure 127 mm[Hg] 127 mm[Hg] A THENA ([facility]) Body mass index (BMI) [Ratio] 29.6 kg/m2 29.6 k g/m2 MIKE ([facility]) Body height 66 [in_i] 66 [in_i] [facility]KE ([facility]) Diastolic blood pressure 85 mm[Hg] 85 mm[Hg] [facility] ([facility]) Body weight 2934.4 [oz_av] 2934.4 [oz_av] ATHEN A ([facility]) Systolic blood pressure 127 mm[Hg] 127 mm[Hg] [facility] Body mass index (BMI) [Ratio] 29.6 kg/m2 29.6 k g/m2 MIKE ([facility]) Body height 66 [in_i] 66 [in_i] MIKE ([facility]) Diastolic blood pressure 85 mm[Hg] 85 mm[Hg] MIKE ([facility]) Body mass index (BMI) [Ratio] 30.38 kg/m2 Overweight 30.38 kg/m2 [facility] ([facility]) Diastolic blood pressure 82 mm[Hg] 82 mm[Hg] [facility] ([facility]) Systolic blood pressure 120 mm[Hg] 120 mm[Hg] N [facility] ([facility]) Body weight 83.461 kg 83.461 kg [facility] ([facility]) Body height 165.74 cm 165.74 cm [facility] ([facility]) Body weight 2930.08 [oz_av] 2930.08 [oz_av] ATH ANUSHA ([facility]) Systolic blood pressure 116 mm[Hg] 116 mm[Hg] A [facility] ([facility]) Body mass index (BMI) [Ratio] 29.66 kg/m2 29.66 kg/m2 MIKE ([facility]) Body height 66 [in_i] 66 [in_i] MIKE ([facility]) Diastolic blood pressure 81 mm[Hg] 81 mm[Hg] MIKE ([facility]) Body weight 2930.08 [oz_av] 2930.08 [oz_av] ATH ANUSHA ([facility]) Systolic blood pressure 116 mm[Hg] 116 mm[Hg] A [facility] ([facility]) Body height 66 [in_i] 66 [in_i] MIKE ([facility]) Diastolic blood pressure 81 mm[Hg] 81 mm[Hg] MIKE ([facility]) Body mass index (BMI) [Ratio] 30.22 kg/m2 Overweight 30.22 kg/m2 [facility] ([facility]) Diastolic blood pressure 60 mm[Hg] 60 mm[Hg] Next[facility] ([facility]) Systolic blood pressure 100 mm[Hg] 100 mm[Hg] N extGen ([facility]) Body weight 83.007 kg 83.007 kg [facility] ([facility]) Body height 165.74 cm 165.74 cm [facility] Body weight 2920 [oz_av] 2920 [oz_av] MIKE ([facility]) Systolic blood pressure 118 mm[Hg] 118 mm[Hg] A [facility] ([facility]) Body mass index (BMI) [Ratio] 29.56 kg/m2 29.56 kg/m2 MIKE ([facility]) Body height 66 [in_i] 66 [in_i] MIKE ([facility]) Diastolic blood pressure 82 mm[Hg] 82 mm[Hg] MIKE ([facility]) Body weight 2920 [oz_av] 2920 [oz_av] MIKE ([facility]) Systolic blood pressure 118 mm[Hg] 118 mm[Hg] A [facility] ([facility]) Body height 66 [in_i] 66 [in_i] MIKE ([facility]) Diastolic blood pressure 82 mm[Hg] 82 mm[Hg] MIKE ([facility]) Body mass index (BMI) [Ratio] 29.4 kg/m2 29.4 k g/m2 MEDENT ([facility]) Body weight 179.12 [lb_av] 179.12 [lb_av] MEDEN T ([facility]) Body height 65.5 [in_i] 65.5 [in_i] MEDENT ([facility]) 5'5.50" Body temperature 96.5 [degF] 96.5 [degF] MEDENT ([facility] ) Body weight 2900 [oz_av] 2900 [oz_av] MIKE ([facility]) Systolic blood pressure 119 mm[Hg] 119 mm[Hg] [facility] Body mass index (BMI) [Ratio] 29.36 kg/m2 29.36 kg/m2 MIKE ([facility]) Body height 66 [in_i] 66 [in_i] MIKE ([facility]) Diastolic blood pressure 80 mm[Hg] 80 mm[Hg] MIKE ([facility]) Body weight 2900 [oz_av] 2900 [oz_av] MIKE ([facility]) Systolic blood pressure 119 mm[Hg] 119 mm[Hg] Bryanna CHIN ([facility]) Body height 66 [in_i] 66 [in_i] MIKE ([facility]) Diastolic blood pressure 80 mm[Hg] 80 mm[Hg] MIKE ([facility]) Patient Treatment Plan of Care Planned Activity Planned Date Details Description Data Source (s) Prednisone 5 MG Oral Tablet 10/11/2019 12:00:00 AM EDT Next[facility] ([facility]) Prednisone 5 MG Oral Tablet MIKE ([facility]) Hydrocortisone 10 MG/ML / Neomycin 3.5 M G/ML / Polymyxin B 22744 UNT/ML Otic Suspension [facility] ([facility]) Hydroxyzine Hydrochloride 25 MG Oral Tablet MIKE ([facility]) Cefuroxime 500 MG Oral Tablet MIKE ([facility]) Prednisone 5 MG Oral Tablet MIKE ([facility]) Hydrocortisone 10 MG/ML / Neomycin 3.5 M G/ML / Polymyxin B 86359 UNT/ML Otic Suspension MIKE ([facility]) Cefuroxime 500 MG Oral Tablet MIKE ([facility])
[2020-06-01 12:06] LABS: HCG, SERUM QUALITATIVE NEGATIVE (NEGATIVE)
[2020-06-01 12:08] LABS: ALT/SGPT 55 U/L (12-78); BILIRUBIN,DIRECT < 0.1 MG/DL (0.0-0.2); BILIRUBIN,TOTAL 0.2 MG/DL (0.2-1.0); BLOOD UREA NITROGEN 11 MG/DL (7-18); CALCIUM LEVEL 9.6 MG/DL (8.5-10.1); CARBON DIOXIDE LEVEL 30 MEQ/L (21-32); CHLORIDE LEVEL 104 MEQ/L (98-107); CREATININE FOR GFR 0.84 MG/DL (0.55-1.30); GLOMERULAR FILTRATION RATE > 60.0 (>60); GLUCOSE, FASTING 87 MG/DL (70-100); LIPASE 145 U/L (73-393); POTASSIUM SERUM 4.4 MEQ/L (3.5-5.1); SODIUM LEVEL 140 MEQ/L (136-145); TOTAL PROTEIN 7.4 GM/DL (6.4-8.2)
[2020-06-01] MEDS ORDERED: PYRI1TAB5 PO (13:21)
[2020-06-01] MEDS ORDERED: MACR100C43 PO (13:21)
[2020-06-01 13:28] VITALS: BP 133/85
== END 2020-06-01 13:30 | disposition home or self-care (01) ==
LOC: M ED 10:39
DX: N39.0 Urinary tract infection, site not specified (principal); F32.9 Major depressive disorder, single episode, unspecified; J45.909 Unspecified asthma, uncomplicated; Z88.8 Allergy status to other drugs, medicaments and biological substances

== ENCOUNTER 2020-08-03 16:46 | Emergency (ER) | payer OTHER ==
[~2020-08-03] VITALS: Ht 165.1 cm; Wt 85.0 kg
[~2020-08-03 16:46] MED LIST changes: +MACR100C43 PO; +PYRI1TAB5 PO
[2020-08-03] MEDS ORDERED: IBUP-1022 PO (16:53)
--- NOTE | 2020-08-03 18:01 | REPVR ---
PROCEDURE INFORMATION: Exam: CT Orbits Without Contrast Exam date and time: 08/03/2020 5:24 PM Age: 35 years old Clinical indication: Injury or trauma; Fall; Blunt trauma (contusions or hematomas); Orbit/periorbital; Right; Additional info: Fell/hit eye TECHNIQUE: Imaging protocol: Computed tomography images of the orbits without contrast. Radiation optimization: All CT scans at this facility use at least one of these dose optimization techniques: automated exposure control; mA and/or kV adjustment per patient size (includes targeted exams where dose is matched to clinical indication); or iterative reconstruction. COMPARISON: No relevant prior studies available. FINDINGS: Orbital cavity: Orbits are normal. Globes are unremarkable. Paranasal sinuses: A cyst/polyp is present in the anterior superior right maxillary sinus. Bones/joints: No acute fracture. Soft tissues: No significant facial soft tissue swelling. IMPRESSION: 1. No acute facial bony injury identified. 2. No intraorbital injury identified. Electronically signed by: Rodney Liz On 08/03/2020 18:01:09 PM
[2020-08-03] MEDS ORDERED: LIDOCAINE 2% MDV 20ML VIAL SC ONE (18:05)
[2020-08-03 18:44] VITALS: BP 148/93
== END 2020-08-03 18:45 | disposition home or self-care (01) ==
LOC: M ED 16:46
DX: S01.111A Laceration without foreign body of right eyelid and periocular area, initial encounter (principal); W01.0XXA Fall on same level from slipping, tripping and stumbling without subsequent striking against object, initial encounter; Y92.89 Other specified places as the place of occurrence of the external cause; Y93.01 Activity, walking, marching and hiking; Y99.8 Other external cause status; J45.909 Unspecified asthma, uncomplicated; F32.9 Major depressive disorder, single episode, unspecified; Z88.3 Allergy status to other anti-infective agents

== ENCOUNTER 2020-08-08 09:00 | Emergency (ER) | payer OTHER ==
[~2020-08-08] VITALS: Ht 167.6 cm; Wt 79.5 kg
[~2020-08-08 09:00] MED LIST changes: +IBUP-1022 PO
[2020-08-08 10:46] VITALS: BP 129/81
== END 2020-08-08 10:50 | disposition home or self-care (01) ==
LOC: M ED 09:00
DX: Z48.02 Encounter for removal of sutures (principal)

== ENCOUNTER 2021-02-09 08:19 | Emergency (ER) | payer OTHER ==
[~2021-02-09] VITALS: Ht 167.6 cm; Wt 87.0 kg
--- OUTSIDE RECORDS SUMMARY | 2021-02-09 08:28 | CCD ---
Author Organization Unknown Address [address] [place] [address] Phone [phone] Care Team Providers Care Car Whacker Name Role Phone Beavers, Robson Jeannette Unavailable Unavailable Allergies Code Code System [...] TABLET BY MOUTH AT BEDTIME Completed 11/2020 [id number]-[id number] 3.5 mg-10,000 unit/mL-1 % ear d rops,susp Completed 03/06/2020 nitrofurantoin monohydrate/macrocrystals 100 mg capsule TAKE ONE CAPSULE BY MOUTH TWICE A DAY Completed 0 11/29/2020 phenazopyridine 200 mg tablet TAKE ONE TABLET BY MOUTH EVERY 8 HOURS Completed 11/29/2020 prednisone 20 mg tablet Take 1 tablet every day by oral route for 5 days. Active Not available prednisone 5 mg tablet TAKE TWO TABLETS BY MOUTH EVERY MORNING AND TAKE ONE TABLET BY MOUTH EVERY EVENING FOR 5 DAYS THEN TAKE ONE TABLET BY MOUTH TWICE A DAY FOR Completed 03/06/2020 sumatriptan 25 mg tablet TAKE 1 TABLET BY MOUTH AT HEADACHE ONSET REPEAT WITH 1 TABLET IF HEADACHE PERSIST AFTER 2 HOURS MAXIMUM DAILY DOSE 2 Completed 11/29/2020 triamcinolone acetonide 0.1 % topical cr eam APPLY A THIN LAYER TO THE AFFECTED AREA(S) BY TOPICAL ROUTE 2 TIMES PER DAY(Hands, arms, legs, back, thigh) Active Not available Problems Name Status Onset [...] Results Lab Results None recorded. Past Encounters 11/29/2020 Body Mass Index 25-29 - Overweight; Eruption Marilee Cruz, STOCK LETTERER-BC: [address] [place] [address], Ph. 05/22/2020 Painless Rectal Bleeding Verona Marvin, RPA-C: [address] [facility], [facility] [address], [place] [address], Ph. 03/06/2020 Tension-type Headache; Psychophysiologic Insomnia; Allergic Rhinitis Robson Beavers, RPA-C: [address] [facility], [facility] [address], [place] [address], Ph. Social History Tobacco Smoking Status Never Smoker Vaccine List Vaccine Type influenza, seasonal, injectable 02/13/2016 Tdap 10/15/2010 Plan of Care Patient Instructions Please return to clinic if not improved in 2-3 weeks. Please go to the ER if bleeding recurred , faintness, dizziness, black tarry stool, abdominal pain, fever, chills, pain. We have referred you to gastroenterology Reminders Provider Appointments None recorded. Lab None recorded. Referral None recorded. Procedures None recorded. Surgeries None recorded. Imaging None recorded. Vitals 11/29/2020 03:40PM HOSPITAL DISCHARGE Height Weight BMI Blood Pressure 66 in 185 lbs 2 oz 29.9 kg/m2 132/84 mm[Hg] 05/22/2020 11:50AM TELEHEALTH 20 Height Blood Pressure 66 in 153/93 mm[Hg] 03/06/2020 03:50PM ESTABLISHED [id number] Height Weight BMI Blood Pressure 66 in [...]
--- OUTSIDE RECORDS SUMMARY | 2021-02-09 08:28 | CCD ---
Author Author [facility] Organization [facility] Address Unknown Phone Unavailable Care Team Providers Care Workforce Development Specialist Name Role Phone BEAVERS, MICHAEL ROBSON RPA-C [...] Unavailable BEAVERS, MICHAEL ROBSON RPA-C Unavailable Unavailable Anthony, A Marilee OPERATIONS FORESTER Unavailable Unavailable Anthony, A Marilee OPERATIONS FORESTER Unavailable Unavailable Anthony, A Marilee OPERATIONS FORESTER Unavailable Unavailable Anthony, A Marilee OPERATIONS FORESTER Unavailable Unavailable Anthony, A Marilee OPERATIONS FORESTER Unavailable Unavailable Anthony, A Marilee OPERATIONS FORESTER Unavailable Unavailable Anthony, A Marilee OPERATIONS FORESTER Unavailable Unavailable Anthony, A Marilee OPERATIONS FORESTER Unavailable Unavailable Anthony, A Marilee OPERATIONS FORESTER Unavailable Unavailable Anthony, A Marilee OPERATIONS FORESTER Unavailable Unavailable Anthony, A Marilee OPERATIONS FORESTER Unavailable Unavailable Anthony, A Marilee OPERATIONS FORESTER Unavailable Unavailable Anthony, A Marilee OPERATIONS FORESTER Unavailable Unavailable Anthony, A Marilee OPERATIONS FORESTER Unavailable Unavailable Anthony, A Marilee OPERATIONS FORESTER Unavailable Unavailable Anthony, A Marilee OPERATIONS FORESTER Unavailable Unavailable Anthony, A Marilee OPERATIONS FORESTER Unavailable Unavailable Anthony, A Marilee OPERATIONS FORESTER Unavailable Unavailable Anthony, A Marilee OPERATIONS FORESTER Unavailable Unavailable Anthony, A Marilee OPERATIONS FORESTER Unavailable Unavailable Anthony, A Marilee OPERATIONS FORESTER Unavailable Unavailable Anthony, A Marilee OPERATIONS FORESTER Unavailable Unavailable Anthony, A Marilee OPERATIONS FORESTER Unavailable Unavailable Anthony, A Marilee OPERATIONS FORESTER Unavailable Unavailable Anthony, A Marilee OPERATIONS FORESTER Unavailable Unavailable Anthony, A Marilee OPERATIONS FORESTER Unavailable Unavailable Anthony, A Marilee OPERATIONS FORESTER Unavailable Unavailable Anthony, A Marilee OPERATIONS FORESTER Unavailable Unavailable Anthony, A Marilee OPERATIONS FORESTER Unavailable Unavailable Anthony, A Marilee OPERATIONS FORESTER Unavailable Unavailable Anthony, A Marilee OPERATIONS FORESTER Unavailable Unavailable Andreas Pricecopuja Unavailable SMALLWOOD, SUKHWINDER Unavailable Unavailable SMALLWOOD, SUKHWINDER [...] SUKHWINDER Unavailable Unavailable SMALLWOOD, SUKHWINDER Unavailable Unavailable Pasniciuc, Puja Bolton MD Unavailable Unavailable Pasniciuc, Puja Bolton MD Unavailable Unavailable Pasniciuc, Puja Bolton MD Unavailable Unavailable Pasniciuc, Puja Bolton MD Unavailable Unavailable Pasniciuc, Puja Bolton MD Unavailable Unavailable Pasniciuc, Puja Bolton MD Unavailable Unavailable Pasniciuc, Puja Bolton MD Unavailable Unavailable Pasniciuc, Puja Bolton MD Unavailable Unavailable Pasniciuc, Puja Bolton MD Unavailable Unavailable Pasniciuc, Puja Bolton MD Unavailable Unavailable Pasniciuc, Puja Bolton MD Unavailable Unavailable Pasniciuc, Puja Bolton MD Unavailable Unavailable Pasniciuc, Puja Bolton MD Unavailable Unavailable Pasniciuc, Puja Bolton MD Unavailable Unavailable Pasniciuc, Puja Bolton MD Unavailable Unavailable Pasniciuc, Puja Bolton MD Unavailable Unavailable Pasniciuc, I Che DIAZ Unavailable Unavailable Pasniciuc, I Che MD Unavailable Unavailable Pasniciuc, I Che MD Unavailable Unavailable Pasniciuc, I Hce MD Unavailable Unavailable Pasniciuc, I Che MD Unavailable Unavailable Pasniciuc, I Che MD Unavailable Unavailable Pasniciuc, I Che MD Unavailable Unavailable Pasniciuc, I Che MD Unavailable Unavailable Pasniciuc, I Che MD Unavailable Unavailable Pasniciuc, I Che MD Unavailable Unavailable Pasniciuc, I Che MD Unavailable Unavailable Pasniciuc, I Che MD Unavailable Unavailable Pasniciuc, I Che MD Unavailable Unavailable Pasniciuc, I Che MD Unavailable Unavailable Pasniciuc, I Che MD Unavailable Unavailable Pasniciuc, I Che MD Unavailable Unavailable Pasniciuc, I Che MD Unavailable Unavailable Pasniciuc, I Che MD Unavailable Unavailable Pasniciuc, I Che MD Unavailable Unavailable Pasniciuc, I Che MD Unavailable Unavailable Pasniciuc, I Che MD Unavailable Unavailable Pasniciuc, I Che MD Unavailable Unavailable Pasniciuc, I Che DIAZ Unavailable Unavailable Pasniciuc, I Che DIAZ Unavailable Unavailable Pasniciuc, I Che MD Unavailable Unavailable Pasniciuc, I Che MD Unavailable Unavailable Pasniciuc, I Che MD Unavailable Unavailable Pasniciuc, I Che MD Unavailable Unavailable Pasniciuc, I Che MD Unavailable Unavailable Pasniciuc, I Che MD Unavailable Unavailable Pasniciuc, I Che MD Unavailable Unavailable Pasniciuc, I Che MD Unavailable Unavailable Pasniciuc, I Che MD Unavailable Unavailable Pasniciuc, I Che MD Unavailable Unavailable Re-disclosure Warning The records that [...] is protected by Article 27-F of the [facility] Public Health law. If you continue you may have access to information: Regarding HIV / AIDS; Provided by facilities licensed or operated by the [facility] Office of Mental Health; or Provided by the [facility] Office for People With Developmental Disabilities. If such information is present, then the following [facility] mandated warning applies: This information has [...] law may result in a fine or half-way sentence or both. A general authorization for the release of medical or other information is NOT sufficient authorization for further disc losure. Family History Family Member Name Family Member Gender Family Member Status Date o f Status Description Data Source(s) Unknown Female Problem (finding) 10/11/2019 12:00:00 AM EDT [facility] ([facility]) Unknown Female Problem (finding) 10/11/2019 12:00:00 AM EDT [facility] ([facility]) Encounters Encounter Providers Location Date Indications Data Source(s ) JARETH Back-BC: [address] [place] [address], Ph. Attender: Marilee Cruz [facility] 11/29/2020 12:00:00 AM EDT [facility]) LALA Falcon: [address], [place] [address], Ph. Attender: SUKHWINDER SMALLWOOD [facility] Medical 05/22/2020 12:00:00 AM EST [facility] ([facility]) LALA Falcon: [address], [place] [address], Ph. Attender: SUKHWINDER SMALLWOOD [facility] Medical 05/22/2020 12:00:00 AM EST [facility] ([facility]) Robson Beavers RPA-C: [address], [place] [address], Ph. Att[facility]: [facility] 03/06/2020 12:00:00 AM EST [facility] ([facility]) Robson Beavers RPA-C: [address], [place] [address], Ph. Attender: [facility] Medical 03/06/2020 12:00:00 AM EST [facility] ([facility]) Robson Beavers RPA-C: [address], [place] [address], Ph. Attender: [facility] 03/06/2020 12:00:00 AM EST [facility] ([facility]) Psychiatric Diagnostic Evaluation (Non-Medical) Attender: Andreas [facility] 01/27/2020 12:00:00 PM EDT - 01/27/2020 12:00:00 PM EDT [facility] ([facility]) Attender: Telly Price 01/27/2020 12:00:00 AM EDT [facility] ([facility]) Extended Individual Psychotherapy - 45 min Attender: [facility] 01/12/2020 09:00:00 AM EDT - 01/12/2020 09:00:00 AM EDT [facility] ([facility]) [facility] 01/12/2020 12:00:00 AM EDT [facility] ([facility]) OutpatientOFFICE/OUTPATIENT VISIT, EST Attender: Che mcginnis MD [facility] 12/13/2019 03:40:00 PM EDT - 12/13/2019 03:40:00 PM ED T Plica syndrome, right kneePain [facility] ([facility]) Plica syndrome, right knee Pain Immunizations Vaccine Date Status Description Data Source(s) COVID-19 VACCINE Moderna 10/04/2020 12:00:00 AM EDT completed [place] Vaccine Series Complete: NOThis Data was Submitted to [facility] Via Somewhere. Medications Medication Brand Name Start Date Product Form Dose Route Admi nistrative Instructions Pharmacy Instructions Status Indications Reaction Description Data Source(s) Cephalexin 500 MG Oral Capsule CEPHALEXIN 02/07/2021 12:00:00 AM EDT capsule 28 TAKE TWO CAPSULES BY MOUTH EVERY 12 HOURS FOR 7 DAYS T RADHA TWO CAPSULES BY MOUTH EVERY 12 HOURS FOR 7 DAYS SOLD: 02/07/2021 [facility] Hydrocortisone 10 MG/ML / Neomycin 3.5 M G/ML / Polymyxin B 08337 UNT/ML Otic Suspension 3.5-10,000-1 mg/mL-unit/mL-% NEOMYCIN/POLYMYXIN B/HYDROCORT 12/09/2020 12:00:00 AM EDT drops,suspension 10 INST ILL 3 DROPS INTO THE RIGHT EAR FOUR TIMES A DAY FOR 7 DAYS INSTILL 3 DROPS INTO THE RIGHT EAR FOUR TIMES A DAY FOR 7 DAYS SOLD: 12/09/2020 [facility] Triamcinolone Acetonide 1 MG/ML Topical Cream 0.1 % TRIAMCIN OLONE ACETONIDE 11/29/2020 12:00:00 AM EDT cream 15 APPLY A THIN LAYER TO THE AFFECTED AREA(S) TWO TIMES A DAY (HANDS,ARMS, LEGS, BACK AND THIGH) APPLY A THIN LAYER TO THE AFFECTED AREA(S) TWO TIMES A DAY (HANDS,ARMS, LEGS, BACK AND THIGH) SOLD: 12/02/2020 [facility] Triamcinolone Acetonide 1 MG/ML Topical Cream 0.1 % TRIAMCIN OLONE ACETONIDE 11/29/2020 12:00:00 AM EDT cream 15 APPLY A THIN LAYER TO THE AFFECTED AREA(S) TWO TIMES A DAY (HANDS,ARMS, LEGS, BACK AND THIGH) APPLY A THIN LAYER TO THE AFFECTED AREA(S) TWO TIMES A DAY (HANDS,ARMS, LEGS, BACK AND THIGH) SOLD: 01/03/2021 [facility] Triamcinolone Acetonide 1 MG/ML Topical Cream 0.1 % TRIAMCIN OLONE ACETONIDE 11/29/2020 12:00:00 AM EDT cream 15 APPLY A THIN LAYER TO THE AFFECTED AREA(S) TWO TIMES A DAY (HANDS,ARMS, LEGS, BACK AND THIGH) APPLY A THIN LAYER TO THE AFFECTED AREA(S) TWO TIMES A DAY (HANDS,ARMS, LEGS, BACK AND THIGH) SOLD: 01/30/2021 [facility] Triamcinolone Acetonide 1 MG/ML Topical Cream 0.1 % TRIAMCIN OLONE ACETONIDE 11/29/2020 12:00:00 AM EDT cream 15 APPLY A THIN LAYER TO THE AFFECTED AREA(S) TWO TIMES A DAY (HANDS,ARMS, LEGS, BACK AND THIGH) APPLY A THIN LAYER TO THE AFFECTED AREA(S) TWO TIMES A DAY (HANDS,ARMS, LEGS, BACK AND THIGH) SOLD: 12/02/2020 [facility] Triamcinolone Acetonide 1 MG/ML Topical Cream 0.1 % TRIAMCIN OLONE ACETONIDE 11/29/2020 12:00:00 AM EDT cream 15 APPLY A THIN LAYER TO THE AFFECTED AREA(S) TWO TIMES A DAY (HANDS,ARMS, LEGS, BACK AND THIGH) APPLY A THIN LAYER TO THE AFFECTED AREA(S) TWO TIMES A DAY (HANDS,ARMS, LEGS, BACK AND THIGH) SOLD: 12/08/2020 [facility] Triamcinolone Acetonide 1 MG/ML Topical Cream 0.1 % TRIAMCIN OLONE ACETONIDE 11/29/2020 12:00:00 AM EDT cream 15 APPLY A THIN LAYER TO THE AFFECTED AREA(S) TWO TIMES A DAY (HANDS,ARMS, LEGS, BACK AND THIGH) APPLY A THIN LAYER TO THE AFFECTED AREA(S) TWO TIMES A DAY (HANDS,ARMS, LEGS, BACK AND THIGH) SOLD: 02/07/2021 [facility] 20 mg 11/29/2020 12:00:00 AM EDT tablet 5 TAKE ONE TABLET BY MOUTH EVERY DAY FOR 5 DAYS TAKE ONE TABLET BY MOUTH EVERY DAY FOR 5 DAYS SOLD: 11/29/2020 [facility] 200 mg 06/01/2020 12:00:00 AM EST tablet 6 TAKE ONE TABLET BY MOUTH EVERY 8 HOURS TAKE ONE TABLET BY MOUTH EVERY 8 HOURS SOLD: 06/01/2020 [facility] 100 mg 06/01/2020 12:00:00 AM EST capsule 10 TAKE ONE CAPSULE BY MOUTH TWICE A DAY TAKE ONE CAPSULE BY MOUTH TWICE A DAY SOLD: 06/01/2020 [facility] 25 mg 03/06/2020 12:00:00 AM [...] ONCE A DAY SOLD: 03/07/2020 [facility] Prednisone 5 MG Oral Tablet prednisone 5 mg tablet prednison e 5 mg tablet 10/11/2019 12:00:00 AM EDT completed take 2 tablets in am and one in pm for 5 days; 1 tablet BID for 5 days; 1 tablet in am for 5 days. [facility] ([facility]) NITROFURANTOIN, MACROCRYSTALS 25 MG / Ni trofurantoin, Monohydrate 75 MG Oral Capsule nitrofurantoin monohydrate/macrocrystals 100 mg capsule TAKE ONE CAPSULE BY MOUTH TWICE A DAY nitrofurantoin monohydrate/macrocrystals 100 mg capsule TAKE ONE CAPSULE BY MOUTH TWICE A DAY completed nitrofurantoin, macrocrystals 25 MG / nitrofurantoin, monohydrate 75 MG Oral Capsule [facility] ([facility]) Phenazopyridine hydrochloride 200 MG Ora l Tablet phenazopyridine 200 mg tablet TAKE ONE TABLET BY MOUTH EVERY 8 HOURS phenazopyridine 200 mg tablet TAKE ONE TABLET BY MOUTH EVERY 8 HOURS complete d phenazopyridine hydrochloride 200 MG Oral Tablet [facility] ([facility]) Hydrocortisone 10 MG/ML / Neomycin 3.5 M G/ML / Polymyxin B 53715 UNT/ML Otic Suspension rghlvxdh-azbvezmjj-dypsyhuaz 3.5 mg-10,000 unit/mL-1 % ear drops,susp mrfecdgg-hcdcgyjvi-qwqkwaytt 3.5 mg-10,000 unit/mL-1 % ear drops,susp completed hydrocortisone 1 0 MG/ML / neomycin 3.5 MG/ML / polymyxin B 08514 UNT/ML Otic Suspension [facility] ([facility]) Prednisone 5 MG Oral Tablet prednisone 5 [...] completed prednisone 5 MG Oral Tablet [facility] ([facility]) Prednisone 5 MG Oral Tablet prednisone 5 [...] completed prednisone 5 MG Oral Tablet [facility] ([facility]) Cefuroxime 500 MG Oral Tablet cefuroxime axetil 500 mg tablet TAKE 1 TABLET BY MOUTH EVERY 12 HOURS FOR 10 DAYS cefuroxime axetil 500 mg tablet TAKE 1 T ABLET BY MOUTH EVERY 12 HOURS FOR 10 DAYS co mpleted cefuroxime 500 MG Oral Tablet [facility] ([facility]) Prednisone 5 MG Oral Tablet prednisone 5 [...] completed prednisone 5 MG Oral Tablet [facility] ([facility]) Cefuroxime 500 MG Oral Tablet cefuroxime axetil 500 mg tablet TAKE 1 TABLET BY MOUTH EVERY 12 HOURS FOR 10 DAYS cefuroxime axetil 500 mg tablet TAKE 1 T ABLET BY MOUTH EVERY 12 HOURS FOR 10 DAYS co mpleted cefuroxime 500 MG Oral Tablet [facility] ([facility]) Hydroxyzine Hydrochloride 25 MG Oral Tab let hydroxyzine HCl 25 mg tablet TAKE ONE TABLET BY MOUTH AT BEDTIME hydroxyzine HCl 25 mg tablet TAKE ONE TA BLET BY MOUTH AT BEDTIME completed hydroxyzine hydrochloride 25 MG Oral Tablet [facility] ([facility]) Sumatriptan 25 MG Oral Tablet sumatripta n 25 mg tablet TAKE 1 TABLET BY MOUTH AT HEADACHE ONSET REPEAT WITH 1 TABLET IF HEADACHE PERSIST AFTER 2 HOURS MAXIMUM DAILY DOSE 2 sumatriptan 25 mg tablet TAKE 1 TABLET B Y MOUTH AT HEADACHE ONSET REPEAT WITH 1 TABLET IF HEADACHE PERSIST AFTER 2 HOURS MAXIMUM DAILY DOSE 2 completed sumatriptan 25 MG Oral Tablet [facility] ([facility]) Hydrocortisone 10 MG/ML / Neomycin 3.5 M G/ML / Polymyxin B 10556 UNT/ML Otic Suspension ujgjmkgk-ueilaksjc-ouuanomzp 3.5 mg-10,000 unit/mL-1 % ear drops,susp ssjfgpck-jekrfajve-mlwldnmnb 3.5 mg-10,000 unit/mL-1 % ear drops,susp completed hydrocortisone 1 0 MG/ML / neomycin 3.5 MG/ML / polymyxin B 57477 UNT/ML Otic Suspension [facility] ([facility]) Hydrocortisone 10 MG/ML / Neomycin 3.5 M G/ML / Polymyxin B 09945 UNT/ML Otic Suspension sbcyzlyc-fygqaeodw-mgizyyoyv 3.5 mg-10,000 unit/mL-1 % ear drops,susp nnozdqvu-ptxzrckgv-vsenjvups 3.5 mg-10,000 unit/mL-1 % ear drops,susp completed hydrocortisone 1 0 MG/ML / neomycin 3.5 MG/ML / polymyxin B 15819 UNT/ML Otic Suspension [facility] ([facility]) Hydroxyzine Hydrochloride 25 MG Oral Tab let hydroxyzine HCl 25 mg tablet TAKE ONE TABLET BY MOUTH AT BEDTIME hydroxyzine HCl 25 mg tablet TAKE ONE TA BLET BY MOUTH AT BEDTIME completed hydroxyzine hydrochloride 25 MG Oral Tablet [facility] ([facility]) Cefuroxime 500 MG Oral Tablet cefuroxime axetil 500 mg tablet TAKE 1 TABLET BY MOUTH EVERY 12 HOURS FOR 10 DAYS cefuroxime axetil 500 mg tablet TAKE 1 T ABLET BY MOUTH EVERY 12 HOURS FOR 10 DAYS co mpleted cefuroxime 500 MG Oral Tablet [facility] ([facility]) Insurance Providers Payer name Policy type / Coverage type Policy ID Covered republican ID Covered republican's relationship to ellis Policy Ellis Plan Information [facility] [id number] SP [id number] Managed Care - [facility] [id number] S [id number] Medicaid S [id number] S [id number] Managed Care [facility] Community Plan P [id number] S [id number] Managed Care - Community Plan [employer] P [id number] S [id number] Medicaid S [id number] S [id number] [employer] [place] [employer] UNAVAILABLE UNAVAILABLE [employer] [place] [employer] [id number] SP [id number] HMO BLUE [id number] SP [id number] HMO BLUE [id number] SP [id number] [employer] P [id number] S [id number] UNHC COMMUNITY PLAN MCDHMO [id number] SP [id number] MEDICAID [id number] SP [id number] [facility](MCA[facility]) O [id number] S [id number] MEDICAID M [id number] S [id number] UN[employer] COMMUNITY PLAN MCDO [id number] SP [id number] [place] [place] [place] [employer] [id number] SP [id number] Problems, Conditions, and Diagnoses Code Display Name Description Problem Type Effective Dates Data Source(s) F33.1 Major depressive disorder, recurrent, mo derate Major Depressive Disorder, Recurrent episode, Moderate Condition 01/27/2020 12:00:00 AM EDT [facility] ([facility]) Surgeries/Procedures Procedure Description Date Indications Data Source(s) Psychiatric Diagnostic Evaluation (Non-Medical) 01/27/2020 12:00:00 AM EDT - 01/27/2020 12:00:00 AM EDT [facility] ([facility]) Psychiatric Diagnostic Evaluation (Non-Medical) 2019 12:00:00 AM EDT [facility] ([facility]) Extended Individual Psychotherapy - 45 min 01/12/2020 12:00:00 AM EDT - 01/12/2020 12:00:00 AM EDT [facility] ([facility]) Extended Individual Psychotherapy - 45 min 0 12:00:00 AM EDT [facility] ([facility]) OFFICE/OUTPATIENT VISIT, EST 12/13/2019 12:00:00 AM EDT - 12/13/2019 12:00:00 AM EDT [facility] ([facility]) Results ID Date Data Source [id number] 01/15/2021 12:00:00 AM EDT [facility] Name Value Range Interpretation Code Description Data Genevieve rce(s) Supporting Document(s) SARS coronavirus 2 Ag Negative [facility] This lab was ordered by [facility] and reported by [facility]. ID Date Data Source [id number] 12/11/2020 12:00:00 AM EDT [facility] Name Value Range Interpretation Code Description Data Genevieve rce(s) Supporting Document(s) SARS coronavirus 2 Ag Negative [facility] This lab was ordered by [facility] and reported by [facility]. ID Date Data Source [id number] 10/31/2020 12:00:00 AM EDT [facility] Name Value Range Interpretation Code Description Data Genevieve rce(s) Supporting Document(s) SARS coronavirus 2 Ag Negative [facility] This lab was ordered by [facility] and reported by [facility]. ID Date Data Source [id number] 10/10/2020 12:00:00 AM EDT [facility] Name Value Range Interpretation Code Description Data Genevieve rce(s) Supporting Document(s) SARS coronavirus 2 Ag Negative [facility] This lab was ordered by [facility] and reported by [facility]. ID Date Data Source [id number] 10/03/2020 01:52:00 PM EDT [facility] Name Value Range Interpretation Code Description Data Genevieve rce(s) Supporting Document(s) SARS-CoV-2 (COVID-19) RNA [Presence] in Respiratory specimen by YULIYA with probe detection Not Detected [facility] This lab was ordered by [facility] and reported by [employer] ID Date Data Source [id number] 09/26/2020 01:38:00 PM EDT [facility] Name Value Range Interpretation Code Description Data Genevieve rce(s) Supporting Document(s) SARS-CoV-2 (COVID-19) RNA [Presence] in Respiratory specimen by YULIYA with probe detection Not Detected [facility] This lab was ordered by [facility] and reported by [employer] ID Date Data Source [id number] 09/19/2020 01:35:00 PM EDT [facility] Name Value Range Interpretation Code Description Data Genevieve rce(s) Supporting Document(s) SARS-CoV-2 (COVID-19) RNA [Presence] in Respiratory specimen by YULIYA with probe detection Not Detected [facility] This lab was ordered by [facility] and reported by [employer]. ID Date Data Source [id number] 09/12/2020 10:47:00 AM EDT [facility] Name Value Range Interpretation Code Description Data Genevieve rce(s) Supporting Document(s) SARS-CoV-2 (COVID-19) RNA [Presence] in Respiratory specimen by YULIYA with probe detection Not Detected [facility] This lab was ordered by [facility] and reported by [employer]. ID Date Data Source [id number] 09/05/2020 09:11:00 AM EDT [facility] Name Value Range Interpretation Code Description Data Genevieve rce(s) Supporting Document(s) SARS-CoV-2 (COVID-19) RNA [Presence] in Respiratory specimen by YULIYA with probe detection Not Detected [facility] This lab was ordered by [facility] and reported by [employer]. ID Date Data Source [id number] 08/29/2020 10:13:00 AM EDT [facility] Name Value Range Interpretation Code Description Data Genevieve rce(s) Supporting Document(s) SARS-CoV-2 (COVID-19) RNA [Presence] in Respiratory specimen by YULIYA with probe detection Not Detected [facility] This lab was ordered by [facility] and reported by [employer]. ID Date Data Source [id number] 08/22/2020 01:37:00 PM EDT [facility] Name Value Range Interpretation Code Description Data Genevieve rce(s) Supporting Document(s) SARS-CoV-2 (COVID-19) RNA [Presence] in Respiratory specimen by YULIYA with probe detection Not Detected [facility] This lab was ordered by [facility] and reported by [employer]. ID Date Data Source [id number] 08/15/2020 10:40:00 AM EDT [facility] Name Value Range Interpretation Code Description Data Genevieve rce(s) Supporting Document(s) SARS-CoV-2 (COVID-19) RNA [Presence] in Respiratory specimen by YULIYA with probe detection Not Detected [facility] This lab was ordered by [facility] and reported by [employer]. ID Date Data Source [id number] 08/15/2020 12:00:00 AM EDT [facility] Name Value Range Interpretation Code Description Data Genevieve rce(s) Supporting Document(s) SARS coronavirus 2 Ag Negative [facility] This lab was ordered by [facility] and reported by [facility]. ID Date Data Source [id number] 08/08/2020 08:32:00 AM EDT [facility] Name Value Range Interpretation Code Description Data Genevieve rce(s) Supporting Document(s) SARS-CoV-2 (COVID-19) RNA [Presence] in Respiratory specimen by YULIYA with probe detection Not Detected [facility] This lab was ordered by [facility] and reported by [employer]. ID Date Data Source [id number] 08/01/2020 09:03:00 AM EDT [facility] Name Value Range Interpretation Code Description Data Genevieve rce(s) Supporting Document(s) SARS-CoV-2 (COVID-19) RNA [Presence] in Respiratory specimen by YULIYA with probe detection Not Detected [facility] This lab was ordered by [facility] and reported by [employer]. ID Date Data Source [id number] 07/25/2020 12:50:00 PM EDT [facility] Name Value Range Interpretation Code Description Data Genevieve rce(s) Supporting Document(s) SARS-CoV-2 (COVID-19) RNA [Presence] in Respiratory specimen by YULIYA with probe detection Not Detected [facility] This lab was ordered by [facility] and reported by [employer]. ID Date Data Source [id number] 07/18/2020 10:33:00 AM EDT [facility] Name Value Range Interpretation Code Description Data Genevieve rce(s) Supporting Document(s) SARS-CoV-2 (COVID-19) RNA [Presence] in Respiratory specimen by YULIYA with probe detection Not Detected [facility] This lab was ordered by [facility] and reported by [employer]. ID Date Data Source [id number] 07/11/2020 10:37:00 AM EDT [facility] Name Value Range Interpretation Code Description Data Genevieve rce(s) Supporting Document(s) SARS-CoV-2 (COVID-19) RNA [Presence] in Respiratory specimen by YULIYA with probe detection Not Detected [facility] This lab was ordered by [facility] and reported by [employer] ID Date Data Source [id number] 07/04/2020 03:00:00 PM EDT [facility] Name Value Range Interpretation Code Description Data Genevieve rce(s) Supporting Document(s) SARS coronavirus 2 RNA Not Detected [facility] This lab was ordered by [facility] [facility] and reported by [facility]. ID Date Data Source [id number] 06/27/2020 12:00:00 PM EDT [facility] Name Value Range Interpretation Code Description Data Genevieve rce(s) Supporting Document(s) SARS coronavirus 2 RNA Not Detected [facility] This lab was ordered by [facility] and reported by [facility]. ID Date Data Source [id number] 06/20/2020 01:45:00 PM EST [facility] Name Value Range Interpretation Code Description Data Genevieve rce(s) Supporting Document(s) SARS coronavirus 2 RNA Not Detected [facility] [place] This lab was ordered by [facility] and reported by [facility]. ID Date Data Source [id number] 06/13/2020 01:00:00 PM EST [facility] Name Value Range Interpretation Code Description Data Genevieve rce(s) Supporting Document(s) SARS coronavirus 2 RNA Not Detected [facility] [place] This lab was ordered by [facility] and reported by [facility]. ID Date Data Source [id number] 06/06/2020 12:30:00 PM EST [facility] Name Value Range Interpretation Code Description Data Genevieve rce(s) Supporting Document(s) SARS coronavirus 2 RNA Not Detected [facility] [place] This lab was ordered by [facility] and reported by [facility]. ID Date Data Source [id number] 05/30/2020 12:50:00 PM EST [facility] Name Value Range Interpretation Code Description Data Genevieve rce(s) Supporting Document(s) SARS coronavirus 2 RNA Not Detected [facility] [place] This lab was ordered by [facility] and reported by [facility]. ID Date Data Source [id number] 05/23/2020 02:00:00 PM EST [facility] Name Value Range Interpretation Code Description Data Genevieve rce(s) Supporting Document(s) SARS coronavirus 2 RNA Not Detected [facility] This lab was ordered by [facility] and reported by [facility]. ID Date Data Source [id number] 05/16/2020 10:30:00 AM EST [facility] Name Value Range Interpretation Code Description Data Genevieve rce(s) Supporting Document(s) SARS coronavirus 2 RNA Not Detected [facility] This lab was ordered by [facility] and reported by [facility]. ID Date Data Source [id number] 05/09/2020 02:00:00 PM EST [facility] Name Value Range Interpretation Code Description Data Genevieve rce(s) Supporting Document(s) SARS coronavirus 2 RNA Not Detected [facility] This lab was ordered by [facility] and reported by [facility]. ID Date Data Source [id number] 05/02/2020 10:30:00 AM EST [facility] Name Value Range Interpretation Code Description Data Genevieve rce(s) Supporting Document(s) SARS coronavirus 2 RNA Not Detected [facility] This lab was ordered by [facility] and reported by [facility]. ID Date Data Source [id number] 04/25/2020 03:00:00 PM EST [facility] Name Value Range Interpretation Code Description Data Genevieve rce(s) Supporting Document(s) SARS coronavirus 2 RNA Not Detected [facility] This lab was ordered by [facility] and reported by [facility]. ID Date Data Source [id number] 04/18/2020 01:00:00 PM EST [facility] Name Value Range Interpretation Code Description Data Genevieve rce(s) Supporting Document(s) SARS coronavirus 2 RNA Not Detected [facility] This lab was ordered by [facility] and reported by [facility]. ID Date Data Source [id number] 04/11/2020 03:05:00 PM EST [facility] Name Value Range Interpretation Code Description Data Genevieve rce(s) Supporting Document(s) SARS coronavirus 2 RNA [facility] This lab was ordered by [facility] and reported by [facility]. ID Date Data Source [id number] 04/04/2020 02:00:00 PM EST [facility] Name Value Range Interpretation Code Description Data Genevieve rce(s) Supporting Document(s) SARS coronavirus 2 RNA [facility] This lab was ordered by [facility] and reported by [facility]. ID Date Data Source [id number] 03/28/2020 09:15:00 AM EST [facility] Name Value Range Interpretation Code Description Data Genevieve rce(s) Supporting Document(s) SARS coronavirus 2 RNA [facility] This lab was ordered by [facility] and reported by [facility]. ID Date Data Source [id number] 03/21/2020 01:05:00 PM EST [facility] Name Value Range Interpretation Code Description Data Genevieve rce(s) Supporting Document(s) SARS coronavirus 2 RNA [facility] This lab was ordered by [facility] and reported by [facility]. ID Date Data Source [id number] 03/16/2020 08:39:00 AM EST [facility] Name Value Range Interpretation Code Description Data Genevieve rce(s) Supporting Document(s) SARS coronavirus 2 RNA [facility] This lab was ordered by [facility] and reported by [facility]. ID Date Data Source [id number] 03/07/2020 09:00:00 AM EST [facility] Name Value Range Interpretation Code Description Data Genevieve rce(s) Supporting Document(s) SARS coronavirus 2 RNA [facility] This lab was ordered by [facility] and reported by [facility]. ID Date Data Source [id number] 02/29/2020 10:30:00 AM EST [facility] Name Value Range Interpretation Code Description Data Genevieve rce(s) Supporting Document(s) SARS coronavirus 2 RNA [facility] This lab was ordered by [facility] and reported by [facility]. ID Date Data Source [id number] 02/22/2020 12:00:00 PM EST [facility] Name Value Range Interpretation Code Description Data Genevieve rce(s) Supporting Document(s) SARS coronavirus 2 RNA [facility] This lab was ordered by [facility] and reported by [facility]. ID Date Data Source [id number] 02/15/2020 10:38:00 AM EST [facility] Name Value Range Interpretation Code Description Data Genevieve rce(s) Supporting Document(s) SARS coronavirus 2 RNA [facility] This lab was ordered by [facility] and reported by [facility]. ID Date Data Source [id number] 02/08/2020 02:00:00 PM EDT [facility] Name Value Range Interpretation Code Description Data Genevieve rce(s) Supporting Document(s) SARS coronavirus 2 RNA [facility] This lab was ordered by [facility] and reported by [facility]. ID Date Data Source [id number] 02/01/2020 02:25:00 PM EDT [facility] Name Value Range Interpretation Code Description Data Genevieve rce(s) Supporting Document(s) SARS coronavirus 2 RNA [facility] This lab was ordered by [facility] and reported by [facility]. ID Date Data Source [id number] 01/25/2020 10:35:00 AM EDT [facility] Name Value Range Interpretation Code Description Data Genevieve rce(s) Supporting Document(s) SARS coronavirus 2 RNA [facility] This lab was ordered by [facility] and reported by [facility]. ID Date Data Source [id number] 01/18/2020 10:00:00 AM EDT [facility] Name Value Range Interpretation Code Description Data Genevieve rce(s) Supporting Document(s) SARS coronavirus 2 RNA [facility] This lab was ordered by [facility] and reported by [facility]. ID Date Data Source [id number] 01/11/2020 09:00:00 AM EDT [facility] Name Value Range Interpretation Code Description Data Genevieve rce(s) Supporting Document(s) SARS coronavirus 2 RNA [facility] This lab was ordered by [facility] and reported by [facility]. ID Date Data Source [id number] 01/06/2020 10:00:00 AM EDT [facility] Name Value Range Interpretation Code Description Data Genevieve rce(s) Supporting Document(s) SARS coronavirus 2 RNA [facility] This lab was ordered by [facility] and reported by [facility]. ID Date Data Source [id number] 12/28/2019 11:05:00 AM EDT [facility] Name Value Range Interpretation Code Description Data Genevieve rce(s) Supporting Document(s) SARS coronavirus 2 RNA [facility] This lab was ordered by [facility] and reported by [facility]. ID Date Data Source [id number] 12/21/2019 12:00:00 PM EDT [facility] Name Value Range Interpretation Code Description Data Genevieve rce(s) Supporting Document(s) SARS coronavirus 2 RNA [facility] This lab was ordered by [facility] and reported by [facility]. ID Date Data Source [id number] 12/16/2019 11:00:00 AM EDT [facility] Name Value Range Interpretation Code Description Data Genevieve rce(s) Supporting Document(s) SARS coronavirus 2 RNA [facility] This lab was ordered by [facility] and reported by [facility]. Procedure Social History Code Duration Value Status Description Data Source(s ) Smoking 01/27/2020 12:00:00 AM EDT Unknown if ever smoked comp leted Unknown if ever smoked [facility] ([facility] Smoking 01/12/2020 12:00:00 AM EDT Unknown if ever smoked comp leted Unknown if ever smoked [facility] ([facility]) Caffeine Use Details 12/13/2019 12:00:00 AM EDT completed [facility] ([facility]) 12/13/2019 12:00:00 AM EDT Ex-cigarette smoker completed Ex-cigarette smoker [facility] ([facility]) Smoking 12/13/2019 12:00:00 AM EDT Former smoker completed Former smoker [facility] ([facility]) Vital Signs ID Date Data Source UNK Name Value Range Interpretation Code Description Data Source(s) Diastolic blood pressure 84 mm[Hg] 84 mm[Hg] [facility] ([facility]) Body height 66 [in_i] 66 [in_i] [facility] ([facility]) Body mass index (BMI) [Ratio] 29.9 kg/m2 29.9 k g/m2 [facility] ([facility]) Systolic blood pressure 132 mm[Hg] 132 mm[Hg] A [facility] ([facility]) Body weight 2962 [oz_av] 2962 [oz_av] [facility] ([facility]) Diastolic blood pressure 93 mm[Hg] 93 mm[Hg] [facility] ([facility]) Body height 66 [in_i] 66 [in_i] [facility] ([facility]) Systolic blood pressure 153 mm[Hg] 153 mm[Hg] [facility] Diastolic blood pressure 93 mm[Hg] 93 mm[Hg] [facility] ([facility]) Body height 66 [in_i] 66 [in_i] [facility] ([facility]) Systolic blood pressure 153 mm[Hg] 153 mm[Hg] A THENA ([facility]) Diastolic blood pressure 85 mm[Hg] 85 mm[Hg] [facility] ([facility]) Body height 66 [in_i] 66 [in_i] [facility] ([facility]) Body mass index (BMI) [Ratio] 29.6 kg/m2 29.6 k g/m2 [facility] ([facility]) Systolic blood pressure 127 mm[Hg] 127 mm[Hg] A [facility] ([facility]) Body weight 2934.4 [oz_av] 2934.4 [oz_av] ATHEN A ([facility]) Diastolic blood pressure 85 mm[Hg] 85 mm[Hg] [facility] ([facility]) Body height 66 [in_i] 66 [in_i] [facility] ([facility]) Body mass index (BMI) [Ratio] 29.6 kg/m2 29.6 k g/m2 [facility] ([facility]) Systolic blood pressure 127 mm[Hg] 127 mm[Hg] A THENA ([facility]) Body weight 2934.4 [oz_av] 2934.4 [oz_av] ATHEN A ([facility]) Diastolic blood pressure 85 mm[Hg] 85 mm[Hg] [facility] ([facility]) Body height 66 [in_i] 66 [in_i] [facility] ([facility]) Body mass index (BMI) [Ratio] 29.6 kg/m2 29.6 k g/m2 [facility] ([facility]) Systolic blood pressure 127 mm[Hg] 127 mm[Hg] A [facility]NA ([facility]) Body weight 2934.4 [oz_av] 2934.4 [oz_av] ATHEN A ([facility]) Body height 165.74 cm 165.74 cm [facility]) Body weight 83.461 kg 83.461 kg [facility] ([facility]) Systolic blood pressure 120 mm[Hg] 120 mm[Hg] N [facility] ([facility]) Diastolic blood pressure 82 mm[Hg] 82 mm[Hg] [facility] ([facility]) Body mass index (BMI) [Ratio] 30.38 kg/m2 Overweight 30.38 kg/m2 [facility] ([facility]) Patient Treatment Plan of Care Planned Activity Planned Date Details Description Data Source (s) Prednisone 5 MG Oral Tablet 10/11/2019 12:00:00 AM EDT [facility] ([facility]) Sumatriptan 25 MG Oral Tablet [facility] ([facility]) Prednisone 5 MG Oral Tablet [facility] ([facility]) Phenazopyridine hydrochloride 200 MG Oral Tablet [facility] ([facility]) NITROFURANTOIN, MACROCRYSTALS 25 MG / Ni trofurantoin, Monohydrate 75 MG Oral Capsule [facility] ([facility]) Hydrocortisone 10 MG/ML / Neomycin 3.5 M G/ML / Polymyxin B 50856 UNT/ML Otic Suspension [facility] ([facility]) Hydroxyzine Hydrochloride 25 MG Oral Tablet [facility] ([facility]) Cefuroxime 500 MG Oral Tablet [facility] ([facility]) Prednisone 5 MG Oral Tablet [facility] ([facility]) Hydrocortisone 10 MG/ML / Neomycin 3.5 M G/ML / Polymyxin B [id number] UNT/ML Otic Suspension [facility] ([facility]) Hydroxyzine Hydrochloride 25 MG Oral Tablet [facility] ([facility]) Cefuroxime 500 MG Oral Tablet [facility] ([facility]) Prednisone 5 MG Oral Tablet [facility] ([facility]) Hydrocortisone 10 MG/ML / Neomycin 3.5 M G/ML / Polymyxin B 76293 UNT/ML Otic Suspension [facility] ([facility]) Cefuroxime 500 MG Oral Tablet [facility] ([facility])
[2021-02-09] MEDS ORDERED: LIDOCAINE 1% MDV 20ML VIAL SC ONE (11:25)
[2021-02-09] MEDS ORDERED: DOXYCYCLINE HYCLATE 100MG TABLET PO ONE (11:25)
[2021-02-09 11:55] LABS: BASO % 0.4 % (0.0-1.0); EOS # 0.2 10^3/uL (0.0-0.5); EOS % 2.3 % (0.0-3.0); HEMATOCRIT 41.4 % (36.0-47.0); HEMOGLOBIN 13.9 g/dl (12.0-15.5); LYMPH # 2.4 10^3/uL (1.5-5.0); MEAN CORPUSCULAR HGB CONC 33.6 g/dl (32.0-36.5); MEAN CORPUSCULAR VOLUME 89.2 fl (80.0-96.0); MONO # 0.4 10^3/uL (0.0-0.8); PLATELET COUNT, AUTOMATED 212 10^3/uL (150-450); RED BLOOD COUNT 4.64 10^6/uL (4.00-5.40); WHITE BLOOD COUNT 10.1 10^3/uL (4.0-10.0)
[2021-02-09] MEDS ORDERED: CEPH500C PO (12:05)
--- OUTSIDE RECORDS SUMMARY | 2021-02-09 12:19 | CCD ---
Author Author [facility] Organization [facility] Address Unknown Phone Unavailable Care Team Providers Care Cuff Slitter Name Role Phone BEAVERS, MICHAEL ROBSON RPA-C [...] ROBSON RPA-C Unavailable Unavailable Anthony, A Marilee RADIO EQUIPMENT REPAIRER Unavailable Unavailable Anthony, A Marilee RADIO EQUIPMENT REPAIRER Unavailable Unavailable Anthony, A Marilee RADIO EQUIPMENT REPAIRER Unavailable Unavailable Anthony, A Marilee RADIO EQUIPMENT REPAIRER Unavailable Unavailable Anthony, A Marilee RADIO EQUIPMENT REPAIRER Unavailable Unavailable Anthony, A Marilee RADIO EQUIPMENT REPAIRER Unavailable Unavailable Anthony, A Marilee RADIO EQUIPMENT REPAIRER Unavailable Unavailable Anthony, A Marilee RADIO EQUIPMENT REPAIRER Unavailable Unavailable Anthony, A Marilee RADIO EQUIPMENT REPAIRER Unavailable Unavailable Anthony, A Marilee RADIO EQUIPMENT REPAIRER Unavailable Unavailable Anthony, A Marilee RADIO EQUIPMENT REPAIRER Unavailable Unavailable Anthony, A Marilee RADIO EQUIPMENT REPAIRER Unavailable Unavailable Anthony, A Marilee RADIO EQUIPMENT REPAIRER Unavailable Unavailable Anthony, A Marilee RADIO EQUIPMENT REPAIRER Unavailable Unavailable Anthony, A Marilee RADIO EQUIPMENT REPAIRER Unavailable Unavailable Anthony, A Marilee RADIO EQUIPMENT REPAIRER Unavailable Unavailable Anthony, A Marilee RADIO EQUIPMENT REPAIRER Unavailable Unavailable Anthony, A Marilee RADIO EQUIPMENT REPAIRER Unavailable Unavailable Anthony, A Marilee RADIO EQUIPMENT REPAIRER Unavailable Unavailable Anthony, A Marilee RADIO EQUIPMENT REPAIRER Unavailable Unavailable Anthony, A Marilee RADIO EQUIPMENT REPAIRER Unavailable Unavailable Anthony, A Marilee RADIO EQUIPMENT REPAIRER Unavailable Unavailable Anthony, A Marilee RADIO EQUIPMENT REPAIRER Unavailable Unavailable Anthony, A Marilee RADIO EQUIPMENT REPAIRER Unavailable Unavailable Anthony, A Marilee RADIO EQUIPMENT REPAIRER Unavailable Unavailable Anthony, A Marilee RADIO EQUIPMENT REPAIRER Unavailable Unavailable Anthony, A Marilee RADIO EQUIPMENT REPAIRER Unavailable Unavailable Anthony, A Marilee RADIO EQUIPMENT REPAIRER Unavailable Unavailable Anthony, A Marilee RADIO EQUIPMENT REPAIRER Unavailable Unavailable Anthony, A Marilee RADIO EQUIPMENT REPAIRER Unavailable Unavailable Anthony, A Marilee RADIO EQUIPMENT REPAIRER Unavailable Unavailable Andreas Priceilpuja Unavailable SMALLWOOD, SUKHWINDER Unavailable Unavailable SMALLWOOD, SUKHWINDER [...] Unavailable Unavailable SMALLWOOD, SUKHWINDER Unavailable Unavailable Pasniciuc, Pjua Bolton MD Unavailable Unavailable Pasniciuc, Puja Bolton [...] is protected by Article 27-F of the [facility] Public Health law. If you continue you may have access to information: Regarding HIV / AIDS; Provided by facilities licensed or operated by the [facility] Office of Mental Health; or Provided by the [facility] Office for People With Developmental Disabilities. If such information is present, then the following [facility] mandated warning applies: This information has been [...] law may result in a fine or intermediate sentence or both. A general authorization for [...] Source(s ) JARETH Back-BC: [address] [place] [address], Ph. Attender: Marilee Cruz [facility] Medical 11/29/2020 12:00:00 AM EDT MIKE [facility]) LALA Falcon: [address], [place] [address], Ph. Attender: SUKHWINDER SMALLWOOD [facility] Medical 05/22/2020 12:00:00 AM EST MIKE ([facility]) LALA Falcon: [address], [place] [address], Ph. Attender: SUKHWINDER SMALLWOOD [facility] Medical 05/22/2020 12:00:00 AM EST MIKE ([facility]) Robson Beavers RPA-C: [address], [place] [address], Ph. Attender: ROBSON GALLEGOSC [facility] Medical 03/06/2020 12:00:00 AM EST MIKE ([facility]) Robson Beavers RPA-C: [address], [place] [address], Ph. Attender: ROBSON REEVES [facility] Medical 03/06/2020 12:00:00 AM EST MIKE ([facility]) Robson Beavers RPA-C: [address], [place] [address], Ph. Attender: ROBSON GALLEGOSC [facility] Medical 03/06/2020 12:00:00 AM EST MIKE ([facility]) Psychiatric Diagnostic Evaluation (Non-Medical) Attender: Andreas [facility] 01/27/2020 12:00:00 PM EDT - 01/27/2020 12:00:00 PM EDT [facility] ([facility]) Attender: Telly Price 01/27/2020 12:00:00 AM EDT [facility] ([facility]) Extended Individual Psychotherapy - 45 min Attender: [facility] 01/12/2020 09:00:00 AM EDT - 01/12/2020 09:00:00 AM EDT [facility] ([facility]) Attender: Andreasilpuja Price 01/12/2020 12:00:00 AM EDT [facility] ([facility]) OFFICE/OUTPATIENT VISIT, ESTOutpatient Attender: Che mcginnis MD [facility] 12/13/2019 03:40:00 PM EDT - 12/13/2019 03:40:00 PM ED T Plica syndrome, right kneePain [facility] ([facility]) Plica syndrome, right knee Pain Immunizations Vaccine Date Status Description Data Source(s) COVID-19 VACCINE Moderna 10/04/2020 12:00:00 AM EDT completed [facility] Vaccine Series Complete: NOThis Data was Submitted to [facility] [employer]. Medications Medication Brand Name Start Date Product [...] Neomycin 3.5 M G/ML / Polymyxin B 93607 UNT/ML Otic Suspension 3.5-10,000-1 mg/mL-unit/mL-% NEOMYCIN/POLYMYXIN B/HYDROCORT [...] nitrofurantoin, monohydrate 75 MG Oral Capsule MIKE ([facility]) Phenazopyridine hydrochloride 200 MG Ora l Tablet phenazopyridine 200 mg tablet TAKE ONE TABLET BY MOUTH EVERY 8 HOURS phenazopyridine 200 mg tablet TAKE ONE TABLET BY MOUTH EVERY 8 HOURS complete d phenazopyridine hydrochloride 200 MG Oral Tablet MIKE ([facility]) Hydrocortisone 10 MG/ML / Neomycin 3.5 M G/ML / Polymyxin B 91373 UNT/ML Otic Suspension akowdulg-wwhgrngwg-wglwgrxoz 3.5 mg-10,000 unit/mL-1 % ear drops,susp kfglhcxc-mshhjqfgs-ypjdpzmse 3.5 mg-10,000 unit/mL-1 % ear drops,susp completed hydrocortisone 1 0 MG/ML / neomycin 3.5 MG/ML / polymyxin B 90448 UNT/ML Otic Suspension MIKE ([facility]) Prednisone 5 MG Oral Tablet prednisone 5 [...] completed prednisone 5 MG Oral Tablet MIKE ([facility]) Prednisone 5 MG Oral Tablet prednisone 5 [...] completed prednisone 5 MG Oral Tablet MIKE ([facility]) Cefuroxime 500 MG Oral Tablet cefuroxime axetil 500 mg tablet TAKE 1 TABLET BY MOUTH EVERY 12 HOURS FOR 10 DAYS cefuroxime axetil 500 mg tablet TAKE 1 T ABLET BY MOUTH EVERY 12 HOURS FOR 10 DAYS co mpleted cefuroxime 500 MG Oral Tablet MIKE ([facility]) Prednisone 5 MG Oral Tablet prednisone 5 [...] completed prednisone 5 MG Oral Tablet MIKE ([facility]) Cefuroxime 500 MG Oral Tablet cefuroxime axetil 500 mg tablet TAKE 1 TABLET BY MOUTH EVERY 12 HOURS FOR 10 DAYS cefuroxime axetil 500 mg tablet TAKE 1 T ABLET BY MOUTH EVERY 12 HOURS FOR 10 DAYS co mpleted cefuroxime 500 MG Oral Tablet MIKE ([facility]) Hydroxyzine Hydrochloride 25 MG Oral Tab let [...] completed sumatriptan 25 MG Oral Tablet MIKE ([facility]) Hydrocortisone 10 MG/ML / Neomycin 3.5 M G/ML / Polymyxin B 74030 UNT/ML Otic Suspension pkaemylu-nwroeksxy-vvlnyvdkq 3.5 mg-10,000 unit/mL-1 % ear drops,susp qfttsgkg-wanxdynve-zcojghwmx 3.5 mg-10,000 unit/mL-1 % ear drops,susp completed hydrocortisone 1 0 MG/ML / neomycin 3.5 MG/ML / polymyxin B 01188 UNT/ML Otic Suspension MIKE ([facility]) Hydrocortisone 10 MG/ML / Neomycin 3.5 M G/ML / Polymyxin B 71718 UNT/ML Otic Suspension nboiutcc-nahnfjkkn-nphsceqqc 3.5 mg-10,000 unit/mL-1 % ear drops,susp ylewijek-arkgeqgao-svlcgtmak 3.5 mg-10,000 unit/mL-1 % ear drops,susp completed hydrocortisone 1 0 MG/ML / neomycin 3.5 MG/ML / polymyxin B 69126 UNT/ML Otic Suspension MIKE ([facility]) Hydroxyzine Hydrochloride 25 MG Oral Tab let hydroxyzine HCl 25 mg tablet TAKE ONE TABLET BY MOUTH AT BEDTIME hydroxyzine HCl 25 mg tablet TAKE ONE TA BLET BY MOUTH AT BEDTIME completed hydroxyzine hydrochloride 25 MG Oral Tablet MIKE ([facility]) Cefuroxime 500 MG Oral Tablet cefuroxime axetil 500 mg tablet TAKE 1 TABLET BY MOUTH EVERY 12 HOURS FOR 10 DAYS cefuroxime axetil 500 mg tablet TAKE 1 T ABLET BY MOUTH EVERY 12 HOURS FOR 10 DAYS co mpleted cefuroxime 500 MG Oral Tablet MIKE ([facility]) Insurance Providers Payer name Policy type / Coverage type Policy ID Covered green party ID Covered green party's relationship to ellis Policy Ellis Plan Information [facility] [id number] SP [id number] Managed Care - [facility] [id number] S [id number] Medicaid S [id number] S [id number] Managed Care [facility] Community Plan P [id number] S [id number] Managed Care - Community Plan [employer] P [id number] S [id number] Medicaid S [id number] S [id number] [employer] [place] [employer] UNAVAILABLE UNAVAILABLE [employer] [place] [employer] [id number] SP [id number] HMO BLUE [id number] SP [id number] HMO BLUE [id number] SP [id number] [employer] P [id number] S [id number] UNHC COMMUNITY PLAN MCDHMO [id number] SP [id number] MEDICAID [id number] SP [id number] [facility](MCAID) O [id number] S [id number] MEDICAID [id number] S [id number] UNHC COMMUNITY PLAN MCDO [id number] SP [id number] [employer] [place] [place] [employer]AN [id number] SP [id number] Problems, Conditions, and Diagnoses Code Display Name Description Problem Type Effective Dates Data Source(s) F33.1 Major depressive disorder, recurrent, mo derate Major Depressive Disorder, Recurrent episode, Moderate Condition 01/27/2020 12:00:00 AM EDT [facility] ([facility]) Surgeries/Procedures Procedure Description Date Indications Data Source(s) Psychiatric Diagnostic Evaluation (Non-Medical) 01/27/2020 12:00:00 AM EDT - 01/27/2020 12:00:00 AM EDT [facility] ([facility]) Psychiatric Diagnostic Evaluation (Non-Medical) 2019 12:00:00 AM EDT [facility] ([facility]) Extended Individual Psychotherapy - 45 min 01/12/2020 12:00:00 AM EDT - 01/12/2020 12:00:00 AM EDT [facility] ([facility]) Extended Individual Psychotherapy - 45 min 0 12:00:00 AM EDT [facility] ([facility]) OFFICE/OUTPATIENT VISIT, EST 12/13/2019 12:00:00 AM EDT - 12/13/2019 12:00:00 AM EDT [facility] ([facility]) Results ID Date Data Source [id number] 01/15/2021 12:00:00 AM EDT [facility] Name Value Range Interpretation Code Description Data Genevieve rce(s) Supporting Document(s) SARS coronavirus 2 Ag Negative [facility] This lab was ordered by [facility] and reported by [facility]. ID Date Data Source [id number] 12/11/2020 12:00:00 AM EDT [facility] Name Value Range Interpretation Code Description Data Genevieve rce(s) Supporting Document(s) SARS coronavirus 2 Ag Negative [facility] This lab was ordered by [facility] and reported by [facility]. ID Date Data Source [id number] 10/31/2020 12:00:00 AM EDT [facility] Name Value Range Interpretation Code Description Data Genevieve rce(s) Supporting Document(s) SARS coronavirus 2 Ag Negative [facility] This lab was ordered by [facility] and reported by [facility]. ID Date Data Source [id number] 10/10/2020 12:00:00 AM EDT [facility] Name Value Range Interpretation Code Description Data Genevieve rce(s) Supporting Document(s) SARS coronavirus 2 Ag Negative [facility] This lab was ordered by [facility] and reported by [facility]. ID Date Data Source [id number] 10/03/2020 01:52:00 PM EDT [facility] Name Value Range Interpretation Code Description Data Genevieve rce(s) Supporting Document(s) SARS-CoV-2 (COVID-19) RNA [Presence] in Respiratory specimen by YULIYA with probe detection Not Detected [facility] This lab was ordered by [facility] and reported by [employer] ID Date Data Source [id number] 09/26/2020 01:38:00 PM EDT [facility] Name Value Range Interpretation Code Description Data Genevieve rce(s) Supporting Document(s) SARS-CoV-2 (COVID-19) RNA [Presence] in Respiratory specimen by YULIYA with probe detection Not Detected [facility] This lab was ordered by [facility] and reported by [employer] ID Date Data Source [id number] 09/19/2020 01:35:00 PM EDT [facility] Name Value Range Interpretation Code Description Data Genevieve rce(s) Supporting Document(s) SARS-CoV-2 (COVID-19) RNA [Presence] in Respiratory specimen by YULIYA with probe detection Not Detected [facility] This lab was ordered by [facility] and reported by [employer]. ID Date Data Source [id number] 09/12/2020 10:47:00 AM EDT [facility] Name Value Range Interpretation Code Description Data Genevieve rce(s) Supporting Document(s) SARS-CoV-2 (COVID-19) RNA [Presence] in Respiratory specimen by YULIYA with probe detection Not Detected [facility] This lab was ordered by [facility] and reported by [employer]. ID Date Data Source [id number] 09/05/2020 09:11:00 AM EDT [facility] Name Value Range Interpretation Code Description Data Genevieve rce(s) Supporting Document(s) SARS-CoV-2 (COVID-19) RNA [Presence] in Respiratory specimen by YULIYA with probe detection Not Detected [facility] This lab was ordered by [facility] and reported by [employer]. ID Date Data Source [id number] 08/29/2020 10:13:00 AM EDT [facility] Name Value Range Interpretation Code Description Data Genevieve rce(s) Supporting Document(s) SARS-CoV-2 (COVID-19) RNA [Presence] in Respiratory specimen by YULIYA with probe detection Not Detected [facility] This lab was ordered by [facility] and reported by [employer]. ID Date Data Source [id number] 08/22/2020 01:37:00 PM EDT [facility] Name Value Range Interpretation Code Description Data Genevieve rce(s) Supporting Document(s) SARS-CoV-2 (COVID-19) RNA [Presence] in Respiratory specimen by YULIYA with probe detection Not Detected [facility] This lab was ordered by [facility] and reported by [employer]. ID Date Data Source [id number] 08/15/2020 10:40:00 AM EDT [facility] Name Value Range Interpretation Code Description Data Genevieve rce(s) Supporting Document(s) SARS-CoV-2 (COVID-19) RNA [Presence] in Respiratory specimen by YULIYA with probe detection Not Detected [facility] This lab was ordered by [facility] and reported by [employer]. ID Date Data Source [id number] 08/15/2020 12:00:00 AM EDT [facility] Name Value Range Interpretation Code Description Data Genevieve rce(s) Supporting Document(s) SARS coronavirus 2 Ag Negative [facility] This lab was ordered by [facility] and reported by [facility]. ID Date Data Source [id number] 08/08/2020 08:32:00 AM EDT [facility] Name Value Range Interpretation Code Description Data Genevieve rce(s) Supporting Document(s) SARS-CoV-2 (COVID-19) RNA [Presence] in Respiratory specimen by YULIYA with probe detection Not Detected [facility] This lab was ordered by [facility] and reported by [employer]. ID Date Data Source [id number] 08/01/2020 09:03:00 AM EDT [facility] Name Value Range Interpretation Code Description Data Genevieve rce(s) Supporting Document(s) SARS-CoV-2 (COVID-19) RNA [Presence] in Respiratory specimen by YULIYA with probe detection Not Detected [facility] This lab was ordered by [facility] and reported by [employer]. ID Date Data Source [id number] 07/25/2020 12:50:00 PM EDT [facility] Name Value Range Interpretation Code Description Data Genevieve rce(s) Supporting Document(s) SARS-CoV-2 (COVID-19) RNA [Presence] in Respiratory specimen by UYLIYA with probe detection Not Detected [facility] This lab was ordered by [facility] and reported by [employer]. ID Date Data Source [id number] 07/18/2020 10:33:00 AM EDT [facility] Name Value Range Interpretation Code Description Data Genevieve rce(s) Supporting Document(s) SARS-CoV-2 (COVID-19) RNA [Presence] in Respiratory specimen by YULIYA with probe detection Not Detected [facility] This lab was ordered by [facility] and reported by [employer]. ID Date Data Source [id number] 07/11/2020 10:37:00 AM EDT [facility] Name Value Range Interpretation Code Description Data Genevieve rce(s) Supporting Document(s) SARS-CoV-2 (COVID-19) RNA [Presence] in Respiratory specimen by YULIYA with probe detection Not Detected [facility] This lab was ordered by [facility] and reported by [employer] ID Date Data Source [id number] 07/04/2020 03:00:00 PM EDT [facility] Name Value Range Interpretation Code Description Data Genevieve rce(s) Supporting Document(s) SARS coronavirus 2 RNA Not Detected [facility] This lab was ordered by [facility] and reported by [facility]. ID Date Data Source [id number] 06/27/2020 12:00:00 PM EDT [facility] Name Value Range Interpretation Code Description Data Genevieve rce(s) Supporting Document(s) SARS coronavirus 2 RNA Not Detected [facility] This lab was ordered by [facility] and reported by [facility]. ID Date Data Source [id number] 06/20/2020 01:45:00 PM EST [facility] Name Value Range Interpretation Code Description Data Genevieve rce(s) Supporting Document(s) SARS coronavirus 2 RNA Not Detected [facility] This lab was ordered by [facility] and reported by [facility]. ID Date Data Source [id number] 06/13/2020 01:00:00 PM EST [facility] Name Value Range Interpretation Code Description Data Genevieve rce(s) Supporting Document(s) SARS coronavirus 2 RNA Not Detected [facility] [place] This lab was ordered by [facility] and reported by [facility]. ID Date Data Source [id number] 06/06/2020 12:30:00 PM EST [facility] Name Value Range Interpretation Code Description Data Genevieve rce(s) Supporting Document(s) SARS coronavirus 2 RNA Not Detected [facility] [place] This lab was ordered by [facility] and reported by [facility]. ID Date Data Source [id number] 05/30/2020 12:50:00 PM EST [facility] Name Value Range Interpretation Code Description Data Genevieve rce(s) Supporting Document(s) SARS coronavirus 2 RNA Not Detected [facility] [place] This lab was ordered by [facility] and reported by [facility]. ID Date Data Source [id number] 05/23/2020 02:00:00 PM EST [facility] Name Value Range Interpretation Code Description Data Genevieve rce(s) Supporting Document(s) SARS coronavirus 2 RNA Not Detected [facility] [place] This lab was ordered by [facility] and reported by [facility]. ID Date Data Source [id number] 05/16/2020 10:30:00 AM EST [facility] Name Value Range Interpretation Code Description Data Genevieve rce(s) Supporting Document(s) SARS coronavirus 2 RNA Not Detected [facility] [place] This lab was ordered by [facility] and reported by [facility]. ID Date Data Source [id number] 05/09/2020 02:00:00 PM EST [facility] Name Value Range Interpretation Code Description Data Genevieve rce(s) Supporting Document(s) SARS coronavirus 2 RNA Not Detected [facility] [place] This lab was ordered by [facility] and reported by [facility]. ID Date Data Source [id number] 05/02/2020 10:30:00 AM EST [facility] Name Value Range Interpretation Code Description Data Genevieve rce(s) Supporting Document(s) SARS coronavirus 2 RNA Not Detected [facility] This lab was ordered by [facility] and reported by [facility]. ID Date Data Source [id number] 04/25/2020 03:00:00 PM EST [facility] Name Value Range Interpretation Code Description Data Genevieve rce(s) Supporting Document(s) SARS coronavirus 2 RNA Not Detected [facility] This lab was ordered by [facility] and reported by [facility]. ID Date Data Source [id number] 04/18/2020 01:00:00 PM EST [facility] Name Value Range Interpretation Code Description Data Genevieve rce(s) Supporting Document(s) SARS coronavirus 2 RNA Not Detected [facility] This lab was ordered by [facility] and reported by [facility]. ID Date Data Source [id number] 04/11/2020 03:05:00 PM EST [facility] Name Value Range Interpretation Code Description Data Genevieve rce(s) Supporting Document(s) SARS coronavirus 2 RNA [facility] This lab was ordered by [facility] and reported by [facility]. ID Date Data Source [id number] 04/04/2020 02:00:00 PM EST [facility] Name Value Range Interpretation Code Description Data Genevieve rce(s) Supporting Document(s) SARS coronavirus 2 RNA [facility] This lab was ordered by [facility] and reported by [facility]. ID Date Data Source [id number] 03/28/2020 09:15:00 AM EST [facility] Name Value Range Interpretation Code Description Data Genevieve rce(s) Supporting Document(s) SARS coronavirus 2 RNA [facility] This lab was ordered by [facility] and reported by [facility]. ID Date Data Source [id number] 03/21/2020 01:05:00 PM EST [facility] Name Value Range Interpretation Code Description Data Genevieve rce(s) Supporting Document(s) SARS coronavirus 2 RNA [facility] This lab was ordered by [facility] and reported by [facility]. ID Date Data Source [id number] 03/16/2020 08:39:00 AM EST [facility] Name Value Range Interpretation Code Description Data Genevieve rce(s) Supporting Document(s) SARS coronavirus 2 RNA [facility] This lab was ordered by [facility] and reported by [facility]. ID Date Data Source [id number] 03/07/2020 09:00:00 AM EST [facility] Name Value Range Interpretation Code Description Data Genevieve rce(s) Supporting Document(s) SARS coronavirus 2 RNA [facility] This lab was ordered by [facility] and reported by [facility]. ID Date Data Source [id number] 02/29/2020 10:30:00 AM EST [facility] Name Value Range Interpretation Code Description Data Genevieve rce(s) Supporting Document(s) SARS coronavirus 2 RNA [facility] This lab was ordered by [facility] and reported by [facility]. ID Date Data Source [id number] 02/22/2020 12:00:00 PM EST [facility] Name Value Range Interpretation Code Description Data Genevieve rce(s) Supporting Document(s) SARS coronavirus 2 RNA [facility] This lab was ordered by [facility] and reported by [facility]. ID Date Data Source [id number] 02/15/2020 10:38:00 AM EST [facility] Name Value Range Interpretation Code Description Data Genevieve rce(s) Supporting Document(s) SARS coronavirus 2 RNA [facility] This lab was ordered by [facility] and reported by [facility]. ID Date Data Source [id number] 02/08/2020 02:00:00 PM EDT [facility] Name Value Range Interpretation Code Description Data Genevieve rce(s) Supporting Document(s) SARS coronavirus 2 RNA [facility] This lab was ordered by [facility] and reported by [facility]. ID Date Data Source [id number] 02/01/2020 02:25:00 PM EDT [facility] Name Value Range Interpretation Code Description Data Genevieve rce(s) Supporting Document(s) SARS coronavirus 2 RNA [facility] This lab was ordered by [facility] and reported by [facility]. ID Date Data Source [id number] 01/25/2020 10:35:00 AM EDT [facility] Name Value Range Interpretation Code Description Data Genevieve rce(s) Supporting Document(s) SARS coronavirus 2 RNA [facility] This lab was ordered by [facility] and reported by [facility]. ID Date Data Source [id number] 01/18/2020 10:00:00 AM EDT [facility] Name Value Range Interpretation Code Description Data Genevieve rce(s) Supporting Document(s) SARS coronavirus 2 RNA [facility] This lab was ordered by [facility] and reported by [facility]. ID Date Data Source [id number] 01/11/2020 09:00:00 AM EDT [facility] Name Value Range Interpretation Code Description Data Genevieve rce(s) Supporting Document(s) SARS coronavirus 2 RNA [facility] This lab was ordered by [facility] and reported by [facility]. ID Date Data Source [id number] 01/06/2020 10:00:00 AM EDT [facility] Name Value Range Interpretation Code Description Data Genevieve rce(s) Supporting Document(s) SARS coronavirus 2 RNA [facility] This lab was ordered by [facility] and reported by [facility]. ID Date Data Source [id number] 12/28/2019 11:05:00 AM EDT [facility] Name Value Range Interpretation Code Description Data Genevieve rce(s) Supporting Document(s) SARS coronavirus 2 RNA [facility] This lab was ordered by [facility] and reported by [facility]. ID Date Data Source [id number] 12/21/2019 12:00:00 PM EDT [facility] Name Value Range Interpretation Code Description Data Genevieve rce(s) Supporting Document(s) SARS coronavirus 2 RNA [facility] This lab was ordered by [facility] and reported by [facility]. ID Date Data Source [id number] 12/16/2019 11:00:00 AM EDT [facility] Name Value Range Interpretation Code Description Data Genevieve rce(s) Supporting Document(s) SARS coronavirus 2 RNA [facility] This lab was ordered by [facility] and reported by [facility]. Procedure Social History Code Duration Value Status Description Data Source(s ) Smoking 01/27/2020 12:00:00 AM EDT Unknown if ever smoked comp leted Unknown if ever smoked [facility] ([facility]) Smoking 01/12/2020 12:00:00 AM EDT Unknown if ever smoked comp leted Unknown if ever smoked [facility] ([facility]) Caffeine Use Details 12/13/2019 12:00:00 AM EDT completed [facility] ([facility]) 12/13/2019 12:00:00 AM EDT Ex-cigarette smoker completed Ex-cigarette smoker [facility] ([facility]) Smoking 12/13/2019 12:00:00 AM EDT Former smoker completed Former smoker [facility] ([facility]) Vital Signs ID Date Data Source UNK Name Value Range Interpretation Code Description Data Source(s) Diastolic blood pressure 84 mm[Hg] 84 mm[Hg] [facility] ([facility]) Body height 66 [in_i] 66 [in_i] [facility] ([facility]) Body mass index (BMI) [Ratio] 29.9 kg/m2 29.9 k g/m2 [facility] ([facility]) Systolic blood pressure 132 mm[Hg] 132 mm[Hg] A THENA ([facility]) Body weight 2962 [oz_av] 2962 [oz_av] [facility] ([facility]) Diastolic blood pressure 93 mm[Hg] 93 mm[Hg] [facility] ([facility]) Body height 66 [in_i] 66 [in_i] [facility] ([facility]) Systolic blood pressure 153 mm[Hg] 153 mm[Hg] A [facility] ([facility]) Diastolic blood pressure 93 mm[Hg] 93 mm[Hg] [facility] ([facility]) Body height 66 [in_i] 66 [in_i] [facility] ([facility]) Systolic blood pressure 153 mm[Hg] 153 mm[Hg] A THENA ([facility]) Diastolic blood pressure 85 mm[Hg] 85 mm[Hg] [facility] ([facility]) Body height 66 [in_i] 66 [in_i] [facility] ([facility]) Body mass index (BMI) [Ratio] 29.6 kg/m2 29.6 k g/m2 [facility] ([facility]) Systolic blood pressure 127 mm[Hg] 127 mm[Hg] A THENA ([facility]) Body weight 2934.4 [oz_av] 2934.4 [oz_av] ATHEN A ([facility]) Diastolic blood pressure 85 mm[Hg] 85 mm[Hg] [facility] ([facility]) Body height 66 [in_i] 66 [in_i] [facility] ([facility]) Body mass index (BMI) [Ratio] 29.6 kg/m2 29.6 k g/m2 [facility] ([facility]) Systolic blood pressure 127 mm[Hg] 127 mm[Hg] A THENA ([facility]) Body weight 2934.4 [oz_av] 2934.4 [oz_av] ATHEN A ([facility]) Diastolic blood pressure 85 mm[Hg] 85 mm[Hg] [facility] ([facility]) Body height 66 [in_i] 66 [in_i] [facility] ([facility]) Body mass index (BMI) [Ratio] 29.6 kg/m2 29.6 k g/m2 [facility] ([facility]) Systolic blood pressure 127 mm[Hg] 127 mm[Hg] A THENA ([facility]) Body weight 2934.4 [oz_av] 2934.4 [oz_av] ATHEN A ([facility]) Body height 165.74 cm 165.74 cm [facility] ([facility] Body weight 83.461 kg 83.461 kg [facility] ([facility]) Systolic blood pressure 120 mm[Hg] [...] [facility]) Sumatriptan 25 MG Oral Tablet [facility] ([facility]) Prednisone 5 MG Oral Tablet [facility] ([facility]) Phenazopyridine hydrochloride 200 MG Oral Tablet [facility] ([facility]) NITROFURANTOIN, MACROCRYSTALS 25 MG / Ni trofurantoin, Monohydrate 75 MG Oral Capsule [facility] ([facility]) Hydrocortisone 10 MG/ML / Neomycin 3.5 M G/ML / Polymyxin B 63139 UNT/ML Otic Suspension [facility] ([facility]) Hydroxyzine Hydrochloride 25 MG Oral Tablet [facility] ([facility]) Cefuroxime 500 MG Oral Tablet [facility] ([facility]) Prednisone 5 MG Oral Tablet [facility] ([facility]) Hydrocortisone 10 MG/ML / Neomycin 3.5 M G/ML / Polymyxin B 22688 UNT/ML Otic Suspension [facility] ([facility]) Hydroxyzine Hydrochloride 25 MG Oral Tablet [facility] ([facility]) Cefuroxime 500 MG Oral Tablet [facility] ([facility]) Prednisone 5 MG Oral Tablet [facility] ([facility]) Hydrocortisone 10 MG/ML / Neomycin 3.5 M G/ML / Polymyxin B 00540 UNT/ML Otic Suspension [facility] ([facility]) Cefuroxime 500 MG Oral Tablet [facility] ([facility])
[2021-02-09] MEDS ORDERED: HYDR-3713 PO (12:51)
[2021-02-09] MEDS ORDERED: DOXY-443 PO (12:51)
[2021-02-09 12:53] LABS: ERYTHROCYTE SEDIMENTATION RATE 41 mm/hr (0-20)
[2021-02-09 13:21] VITALS: BP 121/65
== END 2021-02-09 13:21 | disposition home or self-care (01) ==
LOC: M ED 08:19
DX: L02.413 Cutaneous abscess of right upper limb (principal); J45.909 Unspecified asthma, uncomplicated; F17.200 Nicotine dependence, unspecified, uncomplicated; Z79.2 Long term (current) use of antibiotics; Z88.0 Allergy status to penicillin; Z98.890 Other specified postprocedural states

== ENCOUNTER 2021-07-01 11:42 | Emergency (ER) | payer OTHER ==
[~2021-07-01] VITALS: Ht 167.6 cm; Wt 81.8 kg
[~2021-07-01 11:42] MED LIST changes: +CEPH500C PO; +DOXY-443 PO; +HYDR-3713 PO
[2021-07-01] MEDS ORDERED: IBUP200C25 PO (11:50)
[2021-07-01 12:29] LABS: BASO # 0.1 10^3/uL (0.0-0.2); BASO % 0.6 % (0.0-1.0); EOS # 0.2 10^3/uL (0.0-0.5); EOS % 1.7 % (0.0-3.0); HEMATOCRIT 39.3 % (36.0-47.0); HEMOGLOBIN 13.1 g/dl (12.0-15.5); LYMPH # 1.7 10^3/uL (1.5-5.0); LYMPH % 19.5 % (24.0-44.0); MEAN CORPUSCULAR HGB CONC 33.3 g/dl (32.0-36.5); MEAN CORPUSCULAR VOLUME 87.1 fl (80.0-96.0); MONO # 0.4 10^3/uL (0.0-0.8); MONO % 4.3 % (2.0-8.0); NEUTROPHILS # 6.4 10^3/uL (1.5-8.5); NEUTROPHILS % 73.6 % (36.0-66.0); PLATELET COUNT, AUTOMATED 228 10^3/uL (150-450); RED BLOOD COUNT 4.51 10^6/uL (4.00-5.40); WHITE BLOOD COUNT 8.7 10^3/uL (4.0-10.0)
[2021-07-01] MEDS ORDERED: ASPIRIN 81 MG CHEW TABLET PO ONE (12:40)
[2021-07-01] MEDS ORDERED: NITROGLYCERIN 0.4 MG SUBL TABLET SL PRN (12:40)
[2021-07-01 12:57] VITALS: BP 127/82
[2021-07-01 13:06] LABS: ALBUMIN 3.6 GM/DL (3.2-5.2); ALT/SGPT 20 U/L (12-78); BILIRUBIN,DIRECT < 0.1 MG/DL (0.0-0.2); BILIRUBIN,TOTAL 0.3 MG/DL (0.2-1.0); BLOOD UREA NITROGEN 10 MG/DL (7-18); CALCIUM LEVEL 8.8 MG/DL (8.5-10.1); CARBON DIOXIDE LEVEL 27 MEQ/L (21-32); CHLORIDE LEVEL 106 MEQ/L (98-107); CREATININE FOR GFR 0.77 MG/DL (0.55-1.30); GLOMERULAR FILTRATION RATE > 60.0 (>60); GLUCOSE, FASTING 111 MG/DL (70-100); LIPASE 149 U/L (73-393); POTASSIUM SERUM 4.1 MEQ/L (3.5-5.1); SODIUM LEVEL 138 MEQ/L (136-145); TOTAL PROTEIN 7.2 GM/DL (6.4-8.2)
[2021-07-01] MEDS ORDERED: ISOVUE-370 76% 100ML VIAL As Ordered ONE (13:26)
[2021-07-01 15:32] VITALS: BP 135/79
== END 2021-07-01 15:47 | disposition home or self-care (01) ==
LOC: M ED 11:42
DX: R07.9 Chest pain, unspecified (principal); R06.02 Shortness of breath; J45.909 Unspecified asthma, uncomplicated; F17.210 Nicotine dependence, cigarettes, uncomplicated; Z88.0 Allergy status to penicillin; Z79.1 Long term (current) use of non-steroidal anti-inflammatories (NSAID)
CPT/HCPCS: 71045; 71275; 80047; 80048; 80076; 83690; 84439; 84443; 84702; 85025; 93005; 93041; 94760; 99285; Q9967

== ENCOUNTER → 2021-12-02 | Outpatient (REF) | payer OTHER ==
[~2021-12-02] MED LIST changes: +IBUP200C25 PO
== END ==
LOC: M LAB REF 18:19
PROVIDERS: ATTEND Physician Assistant Medical
DX: N39.0 Urinary tract infection, site not specified (principal)

== ENCOUNTER → 2021-12-19 | Outpatient (REF) | payer OTHER ==
[2021-12-19 22:32] LABS: APPEARANCE, URINE MANUAL CLOUDY (CLEAR); COLOR, URINE MANUAL YELLOW (YELLOW)
[2021-12-19 22:34] LABS: GLUCOSE, URINE (UA) MANUAL NEGATIVE (NEGATIVE); PROTEIN, URINE MANUAL TRACE mg/dL (NEGATIVE)
[2021-12-19 22:35] LABS: BILIRUBIN, URINE MANUAL NEGATIVE (NEGATIVE); BLOOD URINE MANUAL POSITIVE (NEGATIVE); KETONE, URINE MANUAL 1+ mg/dL (NEGATIVE); LEUKOCYTE ESTERASE, URINE MAN POSITIVE (NEGATIVE); NITRITE, URINE MANUAL NEGATIVE (NEGATIVE); UROBILINOGEN, URINE MANUAL NORMAL (NORMAL)
[2021-12-19 22:53] LABS: BACTERIA, URINE SMALL AMOUNT; HYALINE CAST, URINE NONE SEEN /lpf (0-1); MUCUS, URINE LARGE AMOUNT (NEGATIVE); SQUAMOUS EPITHELIAL CELL URINE SMALL AMOUNT /hpf (SMALL AMT); TRANSITIONAL EPI CELLS, URINE SMALL AMOUNT /hpf; YEAST, URINE SMALL AMOUNT
== END ==
LOC: M LAB REF 21:31
PROVIDERS: ATTEND Physician Assistant
DX: N39.0 Urinary tract infection, site not specified (principal)

== ENCOUNTER → 2022-02-05 | Outpatient (REF) | payer OTHER | LOC: M LAB REF 11:31 | PROVIDERS: ATTEND Physician Assistant Medical | DX: B34.9 Viral infection, unspecified (principal) ==

== ENCOUNTER → 2022-02-28 | Outpatient (REF) | payer OTHER, MEDICAID ==
[2022-02-28 19:27] LABS: BLOOD UREA NITROGEN 14 MG/DL (9-23); CALCIUM LEVEL 9.5 MG/DL (8.5-10.1); CARBON DIOXIDE LEVEL 25 MMOL/L (20-31); CHLORIDE LEVEL 106 MMOL/L (98-107); CHOLESTEROL LEVEL 164 MG/DL (<200); CHOLESTEROL RISK RATIO 5.06 (<5); CREATININE FOR GFR 0.67 MG/DL (0.55-1.30); GLOMERULAR FILTRATION RATE > 60.0 (>60); GLUCOSE, FASTING 106 MG/DL (60-100); HDL CHOLESTEROL 32.4 MG/DL (>40); LDL CHOLESTEROL 107.8 MG/DL (<100); NON-HDL-C 132 MG/DL; POTASSIUM SERUM 4.1 MMOL/L (3.5-5.1); SODIUM LEVEL 140 MMOL/L (136-145); TRIGLYCERIDES LEVEL 119 MG/DL (<150)
== END ==
LOC: M LAB REF 16:34
PROVIDERS: ATTEND Physician Assistant
DX: Z13.220 Encounter for screening for lipoid disorders (principal); E66.9 Obesity, unspecified; I10 Essential (primary) hypertension

== ENCOUNTER → 2022-08-06 | Outpatient (REF) | payer OTHER, MEDICAID ==
[2022-08-06 17:37] LABS: ALBUMIN 3.7 G/DL (3.2-5.2); BLOOD UREA NITROGEN 13 MG/DL (9-23); CARBON DIOXIDE LEVEL 29 MMOL/L (20-31); CHLORIDE LEVEL 104 MMOL/L (98-107); CREATININE FOR GFR 0.84 MG/DL (0.55-1.30); GLOMERULAR FILTRATION RATE > 60.0 (>60); GLUCOSE, FASTING 83 MG/DL (60-100); PHOSPHORUS LEVEL 2.9 MG/DL (2.5-4.9); POTASSIUM SERUM 4.4 MMOL/L (3.5-5.1); SODIUM LEVEL 138 MMOL/L (136-145)
== END ==
LOC: M LAB REF 16:20
PROVIDERS: ATTEND Physician Assistant
DX: I10 Essential (primary) hypertension (principal)

== ENCOUNTER → 2022-10-02 | Outpatient (REF) | LOC: M EMP 14:12 | PROVIDERS: ATTEND Family Medicine | DX: Z11.52 Encounter for screening for COVID-19 (principal) ==

== ENCOUNTER → 2022-10-05 | Outpatient (REF) | LOC: M EMP 14:34 | PROVIDERS: ATTEND Family Medicine | DX: Z11.52 Encounter for screening for COVID-19 (principal) ==

== ENCOUNTER 2022-10-19 13:23 | Emergency (ER) | payer OTHER ==
[~2022-10-19] VITALS: Ht 167.6 cm; Wt 90.3 kg
[2022-10-19 13:24] VITALS: TEMP 98
[2022-10-19] MEDS ORDERED: TRIA37.577 (13:38)
[2022-10-19] MEDS ORDERED: ONDANSETRON 4MG 2ML VIAL IV ONE (14:00)
[2022-10-19 14:31] LABS: BASO % 0.4 % (0.0-1.0); EOS # 0.1 10^3/uL (0.0-0.5); EOS % 0.6 % (0.0-3.0); HEMATOCRIT 40.8 % (36.0-47.0); HEMOGLOBIN 13.6 g/dl (12.0-15.5); LYMPH # 1.6 10^3/uL (1.5-5.0); LYMPH % 15.6 % (24.0-44.0); MEAN CORPUSCULAR HEMOGLOBIN 28.8 pg (27.0-33.0); MEAN CORPUSCULAR HGB CONC 33.3 g/dl (32.0-36.5); MEAN CORPUSCULAR VOLUME 86.3 fl (80.0-96.0); MONO # 0.6 10^3/uL (0.0-0.8); MONO % 5.9 % (2.0-8.0); NEUTROPHILS # 7.7 10^3/uL (1.5-8.5); NEUTROPHILS % 77.2 % (36.0-66.0); PLATELET COUNT, AUTOMATED 224 10^3/uL (150-450); RED BLOOD COUNT 4.73 10^6/uL (4.00-5.40)
[2022-10-19 14:46] LABS: INR 0.97; PROTHROMBIN TIME 13.1 SECONDS (12.5-14.5)
[2022-10-19 14:53] LABS: HCG, SERUM QUALITATIVE NEGATIVE (NEGATIVE); LIPASE 41 U/L (12-53)
[2022-10-19 14:55] LABS: ALKALINE PHOSPHATASE 89 U/L (46-116); ALT/SGPT 19 U/L (7.0-40); AST/SGOT 21 U/L (<34); BILIRUBIN,DIRECT 0.2 MG/DL (<0.4); BILIRUBIN,TOTAL 0.6 MG/DL (0.3-1.2); BLOOD UREA NITROGEN 21 MG/DL (9-23); CARBON DIOXIDE LEVEL 28 MMOL/L (20-31); CHLORIDE LEVEL 101 MMOL/L (98-107); CK-MB VALUE MASS < 1.0 NG/ML (<3.6); CREATININE FOR GFR 1.27 MG/DL (0.55-1.30); GLUCOSE, FASTING 90 MG/DL (60-100); POTASSIUM SERUM 3.3 MMOL/L (3.5-5.1); SODIUM LEVEL 138 MMOL/L (136-145); TOTAL PROTEIN 7.4 G/DL (5.7-8.2)
[2022-10-19 14:57] LABS: FREE T4 1.11 NG/DL (0.89-1.76); THYROID STIMULATING HORMONE 0.626 uIU/ML (0.55-4.78)
[2022-10-19 15:07] LABS: CPK CREATINE PHOSPHOKINASE 140 U/L (34-145); MB/CK RELATIVE INDEX 0.71 (< OR =4)
[2022-10-19] MEDS ORDERED: ISOVUE-370 76% 100ML VIAL As Ordered ONE (15:07)
[2022-10-19] MEDS ORDERED: POTASSIUM CHLORIDE 10MEQ SR TABLET PO ONE (16:45)
[2022-10-19 16:53] LABS: CPK CREATINE PHOSPHOKINASE 129 U/L (34-145)
[2022-10-19 16:54] LABS: CK-MB VALUE MASS < 1.0 NG/ML (<3.6); MB/CK RELATIVE INDEX 0.77 (< OR =4)
[2022-10-19 17:15] VITALS: BP 139/91; O2SAT 99
== END 2022-10-19 18:23 | disposition home or self-care (01) ==
LOC: M ED 13:23
DX: R07.9 Chest pain, unspecified (principal); R00.2 Palpitations; R42 Dizziness and giddiness; F41.9 Anxiety disorder, unspecified; F32.A Depression, unspecified; J45.909 Unspecified asthma, uncomplicated; E66.9 Obesity, unspecified; Z68.32 Body mass index [BMI] 32.0-32.9, adult; M06.9 Rheumatoid arthritis, unspecified; Z87.891 Personal history of nicotine dependence; Z88.0 Allergy status to penicillin
CPT/HCPCS: 71275; 74177; 80048; 80076; 81001; 82550; 82553; 83690; 84439; 84443; 84703; 85025; 85610; 85730; 93005; 93041; 94760; 96374; 99285; J2405; Q9967

== ENCOUNTER → 2023-01-16 | Outpatient (REF) | payer OTHER, MEDICAID ==
[~2023-01-16] MED LIST changes: +TRIA37.577
[2023-01-16 18:10] LABS: BASO # 0.1 10^3/uL (0.0-0.2); BASO % 0.6 % (0.0-1.0); EOS # 0.3 10^3/uL (0.0-0.5); EOS % 3.9 % (0.0-3.0); HEMATOCRIT 42.9 % (36.0-47.0); HEMOGLOBIN 14.3 g/dl (12.0-15.5); LYMPH # 1.9 10^3/uL (1.5-5.0); LYMPH % 23.6 % (24.0-44.0); MEAN CORPUSCULAR HEMOGLOBIN 29.8 pg (27.0-33.0); MEAN CORPUSCULAR HGB CONC 33.3 g/dl (32.0-36.5); MEAN CORPUSCULAR VOLUME 89.4 fl (80.0-96.0); MONO # 0.3 10^3/uL (0.0-0.8); MONO % 3.4 % (2.0-8.0); NEUTROPHILS # 5.6 10^3/uL (1.5-8.5); NEUTROPHILS % 68.1 % (36.0-66.0); PLATELET COUNT, AUTOMATED 233 10^3/uL (150-450); WHITE BLOOD COUNT 8.2 10^3/uL (4.0-10.0)
[2023-01-16 18:47] LABS: ALKALINE PHOSPHATASE 76 U/L (46-116); ALT/SGPT 18 U/L (7.0-40); AST/SGOT 18 U/L (<34); BILIRUBIN,TOTAL 0.3 MG/DL (0.3-1.2); BLOOD UREA NITROGEN 13 MG/DL (9-23); CALCIUM LEVEL 9.5 MG/DL (8.5-10.1); CARBON DIOXIDE LEVEL 25 MMOL/L (20-31); CHLORIDE LEVEL 106 MMOL/L (98-107); FREE T4 1.18 NG/DL (0.89-1.76); GLOMERULAR FILTRATION RATE > 60.0 (>60); GLUCOSE, FASTING 89 MG/DL (60-100); POTASSIUM SERUM 4.5 MMOL/L (3.5-5.1); SODIUM LEVEL 137 MMOL/L (136-145); THYROID STIMULATING HORMONE 0.617 uIU/ML (0.55-4.78); TOTAL PROTEIN 7.4 G/DL (5.7-8.2)
== END ==
LOC: M LAB REF 16:30
PROVIDERS: ATTEND Nurse Practitioner Family
DX: R22.1 Localized swelling, mass and lump, neck (principal)

== ENCOUNTER → 2023-01-27 | Outpatient (CLI) | payer OTHER | LOC: M WHC 11:33 | PROVIDERS: ATTEND Nurse Practitioner Family | DX: R59.0 Localized enlarged lymph nodes (principal) ==

== ENCOUNTER → 2023-02-27 | Outpatient (REF) | LOC: M EMP 09:50 | PROVIDERS: ATTEND Family Medicine | DX: Z11.52 Encounter for screening for COVID-19 (principal) ==

== ENCOUNTER 2023-03-20 02:22 | Emergency (ER) | payer OTHER ==
[2023-03-20] MEDS ORDERED: NS 1,000 ML IV ONE (03:10)
[2023-03-20 03:14] LABS: BASO % 0.4 % (0.0-1.0); EOS # 0.3 10^3/uL (0.0-0.5); EOS % 2.7 % (0.0-3.0); HEMATOCRIT 38.4 % (36.0-47.0); HEMOGLOBIN 13.1 g/dl (12.0-15.5); LYMPH # 3.3 10^3/uL (1.5-5.0); LYMPH % 32.7 % (24.0-44.0); MEAN CORPUSCULAR HEMOGLOBIN 30.3 pg (27.0-33.0); MEAN CORPUSCULAR HGB CONC 34.1 g/dl (32.0-36.5); MEAN CORPUSCULAR VOLUME 88.7 fl (80.0-96.0); MONO # 0.4 10^3/uL (0.0-0.8); MONO % 4.4 % (2.0-8.0); NEUTROPHILS % 59.5 % (36.0-66.0); PLATELET COUNT, AUTOMATED 195 10^3/uL (150-450); RED BLOOD COUNT 4.33 10^6/uL (4.00-5.40); WHITE BLOOD COUNT 10.1 10^3/uL (4.0-10.0)
[2023-03-20 03:34] LABS: ETHYL ALCOHOL (ETHANOL) < 0.003 % (0.000-0.010)
[2023-03-20 03:36] LABS: BLOOD UREA NITROGEN 17 MG/DL (9-23); CALCIUM LEVEL 9.2 MG/DL (8.5-10.1); CARBON DIOXIDE LEVEL 25 MMOL/L (20-31); CHLORIDE LEVEL 107 MMOL/L (98-107); CREATININE FOR GFR 0.87 MG/DL (0.55-1.30); GLOMERULAR FILTRATION RATE > 60.0 (>60); GLUCOSE, FASTING 119 MG/DL (60-100); POTASSIUM SERUM 3.8 MMOL/L (3.5-5.1); SODIUM LEVEL 139 MMOL/L (136-145)
[2023-03-20 03:38] LABS: THYROID STIMULATING HORMONE 2.518 uIU/ML (0.55-4.78)
[2023-03-20 03:46] LABS: RSV AMPLIFICATION NEGATIVE (NEGATIVE)
[2023-03-20 03:50] LABS: HCG, SERUM QUALITATIVE NEGATIVE (NEGATIVE)
[2023-03-20 03:57] LABS: AMPHETAMINES LEVEL URINE NEGATIVE (NEGATIVE); BARBITURATES URINE NEGATIVE (NEGATIVE); BENZODIAZEPINES URINE NEGATIVE (NEGATIVE); CANNABINOIDS URINE NEGATIVE (NEGATIVE); COCAINE METABOLITE URINE NEGATIVE (NEGATIVE); METHADONE URINE NEGATIVE (NEGATIVE); OPIATES URINE NEGATIVE (NEGATIVE); PHENCYCLIDINE URINE NEGATIVE (NEGATIVE)
[2023-03-20 05:45] VITALS: BP 129/71; TEMP 97.6; O2SAT 98
== END 2023-03-20 06:03 | disposition home or self-care (01) ==
LOC: M ED 02:22
DX: I95.1 Orthostatic hypotension (principal); I10 Essential (primary) hypertension; Z79.899 Other long term (current) drug therapy; Z88.0 Allergy status to penicillin

== ENCOUNTER → 2023-03-26 | Outpatient (REF) | payer OTHER, MEDICAID ==
[2023-03-26 17:34] LABS: BASO % 0.5 % (0.0-1.0); EOS # 0.1 10^3/uL (0.0-0.5); EOS % 1.4 % (0.0-3.0); HEMATOCRIT 41.3 % (36.0-47.0); HEMOGLOBIN 13.7 g/dl (12.0-15.5); MEAN CORPUSCULAR HEMOGLOBIN 29.3 pg (27.0-33.0); MEAN CORPUSCULAR HGB CONC 33.2 g/dl (32.0-36.5); MEAN CORPUSCULAR VOLUME 88.2 fl (80.0-96.0); MONO # 0.3 10^3/uL (0.0-0.8); MONO % 3.6 % (2.0-8.0); NEUTROPHILS # 6.1 10^3/uL (1.5-8.5); PLATELET COUNT, AUTOMATED 224 10^3/uL (150-450); RED BLOOD COUNT 4.68 10^6/uL (4.00-5.40); WHITE BLOOD COUNT 8.5 10^3/uL (4.0-10.0)
[2023-03-26 18:05] LABS: FREE T4 1.27 NG/DL (0.89-1.76); THYROID STIMULATING HORMONE 1.428 uIU/ML (0.55-4.78)
[2023-03-26 18:14] LABS: ALKALINE PHOSPHATASE 76 U/L (46-116); ALT/SGPT 15 U/L (7.0-40); AST/SGOT 25 U/L (<34); BILIRUBIN,TOTAL 0.5 MG/DL (0.3-1.2); BLOOD UREA NITROGEN 10 MG/DL (9-23); CARBON DIOXIDE LEVEL 25 MMOL/L (20-31); CHLORIDE LEVEL 106 MMOL/L (98-107); CREATININE FOR GFR 0.71 MG/DL (0.55-1.30); GLOMERULAR FILTRATION RATE > 60.0 (>60); GLUCOSE, FASTING 95 MG/DL (60-100); MAGNESIUM LEVEL 1.9 MG/DL (1.8-2.4); POTASSIUM SERUM 4.4 MMOL/L (3.5-5.1); SODIUM LEVEL 139 MMOL/L (136-145); TOTAL PROTEIN 7.2 G/DL (5.7-8.2)
== END ==
LOC: M LAB REF 16:55
PROVIDERS: ATTEND Nurse Practitioner Family
DX: R22.1 Localized swelling, mass and lump, neck (principal); I10 Essential (primary) hypertension; R00.2 Palpitations

== ENCOUNTER → 2023-03-28 | Outpatient (CLI) | payer OTHER | LOC: M EKG 08:04 | PROVIDERS: ATTEND Nurse Practitioner Family | DX: R29.818 Other symptoms and signs involving the nervous system (principal) ==

== ENCOUNTER → 2023-09-04 | Outpatient (REF) ==
[~2023-09-04] MED LIST changes: +DOXY-323 PO; -DOXY-443 PO
== END ==
LOC: M EMP 09:42
PROVIDERS: ATTEND Family Medicine
DX: Z11.52 Encounter for screening for COVID-19 (principal)

== ENCOUNTER 2023-09-09 17:27 | Emergency (ER) | payer OTHER ==
[~2023-09-09] VITALS: Ht 170.2 cm; Wt 84.9 kg
[2023-09-09 17:28] VITALS: BP 150/85; TEMP 98.1; O2SAT 100
[2023-09-09 18:13] LABS: BASO % 0.4 % (0.0-1.0); EOS # 0.2 10^3/uL (0.0-0.5); EOS % 2.2 % (0.0-3.0); HEMATOCRIT 37.9 % (36.0-47.0); HEMOGLOBIN 12.7 g/dl (12.0-15.5); LYMPH % 30.3 % (24.0-44.0); MEAN CORPUSCULAR HEMOGLOBIN 29.6 pg (27.0-33.0); MEAN CORPUSCULAR HGB CONC 33.5 g/dl (32.0-36.5); MEAN CORPUSCULAR VOLUME 88.3 fl (80.0-96.0); MONO # 0.4 10^3/uL (0.0-0.8); MONO % 4.2 % (2.0-8.0); NEUTROPHILS # 6.3 10^3/uL (1.5-8.5); NEUTROPHILS % 62.7 % (36.0-66.0); PLATELET COUNT, AUTOMATED 232 10^3/uL (150-450); RED BLOOD COUNT 4.29 10^6/uL (4.00-5.40)
[2023-09-09 18:37] LABS: LIPASE 53 U/L (12-53)
[2023-09-09 18:40] LABS: ALBUMIN 3.7 G/DL (3.2-5.2); ALKALINE PHOSPHATASE 79 U/L (46-116); ALT/SGPT 13 U/L (7.0-40); AST/SGOT 10 U/L (<34); BILIRUBIN,DIRECT < 0.1 MG/DL (<0.4); BILIRUBIN,TOTAL 0.2 MG/DL (0.3-1.2); BLOOD UREA NITROGEN 12 MG/DL (9-23); CALCIUM LEVEL 9.4 MG/DL (8.5-10.1); CARBON DIOXIDE LEVEL 26 MMOL/L (20-31); CHLORIDE LEVEL 106 MMOL/L (98-107); GLOMERULAR FILTRATION RATE > 60.0 (>60); GLUCOSE, FASTING 107 MG/DL (60-100); SODIUM LEVEL 138 MMOL/L (136-145); TOTAL PROTEIN 6.5 G/DL (5.7-8.2)
[2023-09-09 18:57] LABS: HCG, SERUM QUALITATIVE POSITIVE (NEGATIVE)
[2023-09-09 20:13] LABS: HCG, SERUM QUANTITATIVE 2133.8 MIU/ML (<4.2)
== END 2023-09-09 23:45 | disposition home or self-care (01) ==
LOC: M ED 17:27
DX: R10.2 Pelvic and perineal pain (principal); Z88.1 Allergy status to other antibiotic agents; Z79.1 Long term (current) use of non-steroidal anti-inflammatories (NSAID); Z53.9 Procedure and treatment not carried out, unspecified reason

== ENCOUNTER 2023-09-16 13:19 | Emergency (ER) | payer OTHER ==
[~2023-09-16] VITALS: Ht 167.6 cm; Wt 84.9 kg
[2023-09-16] MEDS ORDERED: PRENTAB53 PO (13:24)
[2023-09-16 14:06] LABS: BASO # 0.1 10^3/uL (0.0-0.2); BASO % 0.5 % (0.0-1.0); EOS # 0.2 10^3/uL (0.0-0.5); EOS % 1.8 % (0.0-3.0); HEMATOCRIT 38.5 % (36.0-47.0); HEMOGLOBIN 12.8 g/dl (12.0-15.5); LYMPH % 21.2 % (24.0-44.0); MEAN CORPUSCULAR HEMOGLOBIN 29.2 pg (27.0-33.0); MEAN CORPUSCULAR HGB CONC 33.2 g/dl (32.0-36.5); MEAN CORPUSCULAR VOLUME 87.9 fl (80.0-96.0); MONO # 0.4 10^3/uL (0.0-0.8); MONO % 3.9 % (2.0-8.0); NEUTROPHILS # 6.8 10^3/uL (1.5-8.5); NEUTROPHILS % 72.3 % (36.0-66.0); PLATELET COUNT, AUTOMATED 224 10^3/uL (150-450); RED BLOOD COUNT 4.38 10^6/uL (4.00-5.40); WHITE BLOOD COUNT 9.4 10^3/uL (4.0-10.0)
[2023-09-16 14:37] LABS: BLOOD UREA NITROGEN 9 MG/DL (9-23); CALCIUM LEVEL 9.2 MG/DL (8.5-10.1); CARBON DIOXIDE LEVEL 27 MMOL/L (20-31); CHLORIDE LEVEL 105 MMOL/L (98-107); CREATININE FOR GFR 0.65 MG/DL (0.55-1.30); GLOMERULAR FILTRATION RATE > 60.0 (>60); GLUCOSE, FASTING 86 MG/DL (60-100); SODIUM LEVEL 137 MMOL/L (136-145)
[2023-09-16 14:50] LABS: HCG, SERUM QUANTITATIVE 33203.8 MIU/ML (<4.2)
[2023-09-16 17:42] VITALS: BP 123/74; TEMP 97.9; O2SAT 98
== END 2023-09-16 17:44 | disposition home or self-care (01) ==
LOC: M ED 13:19
DX: I10 Essential (primary) hypertension (principal); R94.31 Abnormal electrocardiogram [ECG] [EKG]; Z88.1 Allergy status to other antibiotic agents; Z79.1 Long term (current) use of non-steroidal anti-inflammatories (NSAID); Z79.810 Long term (current) use of selective estrogen receptor modulators (SERMs)

== ENCOUNTER 2023-10-08 09:03 | Emergency (ER) | payer OTHER ==
[~2023-10-08] VITALS: Ht 167.6 cm; Wt 85.2 kg
[~2023-10-08 09:03] MED LIST changes: +PRENTAB53 PO
[2023-10-08 11:37] LABS: HEMATOCRIT 41.4 % (36.0-47.0); HEMOGLOBIN 13.9 g/dl (12.0-15.5); MEAN CORPUSCULAR HEMOGLOBIN 29.4 pg (27.0-33.0); MEAN CORPUSCULAR HGB CONC 33.6 g/dl (32.0-36.5); MEAN CORPUSCULAR VOLUME 87.7 fl (80.0-96.0); PLATELET COUNT, AUTOMATED 230 10^3/uL (150-450); RED BLOOD COUNT 4.72 10^6/uL (4.00-5.40); WHITE BLOOD COUNT 12.2 10^3/uL (4.0-10.0)
[2023-10-08] MEDS: ONDANSETRON 4MG 2ML VIAL IV ONE (11:52)
[2023-10-08] MEDS: NS 1,000 ML IV ONE (11:52)
[2023-10-08] MEDS: ACETAMINOPHEN 325 MG TAB PO ONE (12:13)
[2023-10-08 12:15] LABS: BLOOD UREA NITROGEN 10 MG/DL (9-23); CALCIUM LEVEL 9.3 MG/DL (8.5-10.1); CARBON DIOXIDE LEVEL 26 MMOL/L (20-31); CHLORIDE LEVEL 102 MMOL/L (98-107); CREATININE FOR GFR 0.61 MG/DL (0.55-1.30); GLOMERULAR FILTRATION RATE > 60.0 (>60); GLUCOSE, FASTING 70 MG/DL (60-100); MAGNESIUM LEVEL 1.8 MG/DL (1.8-2.4); POTASSIUM SERUM 3.9 MMOL/L (3.5-5.1); SODIUM LEVEL 136 MMOL/L (136-145)
[2023-10-08] MEDS ORDERED: COLA100C5 PO (14:32)
[2023-10-08] MEDS ORDERED: PROM12.54 PR (14:32)
[2023-10-08] MEDS ORDERED: CEPH500C PO (14:33)
[2023-10-08 14:44] VITALS: BP 118/70; TEMP 98.9; O2SAT 98
== END 2023-10-08 14:47 | disposition home or self-care (01) ==
LOC: M ED 09:03
DX: K59.00 Constipation, unspecified (principal); R11.2 Nausea with vomiting, unspecified; R82.71 Bacteriuria; I10 Essential (primary) hypertension; J45.909 Unspecified asthma, uncomplicated; Z88.1 Allergy status to other antibiotic agents; Z79.2 Long term (current) use of antibiotics; Z79.1 Long term (current) use of non-steroidal anti-inflammatories (NSAID); Z79.810 Long term (current) use of selective estrogen receptor modulators (SERMs); Z79.899 Other long term (current) drug therapy
CPT/HCPCS: 36415; 76801; 80048; 81001; 83735; 84702; 85027; 86850; 86900; 86901; 87086; 93976; 96361; 96374; 99284; J2405

== ENCOUNTER → 2023-10-14 | Outpatient (REF) | payer OTHER ==
[~2023-10-14] MED LIST changes: +COLA100C5 PO; +PROM12.54 PR
== END ==
LOC: M PLALAB 10:22
PROVIDERS: ATTEND Advanced Practice Midwife
DX: Z34.81 Encounter for supervision of other normal pregnancy, first trimester (principal)

== ENCOUNTER → 2023-10-20 | Outpatient (CLI) | payer OTHER ==
[2023-10-20 11:40] LABS: HEMATOCRIT 40.5 % (36.0-47.0); HEMOGLOBIN 13.4 g/dl (12.0-15.5); MEAN CORPUSCULAR HEMOGLOBIN 29.5 pg (27.0-33.0); MEAN CORPUSCULAR HGB CONC 33.1 g/dl (32.0-36.5); PLATELET COUNT, AUTOMATED 224 10^3/uL (150-450); RED BLOOD COUNT 4.55 10^6/uL (4.00-5.40); WHITE BLOOD COUNT 10.5 10^3/uL (4.0-10.0)
[2023-10-20 12:03] LABS: TOTAL PROTEIN,RANDOM URINE 13.6 MG/DL (0.0-14.0)
[2023-10-20 12:05] LABS: URIC ACID 3.6 MG/DL (3.1-7.8)
[2023-10-20 12:07] LABS: CREATININE,RANDOM URINE 142.6 MG/DL; LDH LACTATE DEHYDROGENASE 156 U/L (120-246)
[2023-10-20 12:08] LABS: ALT/SGPT 17 U/L (7.0-40); AST/SGOT 13 U/L (<34); BILIRUBIN,TOTAL 0.3 MG/DL (0.3-1.2); CREATININE FOR GFR 0.59 MG/DL (0.55-1.30); GLOMERULAR FILTRATION RATE > 60.0 (>60)
[2023-10-20 12:39] LABS: HIV 1&2 SCREEN NEGATIVE (NEGATIVE)
[2023-10-20 12:46] LABS: HEPATITIS C VIRUS ABY INDEX < 0.02 INDEX (<0.8)
[2023-10-20 13:03] LABS: GC DNA AMPLIFICATION NEGATIVE (NEGATIVE)
== END ==
LOC: M PLALAB 09:07
PROVIDERS: ATTEND Advanced Practice Midwife
DX: Z34.81 Encounter for supervision of other normal pregnancy, first trimester (principal); Z3A.00 Weeks of gestation of pregnancy not specified

== ENCOUNTER → 2023-12-08 | Outpatient (CLI) | payer OTHER | LOC: M WHC 09:45 | PROVIDERS: ATTEND Specialist | DX: Z34.82 Encounter for supervision of other normal pregnancy, second trimester (principal) ==

== ENCOUNTER 2024-01-05 14:18 | Outpatient (CLI) | payer OTHER ==
[~2024-01-05] VITALS: Ht 167.6 cm; Wt 93.3 kg
[2024-01-05] MEDS ORDERED: TUMS500C PO (14:34)
[2024-01-05 14:39] VITALS: BP 134/70
[2024-01-05] MEDS ORDERED: HOME MED LIST COMPLETE! XX SCH (14:40)
[2024-01-05 15:19] LABS: HEMATOCRIT 34.5 % (36.0-47.0); HEMOGLOBIN 11.8 g/dl (12.0-15.5); MEAN CORPUSCULAR HEMOGLOBIN 30.6 pg (27.0-33.0); MEAN CORPUSCULAR HGB CONC 34.2 g/dl (32.0-36.5); MEAN CORPUSCULAR VOLUME 89.6 fl (80.0-96.0); PLATELET COUNT, AUTOMATED 200 10^3/uL (150-450); RED BLOOD COUNT 3.85 10^6/uL (4.00-5.40); WHITE BLOOD COUNT 13.2 10^3/uL (4.0-10.0)
[2024-01-05 15:33] LABS: INR 1.05; PROTHROMBIN TIME 13.4 SECONDS (12.5-14.5)
[2024-01-05 16:09] VITALS: BP 130/64
== END 2024-01-05 18:00 | disposition home or self-care (01) ==
LOC: M LDO 14:18
PROVIDERS: ATTEND Advanced Practice Midwife
DX: O26.892 Other specified pregnancy related conditions, second trimester (principal); R25.2 Cramp and spasm; O09.522 Supervision of elderly multigravida, second trimester; O10.012 Pre-existing essential hypertension complicating pregnancy, second trimester; M06.9 Rheumatoid arthritis, unspecified; Y92.9 Unspecified place or not applicable; Y93.9 Activity, unspecified; Y99.9 Unspecified external cause status; Z3A.22 22 weeks gestation of pregnancy
CPT/HCPCS: 36415; 59025; 76816; 85027; 85384; 85460; 85610; G0463

== ENCOUNTER → 2024-02-03 | Outpatient (CLI) | payer OTHER ==
[~2024-02-03] MED LIST changes: -DOXY-323 PO; +DOXY-441 PO
[2024-02-03 13:41] LABS: GLUCOSE CHALLENGE TEST 1 HOUR 144 MG/DL (LESS THAN 140)
[2024-02-03 13:44] LABS: HEMOGLOBIN 11.2 g/dl (12.0-15.5); MEAN CORPUSCULAR HEMOGLOBIN 30.4 pg (27.0-33.0); MEAN CORPUSCULAR HGB CONC 32.9 g/dl (32.0-36.5); MEAN CORPUSCULAR VOLUME 92.4 fl (80.0-96.0); PLATELET COUNT, AUTOMATED 215 10^3/uL (150-450); RED BLOOD COUNT 3.68 10^6/uL (4.00-5.40); WHITE BLOOD COUNT 9.8 10^3/uL (4.0-10.0)
[2024-02-03 15:53] LABS: GC DNA AMPLIFICATION NEGATIVE (NEGATIVE)
[2024-02-03 16:03] LABS: HIV 1&2 SCREEN NEGATIVE (NEGATIVE)
[2024-02-03 16:10] LABS: HEPATITIS C VIRUS ABY INDEX < 0.02 INDEX (<0.8)
== END ==
LOC: M PLALAB 08:02
PROVIDERS: ATTEND Obstetrics & Gynecology
DX: Z34.82 Encounter for supervision of other normal pregnancy, second trimester (principal)

== ENCOUNTER → 2024-02-04 | Outpatient (REF) | payer OTHER | LOC: M PLALAB 12:28 | PROVIDERS: ATTEND Obstetrics & Gynecology | DX: R73.09 Other abnormal glucose (principal); Z53.9 Procedure and treatment not carried out, unspecified reason ==

== ENCOUNTER → 2024-02-10 | Outpatient (CLI) | payer OTHER | LOC: M LAB 07:24 | PROVIDERS: ATTEND Specialist | DX: Z34.82 Encounter for supervision of other normal pregnancy, second trimester (principal) ==

== ENCOUNTER 2024-03-08 13:10 | Outpatient (CLI) | payer OTHER ==
[~2024-03-08] VITALS: Ht 167.6 cm; Wt 99.5 kg
[2024-03-08] MEDS ORDERED: ACET-907 PO (13:17)
[2024-03-08] MEDS ORDERED: HOME MED LIST COMPLETE! XX SCH (13:20)
[2024-03-08 13:24] VITALS: BP 132/73; O2SAT 99
[2024-03-08] MEDS: ACETAMINOPHEN 500 MG TAB PO ONE (13:54)
[2024-03-08 14:15] LABS: APPEARANCE, URINE HAZY (CLEAR); BACTERIA, URINE AUTO NEGATIVE (NEGATIVE); BILIRUBIN, URINE AUTO NEGATIVE (NEGATIVE); BLOOD, URINE BLOOD NEGATIVE (NEGATIVE); COLOR, URINE YELLOW (YELLOW); GLUCOSE, URINE (UA) AUTO NEGATIVE (NEGATIVE); KETONE, URINE AUTO NEGATIVE (NEGATIVE); LEUKOCYTE ESTERASE, URINE AUTO 2+ (NEGATIVE); MUCUS, URINE SMALL (NEGATIVE); NITRITE, URINE AUTO NEGATIVE (NEGATIVE); PROTEIN, URINE AUTO 1+ mg/dL (NEGATIVE); RBC, URINE AUTO 0 /HPF (0-3); SPECIFIC GRAVITY URINE AUTO 1.023 (1.002-1.035); SQUAMOUS EPITHELIAL CELL UR AU 8 /HPF (0-6); UROBILINOGEN, URINE AUTO 0.2 mg/dL (0.0-2.0); WBC, URINE AUTO 1 /HPF (0-3)
[2024-03-08 14:54] LABS: BASO % 0.2 % (0.0-1.0); EOS # 0.1 10^3/uL (0.0-0.5); EOS % 1.2 % (0.0-3.0); HEMATOCRIT 30.8 % (36.0-47.0); HEMOGLOBIN 10.5 g/dl (12.0-15.5); LYMPH # 1.7 10^3/uL (1.5-5.0); LYMPH % 18.1 % (24.0-44.0); MEAN CORPUSCULAR HEMOGLOBIN 29.8 pg (27.0-33.0); MEAN CORPUSCULAR HGB CONC 34.1 g/dl (32.0-36.5); MEAN CORPUSCULAR VOLUME 87.5 fl (80.0-96.0); MONO # 0.4 10^3/uL (0.0-0.8); MONO % 4.5 % (2.0-8.0); NEUTROPHILS # 7.2 10^3/uL (1.5-8.5); NEUTROPHILS % 75.6 % (36.0-66.0); PLATELET COUNT, AUTOMATED 198 10^3/uL (150-450); RED BLOOD COUNT 3.52 10^6/uL (4.00-5.40); WHITE BLOOD COUNT 9.5 10^3/uL (4.0-10.0)
[2024-03-08 15:05] VITALS: BP 127/68
[2024-03-08 15:16] LABS: ALBUMIN 2.4 G/DL (3.2-5.2); ALKALINE PHOSPHATASE 90 U/L (35-104); ALT/SGPT 20 U/L (7.0-40); AST/SGOT 22 U/L (<34); BILIRUBIN,TOTAL 0.2 MG/DL (0.3-1.2); BLOOD UREA NITROGEN 10 MG/DL (9-23); CALCIUM LEVEL 8.5 MG/DL (8.5-10.1); CARBON DIOXIDE LEVEL 24 MMOL/L (20-31); CHLORIDE LEVEL 108 MMOL/L (98-107); CREATININE FOR GFR 0.58 MG/DL (0.55-1.30); GLOMERULAR FILTRATION RATE > 60.0 (>60); GLUCOSE, FASTING 102 MG/DL (60-100); IRON (FE) 57 UG/DL (50-170); POTASSIUM SERUM 3.8 MMOL/L (3.5-5.1); SODIUM LEVEL 138 MMOL/L (136-145); TOTAL PROTEIN 5.7 G/DL (5.7-8.2)
[2024-03-08 15:18] LABS: FERRITIN 4.3 NG/ML (7.3-270.7)
[2024-03-08] MEDS ORDERED: FERR324T21 PO (15:44)
== END 2024-03-08 15:45 | disposition home or self-care (01) ==
LOC: M LDO 13:10
PROVIDERS: ATTEND Advanced Practice Midwife
DX: O99.013 Anemia complicating pregnancy, third trimester (principal); D50.9 Iron deficiency anemia, unspecified; R51.9 Headache, unspecified; Z3A.31 31 weeks gestation of pregnancy; O99.283 Endocrine, nutritional and metabolic diseases complicating pregnancy, third trimester; E86.0 Dehydration
CPT/HCPCS: 36415; 59025; 80053; 81001; 82728; 83540; 85025; G0463

== ENCOUNTER → 2024-04-01 | Outpatient (CLI) | payer OTHER ==
[~2024-04-01] MED LIST changes: +ACET-907 PO; +FERR324T21 PO
[2024-04-01 14:12] LABS: HEMATOCRIT 35.6 % (36.0-47.0); HEMOGLOBIN 11.7 g/dl (12.0-15.5); MEAN CORPUSCULAR HEMOGLOBIN 29.5 pg (27.0-33.0); MEAN CORPUSCULAR HGB CONC 32.9 g/dl (32.0-36.5); MEAN CORPUSCULAR VOLUME 89.7 fl (80.0-96.0); PLATELET COUNT, AUTOMATED 197 10^3/uL (150-450); RED BLOOD COUNT 3.97 10^6/uL (4.00-5.40); WHITE BLOOD COUNT 12.2 10^3/uL (4.0-10.0)
[2024-04-01 14:34] LABS: PERCENT SATURATION 9.2 % (13.2-45.0)
[2024-04-01 14:36] LABS: FERRITIN 5.8 NG/ML (7.3-270.7)
== END ==
LOC: M PLALAB 11:04
PROVIDERS: ATTEND Nurse Practitioner Family
DX: D50.9 Iron deficiency anemia, unspecified (principal)

== ENCOUNTER 2024-04-13 12:00 | Outpatient (CLI) | payer OTHER ==
[~2024-04-13] VITALS: Ht 167.6 cm; Wt 101.6 kg
[2024-04-13] VITALS (7 sets, daily range): BP systolic 120–144; BP diastolic 69–86; O2SAT 96–97
[2024-04-13] MEDS ORDERED: HOME MED LIST COMPLETE! XX SCH (12:25)
[2024-04-13] MEDS: FIORICET TAB PO ONE (13:22)
[2024-04-13 13:27] LABS: HEMATOCRIT 35.9 % (36.0-47.0); MEAN CORPUSCULAR HEMOGLOBIN 29.1 pg (27.0-33.0); MEAN CORPUSCULAR HGB CONC 33.4 g/dl (32.0-36.5); MEAN CORPUSCULAR VOLUME 87.1 fl (80.0-96.0); PLATELET COUNT, AUTOMATED 189 10^3/uL (150-450); RED BLOOD COUNT 4.12 10^6/uL (4.00-5.40); WHITE BLOOD COUNT 10.2 10^3/uL (4.0-10.0)
[2024-04-13 13:49] LABS: URIC ACID 4.5 MG/DL (3.1-7.8)
[2024-04-13 13:51] LABS: CREATININE,RANDOM URINE 35.7 MG/DL; LDH LACTATE DEHYDROGENASE 152 U/L (120-246)
[2024-04-13 13:52] LABS: ALT/SGPT 15 U/L (7.0-40); AST/SGOT 23 U/L (<34); BILIRUBIN,TOTAL 0.3 MG/DL (0.3-1.2); CREATININE FOR GFR 0.55 MG/DL (0.55-1.30); GLOMERULAR FILTRATION RATE > 60.0 (>60); TOTAL PROTEIN,RANDOM URINE < 6.0 MG/DL (0.0-14.0)
[2024-04-13] MEDS: BETAMETHASONE SOLUSPAN 6MG/ML 5ML VIAL IM SCH (17:54)
== END 2024-04-13 18:05 | disposition home or self-care (01) ==
LOC: M LDO 12:00
PROVIDERS: ATTEND Advanced Practice Midwife
DX: O10.013 Pre-existing essential hypertension complicating pregnancy, third trimester (principal); O99.013 Anemia complicating pregnancy, third trimester; O09.523 Supervision of elderly multigravida, third trimester; D50.9 Iron deficiency anemia, unspecified; R76.11 Nonspecific reaction to tuberculin skin test without active tuberculosis; Z3A.36 36 weeks gestation of pregnancy
CPT/HCPCS: 59025; 82247; 82570; 83615; 84156; 84450; 84460; 84550; 85027; 96372; G0463; J0702

== ENCOUNTER 2024-04-14 15:40 | Inpatient (IN) | payer OTHER ==
[~2024-04-14] VITALS: Ht 167.6 cm; Wt 101.0 kg
[2024-04-14 18:02] VITALS: BP 139/71
[2024-04-14] MEDS: BETAMETHASONE SOLUSPAN 6MG/ML 5ML VIAL IM ONE (18:04)
[2024-04-14 18:19] VITALS: BP 139/71
[2024-04-14 18:54] VITALS: BP 124/71
[2024-04-14 19:07] LABS: HEMATOCRIT 34.2 % (36.0-47.0); HEMOGLOBIN 11.5 g/dl (12.0-15.5); MEAN CORPUSCULAR HEMOGLOBIN 29.6 pg (27.0-33.0); MEAN CORPUSCULAR HGB CONC 33.6 g/dl (32.0-36.5); MEAN CORPUSCULAR VOLUME 88.1 fl (80.0-96.0); PLATELET COUNT, AUTOMATED 171 10^3/uL (150-450); RED BLOOD COUNT 3.88 10^6/uL (4.00-5.40); WHITE BLOOD COUNT 15.4 10^3/uL (4.0-10.0)
[2024-04-14] MEDS: PROMETHAZINE 25MG/ML 1ML VIAL IV ONE (19:36)
[2024-04-14] MEDS: LACTATED RINGER'S 1000 ML IV STA (19:42)
[2024-04-14 20:13] LABS: HEPATITIS C VIRUS ABY INDEX < 0.02 INDEX (<0.8)
[2024-04-14 20:19] VITALS: BP 114/55
[2024-04-14] MEDS ORDERED: TRANEXAMIC ACID INJection 1,000 MG in NS 100 ML IV PRN (20:40)
[2024-04-14] MEDS ORDERED: LIDOCAINE 1% MDV 20ML VIAL INFIL PRN (20:40)
[2024-04-14] MEDS ORDERED: CARBOPROST TROMETHAMINE 250 MCG/ML AMP IM PRN (20:40)
[2024-04-14] MEDS: miSOPROStol 50MCG 1/2 TABLET PO SCH (20:56)
[2024-04-14 22:02] VITALS: BP 95/55
[2024-04-14 23:29] VITALS: BP 101/54
[2024-04-15] VITALS (35 sets, daily range): BP systolic 79–153; BP diastolic 45–77
[2024-04-15] MEDS: CALCIUM CARBONATE 500 MG CHEW U/D PO PRN (01:17)
[2024-04-15] MEDS ORDERED: CALCIUM CARBONATE 500 MG CHEW U/D PO ONE (09:25)
[2024-04-15] MEDS: LR 1,000 ML IV SCH (16:11)
[2024-04-15] MEDS: OXYTOCIN DRIP 30 UNITS in IV 1 EA IV SCH (16:12)
[2024-04-15] MEDS ORDERED: diphenhydrAMINE 50MG/ML VIAL IV PRN (19:00)
[2024-04-15] MEDS ORDERED: EPIDURAL/PCA KEYS XX PRN (19:00)
[2024-04-15] MEDS ORDERED: NALOXONE INJ 0.4MG/1ML VIAL IV PRN (19:00)
[2024-04-15] MEDS ORDERED: LR 500 ML IV PRN (19:00)
[2024-04-15] MEDS: FENTANYL/ROPIVACAINE/NACL BAG 100 ML EPIDURAL SCH (19:03)
[2024-04-15] MEDS: ONDANSETRON 4MG 2ML VIAL IV PRN (22:23)
[2024-04-15] MEDS: ePHEDrine SULFATE 25 MG/5 ML(5MG/ML) SYRINGE IVP PRN (23:48)
[2024-04-16] VITALS (7 sets, daily range): BP systolic 102–116; BP diastolic 51–75; O2SAT 96–98
[2024-04-16] MEDS ORDERED: DIBUCAINE 1% OINTMENT 30GM TOP PRN (01:15)
[2024-04-16] MEDS ORDERED: IBUPROFEN 800 MG TAB PO PRN (01:15)
[2024-04-16] MEDS ORDERED: METHYLERGONOVINE MALEATE 0.2 MG TAB PO PRN (01:15)
[2024-04-16] MEDS ORDERED: ACETAMINOPHEN 325 MG TAB PO PRN (01:15)
[2024-04-16] MEDS ORDERED: IBUPROFEN 600MG TAB PO PRN (01:15)
[2024-04-16] MEDS ORDERED: RHOGAM 300MCG (1500IU) INJ IM SCH (01:15)
[2024-04-16] MEDS: PRENATAL VITAMINS CHEWABLE TABLET PO SCH (08:51)
[2024-04-16] MEDS: ACETAMINOPHEN 500 MG TAB PO PRN (16:16)
[2024-04-17 06:55] VITALS: BP 127/60; O2SAT 96
[2024-04-17] MEDS: DOCUSATE SODIUM 100MG CAPSULE PO PRN (09:55)
[2024-04-18] MEDS ORDERED: MEASLES,MUMPS,RUBELLA VACCINE INJ (MMR-II) SC.IMMUN ONE (09:00)
== END 2024-04-17 18:56 | disposition home or self-care (01) | DRG 560 ==
LOC: M LDO 15:40 → M LDI 18:10 → M OBS 04-16 02:47
PROVIDERS: ADMIT Obstetrics & Gynecology; ATTEND Specialist
PROC: 3E0P7GC Introduction of Other Therapeutic Substance into Female Reproductive, Via Natural or Artificial Opening (ICD-10-PCS; 2024-04-14)
PROC: 10E0XZZ Delivery of Products of Conception, External Approach (ICD-10-PCS; principal; 2024-04-16)
PROC: 10907ZC Drainage of Amniotic Fluid, Therapeutic from Products of Conception, Via Natural or Artificial Opening (ICD-10-PCS; 2024-04-16)
DX: O10.02 Pre-existing essential hypertension complicating childbirth (principal); Z37.0 Single live birth; Z3A.36 36 weeks gestation of pregnancy

== ENCOUNTER → 2024-08-11 | Outpatient (REF) ==
[2024-08-11 13:30] LABS: SOFIA COVID ANTIGEN NEGATIVE (NEGATIVE)
== END ==
LOC: M EMP 11:00
PROVIDERS: ATTEND Family Medicine
DX: Z11.52 Encounter for screening for COVID-19 (principal)

== ENCOUNTER 2024-12-02 11:45 | Emergency (ER) | payer OTHER ==
[~2024-12-02] VITALS: Ht 167.6 cm; Wt 92.8 kg
[2024-12-02] MEDS ORDERED: HOME MED LIST COMPLETE! XX SCH (14:25)
[2024-12-02] MEDS: KETOROLAC 30 MG/ML 1 ML VIAL IM ONE (15:13)
[2024-12-02] MEDS: ACETAMINOPHEN 500 MG TAB PO ONE (15:13)
[2024-12-02 15:41] LABS: BASO # 0.0 10^3/uL (0.0-0.2); BASO % 0.4 % (0.0-1.0); EOS # 0.2 10^3/uL (0.0-0.5); EOS % 2.6 % (0.0-3.0); LYMPH # 2.4 10^3/uL (1.5-5.0); LYMPH % 31.8 % (24.0-44.0); MONO # 0.3 10^3/uL (0.0-0.8); MONO % 4.4 % (2.0-8.0); NEUTROPHILS # 4.5 10^3/uL (1.5-8.5); NEUTROPHILS % 60.5 % (36.0-66.0); PLATELET COUNT, AUTOMATED 254 10^3/uL (150-450)
[2024-12-02 15:53] LABS: INR 0.99
[2024-12-02 16:09] LABS: ALT/SGPT 20 U/L (7.0-40); AST/SGOT 27 U/L (<34); CALCIUM LEVEL 9.5 MG/DL (8.5-10.1); CARBON DIOXIDE LEVEL 25 MMOL/L (20-31); CHLORIDE LEVEL 103 MMOL/L (98-107); CREATININE FOR GFR 0.69 MG/DL (0.55-1.30); GLOMERULAR FILTRATION RATE > 90.0 (>60); POTASSIUM SERUM 3.8 MMOL/L (3.5-5.1); SODIUM LEVEL 140 MMOL/L (136-145)
[2024-12-02] MEDS ORDERED: MEDR4PAK PO (20:12)
[2024-12-02] MEDS ORDERED: METH-1165 PO (20:12)
[2024-12-02 20:31] VITALS: BP 144/96; TEMP 97.6; O2SAT 96
== END 2024-12-02 20:33 | disposition home or self-care (01) ==
LOC: M ED 11:45
DX: M51.16 Intervertebral disc disorders with radiculopathy, lumbar region (principal); I10 Essential (primary) hypertension; Z88.1 Allergy status to other antibiotic agents; Z79.1 Long term (current) use of non-steroidal anti-inflammatories (NSAID); Z79.899 Other long term (current) drug therapy
CPT/HCPCS: 72131; 80048; 80076; 85025; 85610; 85730; 96372; 96374; 99284; J1885; J2919

== ENCOUNTER 2024-12-06 11:15 | Emergency (ER) | payer OTHER ==
[~2024-12-06] VITALS: Ht 167.6 cm; Wt 91.8 kg
[~2024-12-06 11:15] MED LIST changes: -IBUP-1022 PO; +IBUP600T42 PO; +MEDR4PAK PO; +METH-1165 PO
[2024-12-06] MEDS: KETOROLAC 60 MG/2 ML VIAL IM ONE (12:38)
[2024-12-06 12:45] VITALS: BP 151/97; TEMP 97.4; O2SAT 18
[2024-12-06] MEDS ORDERED: LIDO1ADH93 TOP (12:45)
[2024-12-06] MEDS: LIDOCAINE 5% PATCH TD ONE (12:49)
== END 2024-12-06 13:01 | disposition home or self-care (01) ==
LOC: M ED 11:15
DX: M48.061 Spinal stenosis, lumbar region without neurogenic claudication (principal); M54.50 Low back pain, unspecified; I10 Essential (primary) hypertension; F32.A Depression, unspecified; F41.9 Anxiety disorder, unspecified; Z88.1 Allergy status to other antibiotic agents; Z79.1 Long term (current) use of non-steroidal anti-inflammatories (NSAID); Z79.899 Other long term (current) drug therapy
CPT/HCPCS: 96372; 99283; J1885

== ENCOUNTER → 2024-12-22 | Outpatient (REF) | payer OTHER, MEDICAID ==
[~2024-12-22] MED LIST changes: +LIDO1ADH93 TOP
== END ==
LOC: M LAB REF 17:24
PROVIDERS: ATTEND Nurse Practitioner Family
DX: R32 Unspecified urinary incontinence (principal)

== ENCOUNTER → 2025-02-03 | Outpatient (CLI) | payer OTHER ==
[~2025-02-03] MED LIST changes: +PROHANCE 279.3MG/ML 15ML VIAL ONE; +PROHANCE 279.3MG/ML 5ML VIAL ONE
== END ==
LOC: M PLAIMG 07:46
PROVIDERS: ATTEND Nurse Practitioner Family
DX: M47.816 Spondylosis without myelopathy or radiculopathy, lumbar region (principal); M51.27 Other intervertebral disc displacement, lumbosacral region
CPT/HCPCS: 72158; A9576